=== PATIENT | male | born 1960 | race African-American/Black ===

== ENCOUNTER 2020-02-01 09:02 | Emergency (ER) | payer OTHER ==
[~2020-02-01] VITALS: Ht 185.4 cm; Wt 81.6 kg
[2020-02-01 09:30] VITALS: BP 159/84
[2020-02-01] MEDS ORDERED: KETOROLAC TROMETH 60MG/2ML VIAL IM ONE (09:45)
== END 2020-02-01 11:37 | disposition home or self-care (01) ==
LOC: ER 09:02
DX: S46.911A Strain of unspecified muscle, fascia and tendon at shoulder and upper arm level, right arm, initial encounter (principal); S39.012A Strain of muscle, fascia and tendon of lower back, initial encounter; I10 Essential (primary) hypertension; E78.5 Hyperlipidemia, unspecified; F17.210 Nicotine dependence, cigarettes, uncomplicated; X58.XXXA Exposure to other specified factors, initial encounter; Y93.89 Activity, other specified; Y92.89 Other specified places as the place of occurrence of the external cause; Y99.8 Other external cause status
CPT/HCPCS: 72100; 73030; 96372; 99284; J1885

== ENCOUNTER 2021-04-10 21:02 | Emergency (ER) | payer OTHER ==
[~2021-04-10] VITALS: Ht 177.8 cm; Wt 81.6 kg
[2021-04-10 22:24] LABS: Basophils # (auto) 0 10 ^3/uL (0-0.2); Basophils % (auto) 0.4 % (0.0-2.0); Eosinophils # (auto) 0 10 ^3/uL (0-0.8); Eosinophils % (auto) 0.4 % (0.0-7.0); Hematocrit 47.1 % (41.0-53.0); Hemoglobin 15.3 g/dL (13.5-17.5); Lymphocytes # (auto) 0.7 10 ^3/uL (0.4-5.4); Lymphocytes % (auto) 20.3 % (10.0-50.0); Mean Corpuscular Hemoglobin 27.6 pg (28.0-32.0); Mean Corpuscular Hgb Conc. 32.5 g/dL (32.0-36.0); Mean Corpuscular Volume 84.7 fL (80.0-100.0); Monocytes # (auto) 0.2 10 ^3/uL (0-1.3); Monocytes % (auto) 5.2 % (0.0-12.0); Neutrophils # (auto) 2.5 10 ^3/uL (1.6-8.6); Neutrophils % (auto) 73.7 % (37.0-80.0); Nucleated Red Blood Cells % 0.3 %; Red Blood Cells 5.57 10^6/uL (4.5-5.90); Red Cell Distribution Width 21.6 % (11.8-14.3); White Blood Cell 3.4 10^3/uL (4.4-10.8)
[2021-04-10 22:42] LABS: Albumin 1.7 g/dL (3.4-5.0)
[2021-04-10 22:48] LABS: Bilirubin, Total 0.2 mg/dL (0.2-1.0); Total Protein 4.4 g/dL (6.4-8.2)
[2021-04-10 22:53] LABS: Calcium 5.2 mg/dL (8.5-10.1); Potassium 2.4 mmol/L (3.5-5.1)
[2021-04-10] MEDS ORDERED: POTASSIUM CHL 20 Meq TABLET PO ONE (23:00)
[2021-04-10 23:36] LABS: BUN/Creatinine Ratio 17.6
[2021-04-11] MEDS ORDERED: SODIUM CHLORIDE 0.9% 1,000 ML IV ONE (03:30)
[2021-04-11] MEDS ORDERED: CALCIUM GLUC 1,000mg/50ml-NS 50 ML IV ONE (03:30)
[2021-04-11 05:00] VITALS: BP 113/80
== END 2021-04-11 06:16 | disposition home or self-care (01) ==
LOC: EDBD 21:02 → ER 21:05
DX: R55 Syncope and collapse (principal); I10 Essential (primary) hypertension; F17.210 Nicotine dependence, cigarettes, uncomplicated; E87.6 Hypokalemia; E87.0 Hyperosmolality and hypernatremia; E46 Unspecified protein-calorie malnutrition; E83.51 Hypocalcemia
CPT/HCPCS: 36415; 70450; 71045; 80053; 84132; 84484; 85025; 93005; 96365; 99285; J0610; J7030

== ENCOUNTER 2025-02-09 07:06 | Inpatient (IN) | payer MEDICARE, OTHER ==
[2025-02-09] VITALS (14 sets, daily range): BP systolic 111–174; BP diastolic 68–83; PULSE 89–120; RESP 19–38; TEMP 99.9–102.1; O2SAT 76–97
[~2025-02-09] VITALS: Ht 182.9 cm; Wt 66.9 kg
--- NOTE | 2025-02-09 07:16 | ECG ---
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
[2025-02-09] MEDS: ACETAMINOPHEN IV 1000 MG/100ML (10MG/ML) IV ONE (07:36)
--- NOTE | 2025-02-09 08:07 | ED.PDOC ---
History of Present Illness HPI Comments 64-YEAR-OLD MALE BIBA WITH PRIOR MEDICAL HISTORY OF USING 4L OF O2 NC AT HOME AND A CHIEF COMPLAINT OF SHORTNESS A BREATH. EMS REPORT, WHEN THEY ARRIVED ON SCENE THE PATIENT HAD A SATURATION PERCENTAGE OF 60% ON [address] L. IN ROUTE TO THE ED THE PATIENT WAS GIVEN A BREATHING TREATMENT OF TO ALBUTEROL AND ONE ATIVAN FOR WHICH BROUGHT THE SATURATION LEVEL OF 86%, AND AN 18 GAUGE WAS PLACED ON THE LEFT HAND. DENIES CHILLS, FEVER, N/V/D, CP. NO OTHER ASSOCIATED SYMPTOMS, MODIFIERS, RECENT INJURIES OR SICK CONTACTS PRESENT AT THIS TIME. Chief Complaint: Shortness of Breath Time Seen by MD: 07:30 Primary Care Provider: UNKNOWN Reviewed Notes: Nurses Notes, Medications, Allergies Allergies: Coded Allergies: NO KNOWN ALLERGIES (Unverified , 02/01/20) Information Source: Patient, Emergency Med Personnel Mode of Arrival: EMS Severity: Moderate Timing: Hours Duration: Since onset, Hours Prehospital treatment: None Past Medical History PAST MEDICAL HISTORY: HTN Past Medical History (Other): HAS HAS 4L OF O2 AT HOME Surgical History: Denies all surgeries Family History Family History: Reviewed,noncontributory to illness, Unknown Social History Smoker: Cigarettes Alcohol: Denies ETOH Use Drugs: Denies Drug Use Lives In: Home Constitutional: denies: chills, diaphoresis, fatigue, fever, malaise, sweats, weakness, others EENTM: denies: blurred vision, double vision, ear bleeding, ear discharge, ear drainage, ear pain, ear ringing, eye pain, eye redness, hearing loss, mouth pain, mouth swelling, nasal discharge, nose bleeding, nose congestion, nose pain, photophobia, tearing, throat pain, throat swelling, voice changes, others Respiratory: reports: shortness of breath; denies: cough, hemoptysis, orthopnea, SOB at rest, SOB with excertion, stridor, wheezing, others Cardiovascular: denies: chest pain, dizzy spells, diaphoresis, Dyspnea on exertion, edema, irregular heart beat, left arm pain, lightheadedness, palpitations, PND, syncope, others Gastrointestinal: denies: abdomen distended, abdominal pain, blood streaked bowels, constipated, diarrhea, dysphagia, difficulty swallowing, hematemesis, melena, nausea, poor appetite, poor fluid intake, rectal bleeding, rectal pain, vomiting, others Genitourinary: denies: burning, dysuria, flank pain, frequency, hematuria, incontinence, penile discharge, penile sore, pain, testicle pain, testicle swelling, urgency, others Neurological: denies: dizziness, fainting, headache, left sided numbness, left sided weakness, numbness, paresthesia, pre-existing deficit, right sided numbness, right sided weakness, seizure, speech problems, tingling, tremors, weakness, others Musculoskeletal: denies: back pain, gout, joint pain, joint swelling, muscle pain, muscle stiffness, neck pain, others Integumetry: denies: bruises, change in color, change in hair/nails, dryness, laceration, lesions, lumps, rash, wounds, others Allergic/Immunocompromised: denies: Difficulty Healing, Frequent Infections, Hives, Itching, others Hematologic/Lymphatic: denies: anemia, blood clots, easy bleeding, easy bruising, swollen glands, others Endocrine: denies: excessive hunger, excessive sweating, excessive thirst, excessive urination, flushing, intolerance to cold, intolerance to heat, unexplained weight gain, unexplained weight loss, others Psychiatric: denies: anxiety, bipolar disorder, depression, hopeless, panic disorder, schizophrenia, sleepless, suicidal, others All Other Systems: Reviewed and Negative Physical Exam General Appearance: No Apparent Distress, Normal HEENT: Normal ENT Inspection, Pharynx Normal, TMs Normal Neck: Full Range of Motion, Non-Tender, Normal, Normal Inspection Respiratory: Chest Non-Tender, Lungs Clear, No Accessory Muscle Use, No Respiratory Distress, Normal Breath Sounds Cardiovascular: No Edema, No JVD, No Murmur, No Gallop, Normal Peripheral Pulses, Regular Rate/Rhythm Breast Exam: Deferred Gastrointestinal: No Organomegaly, Non Tender, No Pulsatile Mass, Normal Bowel Sounds, Soft Genitalia: Deferred Pelvic: Deferred Rectal: Deferred Extremities: No calf tenderness, Normal capillary refill, Normal inspection, Normal range of motion, Non-tender, No pedal edema Musculoskeletal : Apperance: Normal Neurologic: Alert, 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 Was a procedure done?: No EKG EKG : Pulse Rate (adult): 121 [place]: Normal Cardiac Rhythm: ST Block: None Hypertrophy: None ST: Normal Differential Dx Considerations may include: ACS cover CVA, viral syndrome, electrolyte abnormality, infectious etiology X-Ray, Labs, Meds, VS Vital Signs Date Time Temp Pulse Resp B/P (MAP) Pulse Ox O2 Delivery O2 Flow Rate FiO2 02/09/25 11:28 95 23 35.0 80 02/09/25 11:06 96 22 118/67 02/09/25 09:27 112 20 35.0 80 02/09/25 08:18 121 02/09/25 08:00 102.1 117 28 119/56 (77) 81 102.1 02/09/25 08:00 117 02/09/25 08:00 117 28 81 Non-Rebreather 15 N/A 02/09/25 07:32 117 24 50.0 70 02/09/25 07:11 121 02/09/25 07:10 120 19 85 Nasal Cannula* 4 36 02/09/25 07:10 103.8 120 19 130/58 (82) 85 103.8 02/09/25 07:06 103.8 121 26 130/58 79 103.8 02/09/25 07:06 79 Venturi Mask 15 N/A Lab Test 02/09/25 09:06 02/09/25 08:00 02/09/25 07:37 Range/Units Blood Gas Specimen Type Arterial Blood Gas Sample Site Left radial Blood Gas Patient Temperature 37.0 Arterial Blood Date Drawn [id number] Arterial Blood pH 7.525 H 7.350-7.450 Arterial Blood Partial Pressure CO2 25.0 L 35.0-48.0 mmHg Arterial Blood Partial Pressure O2 48.9 *L 83.0-108.0 mmHg Arterial Blood HCO3 20.2 L 21.0-28.0 mmol/L Arterial Blood Oxygen Saturation 83.8 *L 94.0-98.0 % Arterial Blood Base Excess -2.2 L -2.0-3.0 mmol/L Arterial Blood Oxyhemoglobin 81.4 L 94.0-98.0 % Arterial Blood Carboxyhemoglobin 1.9 H 0.5-1.5 % Arterial Blood Methemoglobin 1.0 0.0-1.5 % Terrance Test Modified Blood Gas Total Hemoglobin 6.60 *L 13.5-17.5 g/dL Blood Gas Liter Flow 35.00 Blood Gas Modality High flow FiO2 % 60.0 Blood Gas Critical Value Read Back Yes Blood Gas Notified Whom Petra rojas md Blood Gas Notified Time [id number] Blood Gas Notified By Stuart kelley rrt Urine Color Pending Urine Clarity Pending Urine pH Pending Urine Specific [place] Pending Urine Protein Pending Urine Ketones Pending Urine Blood Pending Urine Nitrite Pending Urine Bilirubin Pending Urine Urobilinogen Pending Urine Leukocyte Esterase Pending Urine RBC Pending Urine Microscopic WBC Pending Urine Squamous Epithelial Cells Pending Urine Bacteria Pending Urine Glucose Pending White Blood Count 37.3 *H 4.4-10.8 10^3/uL Red Blood Count 2.82 L 4.5-5.90 10^6/uL Hemoglobin 7.5 L 13.5-17.5 g/dL Hematocrit 23.3 L 41.0-53.0 % Mean Corpuscular Volume 82.9 80.0-100.0 fL Mean Corpuscular Hemoglobin 26.6 L 28.0-32.0 pg Mean Corpuscular Hemoglobin Concent 32.0 32.0-36.0 g/dL Red Cell Distribution Width 27.5 H 11.8-14.3 % Platelet Count 100 L 140-450 10^3/uL Mean Platelet Volume 8.1 6.9-10.8 fL Neutrophils (%) (Auto) 37.0-80.0 % Lymphocytes (%) (Auto) 10.0-50.0 % Monocytes (%) (Auto) 0.0-12.0 % Basophils (%) (Auto) 0.0-2.0 % Neutrophils # (Auto) 1.6-8.6 10 ^3/uL Lymphocytes # (Auto) 0.4-5.4 10 ^3/uL Monocytes # (Auto) 0-1.3 10 ^3/uL Differential Total Cells Counted 100.0 100 Neutrophils % (Manual) 44 37.0-80.0 Band Neutrophils % (Manual) 11 Lymphocytes % (Manual) 16 10.0-50.0 Monocytes % (Manual) 3 0-12 Eosinophils % (Manual) 0 0-7 Basophils % (Manual) 0 0.0-2.0 Metamyelocytes % (manual) 9 Myelocytes % (Manual) 14 Promyelocytes % (Manual) 1 Blast Cells % (Manual) 0 Nucleated Red Blood Cells 10.0 % Reactive Lymphocytes 2 Platelet Estimate Decrea Large Platelets Few Prothrombin Time 11.9 H 9.3-11.8 sec Prothrombin Time INR 1.14 0.9-1.15 Activated Partial Thromboplast Time 38.2 H 24.5-34.5 SEC Sodium Level 142 136-145 mmol/L Potassium Level 5.4 H 3.5-5.1 mmol/L Chloride Level 111 H 98-107 mmol/L Carbon Dioxide Level 20 20-31 mmol/L Anion Gap 11 5-15 Blood Urea Nitrogen 34 H 9-23 mg/dL Creatinine 1.56 H 0.700-1.30 mg/dL Glomerular Filtration Rate Calc 49 >90 mL/min BUN/Creatinine Ratio 21.8 H 10.0-20.0 Serum Glucose 94 74-106 mg/dL Lactic Acid Level 1.5 0.4-2.0 mmol/L Calcium Level 7.7 L 8.7-10.4 mg/dL Total Bilirubin 0.7 0.2-1.0 mg/dL Aspartate Amino Transferase (AST) 61 H 13-40 U/L Alanine Aminotransferase (ALT) 26 7-40 U/L Alkaline Phosphatase 133 H 46-116 U/L Total Protein 5.2 L 5.7-8.2 g/dL Albumin 3.2 3.2-4.8 g/dL Current Medications Medications (Trade) Dose Ordered Sig/Raulito Route Start Time Stop Time Status Last Admin Acetaminophen (Ofirmev) 1,000 mg ONCE ONCE IV 02/09/25 07:30 02/09/25 07:31 DC 02/09/25 07:36 Lactated Ringer's 2,350 ml @ 2,350 mls/hr ONCE ONCE IV 02/09/25 07:30 02/09/25 08:29 DC 02/09/25 08:20 Cefepime HCl 50 ml @ 12.5 mls/hr NOW ONCE IV 02/09/25 07:30 02/09/25 11:29 DC 02/09/25 08:20 Morphine Sulfate 2 mg ONCE ONCE IV 02/09/25 10:45 02/09/25 10:50 DC 02/09/25 11:06 Ondansetron HCl (Zofran) 4 mg ONCE ONCE IV 02/09/25 10:45 02/09/25 10:50 DC 02/09/25 11:06 Time of 1ST Reevaluation: 08:00 Reevaluation 1ST: Unchanged Patient Education/Counseling: Diagnosis, Treatment, Prognosis Family Education/Counseling: No Family Present SEPSIS Sepsis Screen Date sepsis recognized/suspect: Feb 09, 2025 Time Sepsis recognized/suspect: 0743 Recent Procedure: No On Antibiotic Therapy: No Respiratory Rate >20: No Heart Rate >90: Yes Temp<36 C (96.8 F) or >38.3 C: Yes SBP <90 or MAP <65 mmHG: No New Acute Mental Status Change: No Is the patient on CPAP, BIPAP,: No Physician Orders Urinalysis (02/09/25 07:27) Chest Portable (02/09/25 07:27) Accucheck (02/09/25 07:27) Blood Culture (02/09/25 07:27) Notify Md If Map <65 Or Bp<90 (02/09/25 07:27) If Map<65 Start Vasopressor (02/09/25 07:27) Sepsis Reassesment After Fluid (02/09/25 08:27) Oxygen By High-Flow (02/09/25 07:32) Abg W/ Co-Ox (02/09/25 08:45) Vital Signs Date Time Temp Pulse Resp B/P (MAP) Pulse Ox O2 Delivery O2 Flow Rate FiO2 02/09/25 11:28 95 23 35.0 80 02/09/25 11:06 96 22 118/67 02/09/25 09:27 112 20 35.0 80 02/09/25 08:18 121 02/09/25 08:00 102.1 117 28 119/56 (77) 81 102.1 02/09/25 08:00 117 02/09/25 08:00 117 28 81 Non-Rebreather 15 N/A 02/09/25 07:32 117 24 50.0 70 02/09/25 07:11 121 02/09/25 07:10 120 19 85 Nasal Cannula* 4 36 02/09/25 07:10 103.8 120 19 130/58 (82) 85 103.8 02/09/25 07:06 103.8 121 26 130/58 79 103.8 02/09/25 07:06 79 Venturi Mask 15 N/A Laboratory Tests Test 02/09/25 07:37 Lactic Acid Level 1.5 mmol/L (0.4-2.0) White Blood Count 37.3 10^3/uL (4.4-10.8) *H Medications Medications Dose Ordered Sig/Raulito Route Start Time Stop Time Status Last Admin Dose Admin Acetaminophen 1,000 mg ONCE ONCE IV 02/09/25 07:30 02/09/25 07:31 DC 02/09/25 07:36 Cefepime HCl 50 ml @ 12.5 mls/hr NOW ONCE IV 02/09/25 07:30 02/09/25 11:29 DC 02/09/25 08:20 Lactated Ringer's 2,350 ml @ 2,350 mls/hr ONCE ONCE IV 02/09/25 07:30 02/09/25 08:29 DC 02/09/25 08:20 Morphine Sulfate 2 mg ONCE ONCE IV 02/09/25 10:45 02/09/25 10:50 DC 02/09/25 11:06 Ondansetron HCl 4 mg ONCE ONCE IV 02/09/25 10:45 02/09/25 10:50 DC 02/09/25 11:06 Departure 1 Departure Time of Disposition: 11:37 (Patient likely with sepsis. Patient's septic shock. Patient presented with acute shortness of breath concerning for acute on chronic COPD Exacerbation, Pneumonia, ACS, CHF, Pneumothorax. Less likely PE, Dissection. Data: 1. I ordered and reviewed the result of at least 3 labs including a CBC, BMP, and Troponin. 2. I independently interpreted the following tests: Chest X-ray shows .Risk:This patient has a high risk of morbidity due to further diagnostic testing or treatment and may suffer from respiratory or cardiac etiology . Workup reveals a likely COPD Exacerbation and patient should be admitted for further workup. and possible expert consultation.) Impression: Primary Impression: Acute and chronic respiratory failure Additional Impression: Sepsis Qualified Codes: A41.9 - Sepsis, unspecified organism; R65.21 - Severe sepsis with septic shock; J96.01 - Acute respiratory failure with hypoxia Disposition: ADMITTED INPATIENT Admit to: [facility] Condition: Critical Critical Care Note Critical Care Time?: Yes Critical care comment: Acute respiratory failure Authorized and Performed by: Darrick Rojas MD Total critical care time: Approximately 128 minutes Due to a high probability of clinically significant, life threatening deterioration, the patient required my highest level of preparedness to intervene emergently and I personally spent this critical care time directly and personally managing the patient. This critical care time included obtaining a history; examining the patient; pulse oximetry; ordering and review of studies; arranging urgent treatment with development of a management plan; evaluation of patient's response to treatment; frequent reassessment; and, discussions with other providers. This critical care time was performed to assess and manage the high probability of imminent, life-threatening deterioration that could result in multi-organ failure. It was exclusive of separately billable procedures and treating other patients and teaching time. Please see my other sections and the rest of the note for further information on patient assessment and treatment. Stability Stability form required: No I personally scribed for DARRICK ROJAS MD ([email or web address]) on 02/09/25 at 08:07. Electronically submitted by Nato Melgoza ([employer]). I personally scribed for DARRICK ROJAS MD ([email or web address]) on 02/09/25 at 08:18. Electronically submitted by Nato Melgoza ([employer]). DARRICK ROJAS MD Feb 09, 2025 08:07
[2025-02-09 08:09] LABS: Hematocrit 23.3 % (41.0-53.0); Hemoglobin 7.5 g/dL (13.5-17.5); Mean Corpuscular Hemoglobin 26.6 pg (28.0-32.0); Mean Corpuscular Volume 82.9 fL (80.0-100.0)
[2025-02-09 08:13] LABS: INR 1.14 (0.9-1.15); Partial Thromboplastin Time 38.2 SEC (24.5-34.5); Prothrombin Time 11.9 sec (9.3-11.8)
[2025-02-09 08:16] LABS: Alanine Aminotransferase 26 U/L (7-40); Albumin 3.2 g/dL (3.2-4.8); Alkaline Phosphatase 133 U/L (46-116); Anion Gap 11 (5-15); BUN/Creatinine Ratio 21.8 (10.0-20.0); Blood Urea Nitrogen 34 mg/dL (9-23); Calcium 7.7 mg/dL (8.7-10.4); Carbon Dioxide 20 mmol/L (20-31); Chloride 111 mmol/L (98-107); Glucose 94 mg/dL (74-106); Potassium 5.4 mmol/L (3.5-5.1); Sodium 142 mmol/L (136-145); Total Protein 5.2 g/dL (5.7-8.2)
[2025-02-09 08:17] LABS: Bilirubin, Total 0.7 mg/dL (0.2-1.0)
[2025-02-09] MEDS: LACTATED RINGER'S 2,350 ML IV ONE (08:20)
[2025-02-09] MEDS: CEFEPIME 1GM/50ML 50 ML IV ONE (08:20)
--- NOTE | 2025-02-09 08:27 | DVH ---
EXAM: XY CHEST PORTABLE Indication: sob Technique: Single frontal view of the chest was obtained Comparison: XR CHEST 1 VIEW on DOS: 01/31/25, CT CHEST on DOS: 01/30/25, XR CHEST 1 VIEW on DOS: 5, XR CHEST 2 VIEWS on DOS: 01/25/25, CT CHEST on DOS: 01/18/25 FINDINGS: Lines and Tubes: None Lungs: Diffuse interstitial opacities. Pleura: No effusion. No pneumothorax. Cardiomediastinal contours: Unremarkable Bones: No acute osseous abnormality. IMPRESSION: Diffuse interstitial opacities suggestive of pulmonary edema or atypical infection.
[2025-02-09 08:58] LABS: Nucleated Red Blood Cells % 10.0 %; Total Cells Counted 100.0 (100)
[2025-02-09 09:27] LABS: Base Excess -2.2 mmol/L (-2.0-3.0)
[2025-02-09] MEDS: ONDANSETRON HCL 4 MG/2 ML VIAL IV ONE (11:06)
[2025-02-09] MEDS: MORPHINE SULFATE 4 MG/ML SYR/VIAL IV ONE (11:06)
[2025-02-09 11:40] LABS: Urine Protein, UAD 2+ (Negative)
[2025-02-09] MEDS ORDERED: ONDANSETRON HCL 4 MG/2 ML VIAL IV PRN (12:00)
[2025-02-09] MEDS ORDERED: MORPHINE SULFATE INJ 2 MG/ml SYRG IV PRN (12:00)
[2025-02-09] MEDS ORDERED: NITROGLYCERIN 0.4 MG SL TAB SL PRN (12:00)
[2025-02-09] MEDS ORDERED: DOCUSATE SOD 100 MG CAP PO PRN (12:00)
[2025-02-09] MEDS ORDERED: FERR325T20 PO (12:41)
[2025-02-09] MEDS ORDERED: POTA-211 PO (12:41)
[2025-02-09] MEDS ORDERED: NICO21DI37 TOP (12:41)
[2025-02-09] MEDS: SODIUM CHLORIDE 0.9% 1,000 ML IV ONE (13:00)
[2025-02-09] MEDS: ALBUTEROL SULF 2.5 MG/0.5ML(0.5%) NEB SOLN NEB SCH (13:12)
[2025-02-09] MEDS: IPRATROPIUM BROM 0.5 MG/2.5ML INH SOL NEB SCH (13:12)
[2025-02-09] MEDS: ALBUTEROL SULF 2.5 MG/0.5ML(0.5%) NEB SOLN ONE (13:13)
[2025-02-09] MEDS: IPRATROPIUM BROM 0.5 MG/2.5ML INH SOL ONE (13:13)
--- NOTE | 2025-02-09 13:21 | DVHHP2 ---
History of Present Illness Reason for Visit: Shortness of breath History of Present Illness Chan Oneal is a 64-year-old male with past medical history of hypertension, COPD oxygen dependent, who came to the hospital for shortness of breath. Patient states he woke up this morning with severe shortness of breath. He states he was recently admitted at [facility] for pneumonia and sent home with antibiotics. He also had multiple blood transfusions and a bone marrow biopsy during that admission. Pulmonary: COPD (on 4L) Past Surgical History: None Smoke: Quit (3 weeks ago) ALCOHOL: none Drugs: None Lives: with Family Domestic Violence: Neg Review of Systems Constitutional: No: Fever, Chills, Sweats, Weakness, Malaise, Other Eyes: No: Pain, Vision change, Conjunctivae inflammation, Eyelid inflammation, Other, Redness ENT: No: Ear pain, Ear discharge, Nose pain, Nose discharge, Nose congestion, Mouth pain, Mouth swelling, Throat pain, Throat swelling, Other Respiratory: Shortness of breath, SOB with excertion, Wheezing; No: Cough, Dry, Hemoptysis, Pleuritic Pain, Sputum, Wheezing, Other Cardiovascular: No: Chest Pain, Palpitations, Orthopnea, Paroxysmal Noc. Dyspnea, Edema, Lt Headedness, Other Gastrointestinal: No: Nausea, Vomiting, Abdominal Pain, Diarrhea, Constipation, Melena, Hematochezia, Other Genitourinary: No Dysuria, No Frequency, No Incontinence, No Hematuria, No Retention, No Other Musculoskeletal: No: other, neck pain, shoulder pain, arm pain, back pain, hand pain, leg pain, foot pain Skin: No: Rash, Lesions, Jaundice, Bruising, Other Neurological: No: Weakness, Numbness, Incoordination, Change in speech, Confusion, Seizures, Other Allergies: Coded Allergies: NO KNOWN ALLERGIES (Unverified , 02/01/20) Exam Vital Signs Vital Signs Date Time Temp Pulse Resp B/P (MAP) Pulse Ox O2 Delivery O2 Flow Rate FiO2 02/09/25 11:37 92 19 118/67 02/09/25 11:28 35.0 80 02/09/25 10:00 98 02/09/25 08:00 102.1 102.1 02/09/25 08:00 Non-Rebreather General Appearance: Alert, Oriented X3, Cooperative, moderate distress HEENT: Atraumatic, PERRLA, Mucous membr. moist/pink Respiratory: Other (Diminished and wheezing ) Cardiovascular: Regular rate, Normal S1, Normal S2 Abdominal: Normal bowel sounds, Soft Extremities: No clubbing, No cyanosis, No edema, Normal pulses Skin: No rashes, No breakdown, No significant lesion Neuro: Normal speech, Other (weakness) Psych/Mental Status: Mental status NL Labs/Xrays Labs Test 02/09/25 09:06 02/09/25 08:00 02/09/25 07:37 Range/Units Blood Gas Specimen Type Arterial Blood Gas Sample Site Left radial Blood Gas Patient Temperature 37.0 Arterial Blood Date Drawn [id number] Arterial Blood pH 7.525 H 7.350-7.450 Arterial Blood Partial Pressure CO2 25.0 L 35.0-48.0 mmHg Arterial Blood Partial Pressure O2 48.9 *L 83.0-108.0 mmHg Arterial Blood HCO3 20.2 L 21.0-28.0 mmol/L Arterial Blood Oxygen Saturation 83.8 *L 94.0-98.0 % Arterial Blood Base Excess -2.2 L -2.0-3.0 mmol/L Arterial Blood Oxyhemoglobin 81.4 L 94.0-98.0 % Arterial Blood Carboxyhemoglobin 1.9 H 0.5-1.5 % Arterial Blood Methemoglobin 1.0 0.0-1.5 % Terrance Test Modified Blood Gas Total Hemoglobin 6.60 *L 13.5-17.5 g/dL Blood Gas Liter Flow 35.00 Blood Gas Modality High flow FiO2 % 60.0 Blood Gas Critical Value Read Back Yes Blood Gas Notified Whom Petra rojas md Blood Gas Notified Time [id number] Blood Gas Notified By Stuart kelley rrt Urine Color Light-yellow Yellow Urine Clarity Clear Clear Urine pH 7.0 5.0-9.0 Urine Specific [place] 1.014 1.001-1.035 Urine Protein 2+ H Negative Urine Ketones Negative Negative Urine Blood Negative Negative /uL Urine Nitrite Negative Negative Urine Bilirubin Negative Negative Urine Urobilinogen Normal Negative mg/dL Urine Leukocyte Esterase Negative Negative /uL Urine RBC <1 0 - 3 /hpf Urine Microscopic WBC 1 0-3 /HPF Urine Squamous Epithelial Cells Few <5 /hpf Urine Bacteria None seen None Seen /hpf Urine Glucose Normal Normal mg/dL White Blood Count 37.3 *H 4.4-10.8 10^3/uL Red Blood Count 2.82 L 4.5-5.90 10^6/uL Hemoglobin 7.5 L 13.5-17.5 g/dL Hematocrit 23.3 L 41.0-53.0 % Mean Corpuscular Volume 82.9 80.0-100.0 fL Mean Corpuscular Hemoglobin 26.6 L 28.0-32.0 pg Mean Corpuscular Hemoglobin Concent 32.0 32.0-36.0 g/dL Red Cell Distribution Width 27.5 H 11.8-14.3 % Platelet Count 100 L 140-450 10^3/uL Mean Platelet Volume 8.1 6.9-10.8 fL Neutrophils (%) (Auto) 37.0-80.0 % Lymphocytes (%) (Auto) 10.0-50.0 % Monocytes (%) (Auto) 0.0-12.0 % Basophils (%) (Auto) 0.0-2.0 % Neutrophils # (Auto) 1.6-8.6 10 ^3/uL Lymphocytes # (Auto) 0.4-5.4 10 ^3/uL Monocytes # (Auto) 0-1.3 10 ^3/uL Differential Total Cells Counted 100.0 100 Neutrophils % (Manual) 44 37.0-80.0 Band Neutrophils % (Manual) 11 Lymphocytes % (Manual) 16 10.0-50.0 Monocytes % (Manual) 3 0-12 Eosinophils % (Manual) 0 0-7 Basophils % (Manual) 0 0.0-2.0 Metamyelocytes % (manual) 9 Myelocytes % (Manual) 14 Promyelocytes % (Manual) 1 Blast Cells % (Manual) 0 Nucleated Red Blood Cells 10.0 % Reactive Lymphocytes 2 Platelet Estimate Decrea Large Platelets Few Prothrombin Time 11.9 H 9.3-11.8 sec Prothrombin Time INR 1.14 0.9-1.15 Activated Partial Thromboplast Time 38.2 H 24.5-34.5 SEC Sodium Level 142 136-145 mmol/L Potassium Level 5.4 H 3.5-5.1 mmol/L Chloride Level 111 H 98-107 mmol/L Carbon Dioxide Level 20 20-31 mmol/L Anion Gap 11 5-15 Blood Urea Nitrogen 34 H 9-23 mg/dL Creatinine 1.56 H 0.700-1.30 mg/dL Glomerular Filtration Rate Calc 49 >90 mL/min BUN/Creatinine Ratio 21.8 H 10.0-20.0 Serum Glucose 94 74-106 mg/dL Lactic Acid Level 1.5 0.4-2.0 mmol/L Calcium Level 7.7 L 8.7-10.4 mg/dL Total Bilirubin 0.7 0.2-1.0 mg/dL Aspartate Amino Transferase (AST) 61 H 13-40 U/L Alanine Aminotransferase (ALT) 26 7-40 U/L Alkaline Phosphatase 133 H 46-116 U/L Total Protein 5.2 L 5.7-8.2 g/dL Albumin 3.2 3.2-4.8 g/dL EXAM: XY CHEST PORTABLE FINDINGS: Lines and Tubes: None Lungs: Diffuse interstitial opacities. Pleura: No effusion. No pneumothorax. Cardiomediastinal contours: Unremarkable Bones: No acute osseous abnormality. IMPRESSION: Diffuse interstitial opacities suggestive of pulmonary edema or atypical infection. SEPSIS Sepsis Screen Date sepsis recognized/suspect: Feb 09, 2025 Time Sepsis recognized/suspect: 742 Recent Procedure: No On Antibiotic Therapy: No Respiratory Rate >20: No Heart Rate >90: Yes Temp<36 C (96.8 F) or >38.3 C: Yes SBP <90 or MAP <65 mmHG: No New Acute Mental Status Change: No Is the patient on CPAP, BIPAP,: No Physician Orders Chest Portable (02/09/25 07:27) Accucheck (02/09/25 07:27) Blood Culture (02/09/25 07:27) Notify Md If Map <65 Or Bp<90 (02/09/25 07:27) If Map<65 Start Vasopressor (02/09/25 07:27) Sepsis Reassesment After Fluid (02/09/25 08:27) Oxygen By High-Flow (02/09/25 07:32) Abg W/ Co-Ox (02/09/25 08:45) Azithromycin 500mg/ 250ml (Zithromax 50 (02/10/25 10:00) Ceftriaxone Ivpb Rocephin (02/10/25 09:00) Albuterol Medneb (Ventolin Medneb) (02/09/25 12:00) Ipratropium Medneb (Atrovent Medneb) (02/09/25 12:00) Methylprednisolone Sod Succ (Solu Medrol (02/09/25 22:00) NS (02/09/25 12:00) Admit (02/09/25 11:59) Code Status (02/09/25 11:59) 2 Gm Sodium Diet (02/09/25 Lunch) Hydrocodone-Acet 5/325mg Tab ([place] 5/32 (02/09/25 12:00) Ondansetron Hcl (Zofran) (02/09/25 12:00) Docusate Sodium Capsule (Colace Capsule) (02/09/25 12:00) Complete Blood Count (02/10/25 04:00) Comprehensive Metabolic Panel (02/10/25 04:00) Condition: Critical (02/09/25 11:59) Acetaminophen Tablet (Tylenol Tablet) (02/09/25 12:00) Nitroglycerin Sublingual (Ntrostat Subli (02/09/25 12:00) Morphine Sulfate Injection (02/09/25 12:00) Stat Ekg For Chest Pain (02/09/25 11:59) Notify Md Of Changes From Base (02/09/25 11:59) Nut And Bolt Assembler For 24 Hours (02/09/25 11:59) Emergency Dysrhythmia Protocol (02/09/25 11:59) Rhythm Strips Once Every Shift (02/09/25 11:59) Oxygen By Nasal Cannula (02/09/25 11:59) Nicotine 21mg/24hr (Nicoderm 21mg/24hr) (02/10/25 10:00) (Nf) Ferrous Sulfate (Ferosul) (02/10/25 10:00) Vital Signs Date Time Temp Pulse Resp B/P (MAP) Pulse Ox O2 Delivery O2 Flow Rate FiO2 02/09/25 11:37 92 19 118/67 02/09/25 11:28 95 23 35.0 80 02/09/25 11:06 96 22 118/67 02/09/25 10:00 99 21 119/56 (77) 98 02/09/25 09:27 112 20 35.0 80 02/09/25 08:18 121 02/09/25 08:00 102.1 117 28 119/56 (77) 81 102.1 02/09/25 08:00 117 02/09/25 08:00 117 28 81 Non-Rebreather 15 N/A 02/09/25 07:32 117 24 50.0 70 02/09/25 07:11 121 02/09/25 07:10 120 19 85 Nasal Cannula* 4 36 02/09/25 07:10 103.8 120 19 130/58 (82) 85 103.8 02/09/25 07:06 103.8 121 26 130/58 79 103.8 02/09/25 07:06 79 Venturi Mask 15 N/A Laboratory Tests Test 02/09/25 07:37 Lactic Acid Level 1.5 mmol/L (0.4-2.0) White Blood Count 37.3 10^3/uL (4.4-10.8) *H Medications Medications Dose Ordered Sig/Raulito Route Start Time Stop Time Status Last Admin Dose Admin Acetaminophen 1,000 mg ONCE ONCE IV 02/09/25 07:30 02/09/25 07:31 DC 02/09/25 07:36 1,000 MG Cefepime HCl 50 ml @ 12.5 mls/hr NOW ONCE IV 02/09/25 07:30 02/09/25 11:29 DC 02/09/25 08:20 12.5 MLS/HR Lactated Ringer's 2,350 ml @ 2,350 mls/hr ONCE ONCE IV 02/09/25 07:30 02/09/25 08:29 DC 02/09/25 08:20 2,350 MLS/HR Morphine Sulfate 2 mg ONCE ONCE IV 02/09/25 10:45 02/09/25 10:50 DC 02/09/25 11:06 2 MG Ondansetron HCl 4 mg ONCE ONCE IV 02/09/25 10:45 02/09/25 10:50 DC 02/09/25 11:06 4 MG Assessment/Plan Assessment/Plan Assessment: Acute on chronic hypoxic respiratory failure, Sepsis, Pneumonia, Anemia, Malnutrition, Acute kidney injury, Hyperkalemia, Leukocytosis, Febrile, COPD, Plan: Admit to SDU, High flow oxygen, IV antibiotics, BiPAP as needed, IV steroids, Breathing treatments, Sputum culture, Blood cultures, Manage/Monitor electrolytes closely, Mange/Monitor H&H closely, Home medications reconciled, Plan discussed with: Patient My Orders Orders - INOCENTE SANTOS Procedure Category Date Status Time Azithromycin 500mg/ PHA 02/10/25 Transmitted 250ml (Zithromax 50 10:00 Ceftriaxone Ivpb PHA 02/10/25 Transmitted Rocephin 09:00 Albuterol Medneb PHA 02/09/25 Transmitted (Ventolin Medneb) 12:00 Ipratropium Medneb PHA 02/09/25 Transmitted (Atrovent Medneb) 12:00 Methylprednisolone PHA 02/09/25 Transmitted Sod Succ (Solu Medrol 22:00 NS PHA 02/09/25 Transmitted 12:00 Admit ADMIT 02/09/25 Transmitted 11:59 Code Status CODE 02/09/25 Transmitted 11:59 2 Gm Sodium Diet DIET 02/09/25 Transmitted Lunch Hydrocodone-Acet PHA 02/09/25 Transmitted 5/325mg Tab ([place] 12:00 Ondansetron Hcl [facility] 02/09/25 Transmitted (Zofran) 12:00 Docusate Sodium [facility] 02/09/25 Transmitted Capsule (Colace 12:00 Complete Blood Count LAB 02/10/25 Verified 04:00 Comprehensive LAB 02/10/25 Verified Metabolic Panel 04:00 Condition: Critical [facility] 02/09/25 Transmitted 11:59 Acetaminophen Tablet [facility] 02/09/25 Transmitted (Tylenol Tablet) 12:00 Nitroglycerin [facility] 02/09/25 Transmitted Sublingual (Ntrostat 12:00 Morphine Sulfate PHA 02/09/25 Transmitted Injection 12:00 Stat Ekg For Chest [facility] 02/09/25 Transmitted Pain 11:59 Notify Of Changes [facility] 02/09/25 Transmitted From Base 11:59 Nut And Bolt Assembler For [facility] 02/09/25 Transmitted 24 Hours 11:59 Emergency Dysrhythmia [facility] 02/09/25 Transmitted Protocol 11:59 Rhythm Strips Once [facility] 02/09/25 Transmitted Every Shift 11:59 Oxygen By Nasal RT 02/09/25 Transmitted Cannula 11:59 Nicotine 21mg/24hr [facility] 02/10/25 Verified (Nicoderm 21mg/24hr) 10:00 (Nf) Ferrous Sulfate [facility] 02/10/25 Verified (Ferosul) 10:00 Date of Service: Feb 09, 2025 Billing Provider: INOCENTE SANTOS Common Visit Codes: [id number] INP/OBS CARE (HIGH) INOCENTE SANTOS Feb 09, 2025 13:21
[2025-02-09] MEDS: ACETAMINOPHEN 325 MG TAB PO PRN (15:50)
[2025-02-09] MEDS: HYDROcodone-ACET 5/325MG TAB PO PRN (17:19)
[2025-02-09 19:18] LABS: Potassium 4.9 mmol/L (3.5-5.1); Sodium 139 mmol/L (136-145)
[2025-02-09 19:19] LABS: Anion Gap 10 (5-15)
[2025-02-09 19:24] LABS: Glucose 82 mg/dL (74-106)
[2025-02-09 19:25] LABS: BUN/Creatinine Ratio 21.0 (10.0-20.0)
[2025-02-09 19:32] LABS: Blood Urea Nitrogen 35 mg/dL (9-23); Calcium 7.4 mg/dL (8.7-10.4); Carbon Dioxide 20 mmol/L (20-31); Chloride 109 mmol/L (98-107)
[2025-02-09] MEDS: methylPREDNISolone SOD SUCC 40 MG/ML VL IV SCH (21:53)
[2025-02-10] VITALS (12 sets, daily range): BP systolic 112–171; BP diastolic 64–90; PULSE 75–130; RESP 13–35; TEMP 98–98.4; O2SAT 78–99
[2025-02-10 01:03] LABS: Base Excess -4.7 mmol/L (-2.0-3.0)
[2025-02-10 04:52] LABS: Mean Corpuscular Hemoglobin 26.4 pg (28.0-32.0)
[2025-02-10 04:55] LABS: Hematocrit 21.0 % (41.0-53.0); Mean Corpuscular Volume 85.1 fL (80.0-100.0)
[2025-02-10 04:58] LABS: Hemoglobin 6.5 g/dL (13.5-17.5)
[2025-02-10 05:04] LABS: Alanine Aminotransferase 23 U/L (7-40); Anion Gap 10 (5-15); BUN/Creatinine Ratio 22.0 (10.0-20.0); Sodium 137 mmol/L (136-145)
[2025-02-10 05:05] LABS: Albumin 3.0 g/dL (3.2-4.8); Alkaline Phosphatase 138 U/L (46-116); Bilirubin, Total 0.5 mg/dL (0.2-1.0); Blood Urea Nitrogen 37 mg/dL (9-23); Calcium 7.7 mg/dL (8.7-10.4); Carbon Dioxide 18 mmol/L (20-31); Chloride 109 mmol/L (98-107); Glucose 113 mg/dL (74-106); Potassium 5.4 mmol/L (3.5-5.1); Total Protein 4.9 g/dL (5.7-8.2)
[2025-02-10 05:51] LABS: Nucleated Red Blood Cells % 4.0 %; Total Cells Counted 100.0 (100)
[2025-02-10] MEDS ORDERED: PATIENTS OWN MEDICATION (Ferrous Sulfate (Ferosul) 1 TAB) PO SCH (10:00)
--- NOTE | 2025-02-10 10:16 | DVHPN2 ---
Subjective The patient is seen and examined at bedside. On high-flow. Complain of shortness for breath. Reviewed: Care Plan, H&P, Labs, Medications, Previous Orders, Radiology Changes from previous H/P or p: No Changes Eyes: No Pain, No Vision change, No Conjunctivae inflammation, No Eyelid inflammation, No Other, No Redness ENT: No Ear pain, No Ear discharge, No Nose pain, No Nose discharge, No Nose congestion, No Mouth pain, No Mouth swelling, No Throat pain, No Throat swelling, No Other Cardiovascular: No Chest Pain, No Palpitations, No Orthopnea, No Paroxysmal Noc. Dyspnea, No Edema, No Lt Headedness, No Other Respiratory: No Cough, No Dry; Shortness of breath, SOB with excertion, W heezing; No Hemoptysis, No Pleuritic Pain, No Sputum, No Other Gastrointestinal: No Nausea, No Vomiting, No Abdominal Pain, No Diarrhea, No Constipation, No Melena, No Hematochezia, No Other Genitourinary: No Dysuria, No Frequency, No Incontinence, No Hematuria, No Retention, No Other Musculoskeletal: No other, No neck pain, No shoulder pain, No arm pain, No back pain, No hand pain, No leg pain, No foot pain Skin: No Rash, No Lesions, No Jaundice, No Bruising, No Other Objective Vitals Vital Signs Date Time Temp Pulse Resp B/P (MAP) Pulse Ox O2 Delivery O2 Flow Rate FiO2 02/10/25 09:30 98.2 84 20 128/69 (88) 94 98.2 02/10/25 06:07 40.0 70 02/09/25 23:38 Nasal Cannula Intake/Output Intake and Output 02/10/25 07:00 Intake Total 625 ml Output Total 1000 ml Balance -375 ml Intake IV Total 625 ml Output Urine Total 1000 ml General Appearance: Alert, Cooperative HEENT: Atraumatic, PERRLA, EOMI, Mucous membr. moist/pink Neck: Supple Lungs: Clear to auscultation, Normal air movement Cardiovascular: Regular rate, Normal S1, Normal S2, No murmurs, Gallops, Rubs Abdomen: Normal bowel sounds, Soft, No tenderness Genitourinary: Tenderness Neuro: Cranial nerves 3-12 NL Psych/Mental Status: Mental status NL Medications Current Medications Medications Dose Ordered Sig/Raulito Route Start Time Stop Time Status Last Admin Dose Admin Azithromycin 250 ml @ 125 mls/hr DAILY IV 02/10/25 10:00 Ceftriaxone Sodium 50 ml @ 100 mls/hr DAILY@09 IV 02/10/25 09:00 02/10/25 09:17 100 MLS/HR Albuterol 2.5 mg Q6HWA [facility] [place] 02/09/25 12:00 02/10/25 06:06 2.5 MG Ipratropium [place] 0.5 mg Q6HWA [facility] [place] 02/09/25 12:00 02/10/25 06:06 0.5 MG Methylprednisolone Sodium Succinate 40 mg BID IV 02/09/25 22:00 02/09/25 21:53 40 MG Acetaminophen/ Hydrocodone Bitart 1 tab Q4HP PRN PO 02/09/25 12:00 02/10/25 01:32 1 TAB Ondansetron HCl 4 mg Q4HP PRN IV 02/09/25 12:00 Docusate Sodium 100 mg BIDPRN PRN PO 02/09/25 12:00 Acetaminophen 650 mg Q6HP PRN PO 02/09/25 12:00 02/09/25 23:23 650 MG Nitroglycerin 0.4 mg Q5MINP PRN SL 02/09/25 12:00 Morphine Sulfate 2 mg Q30M PRN IV 02/09/25 12:00 Nicotine 1 patch DAILY TD 02/10/25 10:00 Patient Own Medication 1 tab DAILY PO 02/10/25 10:00 UNV Ferrous Sulfate 325 mg DAILY PO 02/10/25 10:00 Laboratory Results Laboratory Tests 02/10/25 04:05 Chemistry Test 02/09/25 18:40 02/10/25 04:05 Calcium Level 7.4 mg/dL (8.7-10.4) L 7.7 mg/dL (8.7-10.4) L Albumin 3.0 g/dL (3.2-4.8) L Total Protein 4.9 g/dL (5.7-8.2) L LFT Test 02/10/25 04:05 Alanine Aminotransferase (ALT) 23 U/L (7-40) Alkaline Phosphatase 138 U/L (46-116) H Aspartate Amino Transferase (AST) 72 U/L (13-40) H Total Bilirubin 0.5 mg/dL (0.2-1.0) Urinalysis Test 02/09/25 08:00 Urine Color Light-yellow (Yellow) Urine Clarity Clear (Clear) Urine pH 7.0 (5.0-9.0) Urine Specific [place] 1.014 (1.001-1.035) Urine Protein 2+ (Negative) H Urine Ketones Negative (Negative) Urine Blood Negative /uL (Negative) Urine Nitrite Negative (Negative) Urine Bilirubin Negative (Negative) Urine Urobilinogen Normal mg/dL (Negative) Urine Leukocyte Esterase Negative /uL (Negative) Urine RBC <1 /hpf (0 - 3) Urine Microscopic WBC 1 /HPF (0-3) Urine Squamous Epithelial Cells Few /hpf (<5) Urine Bacteria None seen /hpf (None Seen) Urine Glucose Normal mg/dL (Normal) Blood Gas Results Test 02/10/25 00:55 Arterial Blood pH 7.467 (7.350-7.450) FiO2 % 100.0 Microbiology Microbiology Date/Time Source Procedure Growth Status 02/09/25 07:37 Blood Blood Culture - Preliminary NO GROWTH AFTER 24 HOURS OF INCUBATION. Resulted Labs and/or images reviewed: Labs reviewed by me Assessment/Plan Assessment/Plan Acute on chronic hypoxic respiratory failure, Sepsis, Pneumonia, probable secondary to Gram-positive/Gram-negative bacteria Anemia, Adult calorie protein malnutrition Acute kidney injury, Hyperkalemia, Leukocytosis, Febrile, COPD, with exacerbation Plan: Continuing current management Waiting for S bed, Continuing High flow oxygen, Continuing IV antibiotics, ceftriaxone 1 g IV q.day Continuing BiPAP as needed, Continuing IV steroids, Solu-Medrol Breathing treatments, with nebulizer q.6 PRN We will follow up with Sputum culture, and Blood cultures, Continuing with home medication This medical document was created using an electronic medical record system with [employer] direct computerized dictation system. Although this document has been carefully reviewed, there may still be some phonetic and typographical errors. These areas are purely typographical due to imperfections of the software programs, and do not reflect any compromise in the patient's medical care. Plan discussed with: Patient Date of Service: Feb 10, 2025 Billing Provider: ZORAIDA MALCOLM MD Common Visit Codes: [id number] INP/OBS CARE(HIGH) ZORAIDA MALCOLM MD Feb 10, 2025 10:16
[2025-02-10] MEDS: AZITHROMYCIN 500MG/ 250ML 250 ML IV SCH (10:42)
[2025-02-10] MEDS: FERROUS SULFATE 325mg EC TAB PO SCH (10:43)
[2025-02-10] MEDS: NICOTINE 21MG/24 HR TOPICAL PATCH TD SCH (10:48)
--- NOTE | 2025-02-10 18:56 | DVHINCON2 ---
Date Seen: Feb 10, [address] Ganesh Dee Reason for Consultation Acute hypoxic respiratory failure and pneumonia History of Present Illness A 64-year-old man with past medical history of COPD, oxygen dependent on 4 LPM, and hypertension who came to the hospital on 02/09/25 with complaint of shortness of breath. Patient states he woke up on the morning of presentation with severe shortness of breath. He states he was recently admitted at [facility] for pneumonia and sent home with antibiotics. He also had multiple blood transfusions and a bone marrow biopsy during that admission. Patient was admitted for further care. Pulmonary consultation is requested for evaluation and management of acute hypoxic respiratory failure and pneumonia. Review of Systems: 14-point review of systems negative unless otherwise noted above. Past Medical History: COPD oxygen dependent on 4 LPM, hypertension. Past Surgical History: Medications: Reviewed. Allergies: No known drug allergies. Family History: No family history of premature CAD. No family history of lung disorders. Social History: Smoker. Quit smoking (3 weeks ago) No alcohol or illicit drug use. Allergies: Coded Allergies: NO KNOWN ALLERGIES (Unverified , 02/01/20) Home Meds Reported Medications Hydrochlorothiazide (Hydrochlorothiazide) 25 Mg Tab, 25 MG PO DAILY for 30 Days, MG 02/11/25 Losartan Potassium (Losartan Potassium) 50 Mg Tab, 50 MG PO DAILY for 30 Days, MG 02/11/25 Amlodipine Besylate (Amlodipine Besylate) 10 Mg Tab, 10 MG PO DAILY, TAB 02/11/25 Ferrous Sulfate (Ferosul) 325 Mg Tab, 1 TAB PO DAILY 02/09/25 Nicotine (Nicotine Transdermal Syst) 21 Mg/24 Hr Dis, 1 PATCH TOP DAILY 02/09/25 Potassium Chloride (Klor-Con 10) 10 Meq Tab, 10 MEQ PO DAILY 02/09/25 Current Medications Current Medications Medications (Trade) Dose Ordered Sig/Raulito Route PRN Reason Start Time Stop Time Status Last Admin Azithromycin 250 ml @ 125 mls/hr DAILY IV 02/10/25 10:00 02/10/25 10:42 Ceftriaxone Sodium 50 ml @ 100 mls/hr DAILY@09 IV 02/10/25 09:00 02/10/25 09:17 Methylprednisolone Sodium Succinate (Solu Medrol) 40 mg BID IV 02/09/25 22:00 02/10/25 10:42 Nicotine (Nicoderm 21MG/ 24HR) 1 patch DAILY TD 02/10/25 10:00 02/10/25 10:48 Patient Own Medication 1 tab DAILY PO 02/10/25 10:00 UNV Ferrous Sulfate 325 mg DAILY PO 02/10/25 10:00 02/10/25 10:43 Vital Signs Vital Signs Date Time Temp Pulse Resp B/P (MAP) Pulse Ox O2 Delivery O2 Flow Rate FiO2 02/10/25 16:30 98.4 80 21 142/78 (99) 9 98.4 02/10/25 13:38 40.0 70 02/09/25 23:38 Nasal Cannula Physical Exam Gen.: Patient lying in bed in no apparent distress. On supplemental oxygen. Head: Normocephalic, atraumatic. Eyes: EOMI/PERRLA. Ears: Normal hearing. Normal anatomy. Neck/trachea: Trachea midline, supple. Nose: Normal external anatomy. Mouth: Moist mucous membranes. Chest: Decreased air entry bilaterally. No wheezing or rhonchi. Cardiovascular: Positive S1, positive S2. Regular rate and rhythm. Abdomen: Positive bowel sounds in all 4 quadrants. Soft, non-tender, non- distended. : Deferred. Rectal: Deferred. Skin: Warm, dry. Intact. Extremities: 2+ radial pulses bilaterally. No lower extremity edema. Neuro: Awake, alert, oriented x3. No gross motor or sensory deficits. Cranial nerves II through XII intact. Gait not assessed. Labs/Diagnostic Data Labs Test 02/10/25 04:05 02/10/25 00:55 02/10/25 00:23 02/09/25 09:06 Range/Units White Blood Count 33.5 *H 4.4-10.8 10^3/uL Red Blood Count 2.47 L 4.5-5.90 10^6/uL Hemoglobin 6.5 *L 13.5-17.5 g/dL Hematocrit 21.0 L 41.0-53.0 % Mean Corpuscular Volume 85.1 80.0-100.0 fL Mean Corpuscular Hemoglobin 26.4 L 28.0-32.0 pg Mean Corpuscular Hemoglobin Concent 31.0 L 32.0-36.0 g/dL Red Cell Distribution Width 26.8 H 11.8-14.3 % Platelet Count 66 L 140-450 10^3/uL Mean Platelet Volume 8.3 6.9-10.8 fL Neutrophils (%) (Auto) 37.0-80.0 % Lymphocytes (%) (Auto) 10.0-50.0 % Monocytes (%) (Auto) 0.0-12.0 % Basophils (%) (Auto) 0.0-2.0 % Neutrophils # (Auto) 1.6-8.6 10 ^3/uL Lymphocytes # (Auto) 0.4-5.4 10 ^3/uL Monocytes # (Auto) 0-1.3 10 ^3/uL Differential Total Cells Counted 100.0 100 Neutrophils % (Manual) 36 L 37.0-80.0 Band Neutrophils % (Manual) 18 Lymphocytes % (Manual) 9 L 10.0-50.0 Monocytes % (Manual) 24 H 0-12 Eosinophils % (Manual) 0 0-7 Basophils % (Manual) 0 0.0-2.0 Metamyelocytes % (manual) 2 Myelocytes % (Manual) 10 Promyelocytes % (Manual) 1 Blast Cells % (Manual) 0 Nucleated Red Blood Cells 4.0 % Reactive Lymphocytes 0 Platelet Estimate Decrea Large Platelets Few Sodium Level 137 136-145 mmol/L Potassium Level 5.4 H 3.5-5.1 mmol/L Chloride Level 109 H 98-107 mmol/L Carbon Dioxide Level 18 L 20-31 mmol/L Anion Gap 10 5-15 Blood Urea Nitrogen 37 H 9-23 mg/dL Creatinine 1.68 H 0.700-1.30 mg/dL Glomerular Filtration Rate Calc 45 >90 mL/min BUN/Creatinine Ratio 22.0 H 10.0-20.0 Serum Glucose 113 H 74-106 mg/dL Calcium Level 7.7 L 8.7-10.4 mg/dL Total Bilirubin 0.5 0.2-1.0 mg/dL Aspartate Amino Transferase (AST) 72 H 13-40 U/L Alanine Aminotransferase (ALT) 23 7-40 U/L Alkaline Phosphatase 138 H 46-116 U/L Total Protein 4.9 L 5.7-8.2 g/dL Albumin 3.0 L 3.2-4.8 g/dL Blood Gas Specimen Type Arterial Blood Gas Sample Site Left radial Blood Gas Patient Temperature 37.0 Arterial Blood Date Drawn [id number] Arterial Blood pH 7.467 H 7.350-7.450 Arterial Blood Partial Pressure CO2 26.0 L 35.0-48.0 mmHg Arterial Blood Partial Pressure O2 70.7 L 83.0-108.0 mmHg Arterial Blood HCO3 18.4 L 21.0-28.0 mmol/L Arterial Blood Oxygen Saturation 93.7 L 94.0-98.0 % Arterial Blood Base Excess -4.7 L -2.0-3.0 mmol/L Arterial Blood Oxyhemoglobin 92.0 L 94.0-98.0 % Arterial Blood Carboxyhemoglobin 0.4 L 0.5-1.5 % Arterial Blood Methemoglobin 1.4 0.0-1.5 % Terrance Test Yes Blood Gas Total Hemoglobin 7.30 L 13.5-17.5 g/dL Blood Gas Liter Flow 50.00 Blood Gas Modality High flow FiO2 % 100.0 Blood Gas Notified Time [id number] POC Glucose 108 H 70-106 mg/dl Blood Gas Critical Value Read Back Yes Blood Gas Notified Whom Petra rojas md Blood Gas Notified By Stuart kelley personnel supervisor Test 02/09/25 08:00 02/09/25 07:37 Range/Units Urine Color Light-yellow Yellow Urine Clarity Clear Clear Urine pH 7.0 5.0-9.0 Urine Specific [place] 1.014 1.001-1.035 Urine Protein 2+ H Negative Urine Ketones Negative Negative Urine Blood Negative Negative /uL Urine Nitrite Negative Negative Urine Bilirubin Negative Negative Urine Urobilinogen Normal Negative mg/dL Urine Leukocyte Esterase Negative Negative /uL Urine RBC <1 0 - 3 /hpf Urine Microscopic WBC 1 0-3 /HPF Urine Squamous Epithelial Cells Few <5 /hpf Urine Bacteria None seen None Seen /hpf Urine Glucose Normal Normal mg/dL Prothrombin Time 11.9 H 9.3-11.8 sec Prothrombin Time INR 1.14 0.9-1.15 Activated Partial Thromboplast Time 38.2 H 24.5-34.5 SEC Lactic Acid Level 1.5 0.4-2.0 mmol/L Microbiology Date/Time Source Procedure Growth Status 02/09/25 07:37 Blood Blood Culture - Preliminary NO GROWTH AFTER 24 HOURS OF INCUBATION. Resulted Assessment Impression: Acute hypoxic respiratory failure Pneumonia, likely gram negative Nicotine dependence Cachexia, BMI 17.5 Anemia, iron deficiency Leucocytosis Metabolic acidosis Hemoptysis Interstitial lung disease Plan: On high flow o2 FIO1 100% Keep o2 saturation above 92% ABG reviewed. Alkalosis 2/2 respiratory alkalosis. Initially hypoxemic on FIO2 60%. Improved to Pao2 70.7 on FIO2 100% Recommend NIPPV if remains hypoxic vs intubation. Monitor respiratory status closely. IV steroids Bronchodilators Continue abx Blood cultures: No growth after 24 hours. Monitor WBC Monitor hgb Iron supplementation. Antitussive PRN cough 1st dose now. Smoking cessation discussed greater than 10 minutes NRT Nutritional support DVT prophylaxis Prognosis: Poor given patient's multiple co-morbidities. Condition: Critical Rest of plan per hospitalist and other consultants. A total of 35 minutes of critical care time was spent reviewing the patient record, examining the patient, making a diagnostic and therapeutic plan, discussing this plan with the medical personnel, following up on diagnostic studies and following the patient for clinical stability excluding any and all procedures. At least 50% of this time was spent in direct, [id number] contact. Thank you, Dr. Dee, for allowing me to participate in this patient's care. Further recommendations will depend on the patient's clinical course. Please do not hesitate to contact me if you have any questions or concerns. This medical document was created using an electronic medical record system with [employer] dictation system. Although these documentations are being carefully reviewed, there may still be some phonetic and typographical changes. The errors are purely typographical, due to imperfection on the software program, and do not reflect any compromise in the patient's medical care Plan discussed with: Patient, Spouse, Other (GOKUL Cristobal) Date of Service: Feb 10, 2025 Billing Provider: JAQUAN PRUITT MD Common Visit Codes: [id number] INP/OBS CARE (HIGH), [id number] CARE 30- 74 MIN JAQUAN PRUITT MD Feb 10, 2025 18:56
[2025-02-10] MEDS: guaiFENesin-CODEINE Liq 5 ML UD PO STA (19:43)
[2025-02-10] MEDS: methylPREDNISolone SOD SUCC 40 MG/ML VL IV SCH (21:41)
[2025-02-10] MEDS: BUDESONIDE (INHALATION) 0.5 MG/2 ML NEB NEB SCH (22:00)
[2025-02-11] VITALS (24 sets, daily range): BP systolic 134–158; BP diastolic 71–84; PULSE 68–89; RESP 14–24; TEMP 97.7–98.3; O2SAT 93–100
[2025-02-11] MEDS ORDERED: HYDR25TA4 PO (06:22)
[2025-02-11] MEDS ORDERED: LOSA-534 PO (06:22)
[2025-02-11] MEDS ORDERED: AMLO1TAB23 PO (06:22)
[2025-02-11] MEDS ORDERED: VANCOMYCIN PER PHARMACY 0 MG IV SCH (09:30)
[2025-02-11 09:32] LABS: Hematocrit 24.4 % (41.0-53.0); Hemoglobin 7.8 g/dL (13.5-17.5)
--- NOTE | 2025-02-11 09:32 | DVHPN2 ---
Assessment/Plan Assessment/Plan ICU note 64 M with COPD, HTN, anemia rec tx, ex smoker, recent admission x2 in OSH with PNA / COPDe, admitted for same. previously discharged on po abx. Physical exam AOx4 comfortable in HFNC no JVD PERRLA MMM S1 S2 RRR no murmur b/l coarse rhonchi abdomen soft nontender no LE edema labs ekg imaging reviewed bone marrow from 01/21/25 hypocellular marrow, minimal fibrosis and fatty marrow replacement, no iron stores, mild reticulin fibrosis POCUS done 02/11 performed and interpreted by me trace pericardial effusion, preserved contractility, dilated IVC with >50% excur ruth on inspiration bline widespread could be inf vs overload, no PLEF assessment and plan acute on chronic hypoxic respiratory failure on HFNC sepsis COPD exacerbation PNA gp vs gn MDS vs marrow suppression microcytic anemia hyperkalemia TIM VMN on CKD s/p 1 unit PRBC ex smoker protein calorie malnutrition keep on step down maintain spo2 >92 maintain Hb >7 ipatropium and albuterol cefepime and vanc sputum culture MRSA, flu ab, covid swab steroid venofer x1 NRT trend cr, K diet cardiac dvt ppx lovenox prognosis poor condition critical full code crit care time 90 minutes acp 30 minutes, pt against intubation haja but will reconsider if required Plan discussed with: Patient My Orders Orders - MIRANDA TRAN MD Procedure Category Date Status Time Mrsa Screen JIMMY 02/11/25 Logged 08:44 Rapid Influenza A&B LAB 02/11/25 Logged 08:44 Covid19 Antigen Kay LAB 02/11/25 Logged B-Type Natriuretic LAB 02/11/25 In Process Peptide 08:44 Lactic Acid W/ Reflex LAB 02/11/25 In Process Order 08:44 Comprehensive LAB 02/11/25 In Process Metabolic Panel 08:44 Complete Blood Count LAB 02/11/25 In Process 08:44 Magnesium LAB 02/11/25 In Process 08:44 Cefepime 2gm Extended PHA 02/11/25 Transmitted Infusion 10:00 Vancomycin PHA 02/11/25 Transmitted 09:30 Date of Service: Feb 11, 2025 Billing Provider: MIRANDA TRAN MD Common Visit Codes: [id number] CARE 30-74 MIN, [id number]-[id number] CARE-EACH +30MIN Secondary Visit Codes: [id number] CARE PLAN 30 MINUTES MIRANDA TRAN MD Feb 11, 2025 09:32
[2025-02-11 09:34] LABS: Mean Corpuscular Hemoglobin 27.2 pg (28.0-32.0); Mean Corpuscular Volume 85.3 fL (80.0-100.0)
[2025-02-11 09:43] LABS: Alanine Aminotransferase 19 U/L (7-40); Anion Gap 12 (5-15)
[2025-02-11 09:48] LABS: BUN/Creatinine Ratio 33.8 (10.0-20.0); Magnesium 2.4 mg/dL (1.6-2.6)
[2025-02-11 09:50] LABS: Bilirubin, Total 0.3 mg/dL (0.2-1.0)
[2025-02-11 09:52] LABS: Albumin 3.1 g/dL (3.2-4.8); Alkaline Phosphatase 126 U/L (46-116); Blood Urea Nitrogen 50 mg/dL (9-23); Calcium 7.7 mg/dL (8.7-10.4); Carbon Dioxide 16 mmol/L (20-31); Chloride 108 mmol/L (98-107); Glucose 179 mg/dL (74-106); Potassium 5.4 mmol/L (3.5-5.1); Sodium 136 mmol/L (136-145); Total Protein 5.1 g/dL (5.7-8.2)
[2025-02-11] MEDS ORDERED: CEFEPIME 2GM/50ML NS 50 ML IV SCH (10:00)
[2025-02-11 10:06] LABS: Lactic Acid w/Reflex 2.3 mmol/L (0.4-2.0)
[2025-02-11] MEDS: CEFEPIME 2GM/50ML NS 50 ML IV ONE (10:51)
[2025-02-11] MEDS: FUROSEMIDE 20 MG/2 ML VIAL IV ONE (10:53)
[2025-02-11] MEDS: guaiFENesin-CODEINE Liq 5 ML UD PO PRN (10:57)
[2025-02-11 11:50] LABS: Nucleated Red Blood Cells % 4.0 %; Total Cells Counted 100.0 (100)
[2025-02-11 11:51] LABS: Anisocytosis Slight
[2025-02-11] MEDS: DOXYCYCLINE 100MG/100ML 100 ML IV SCH (12:11)
[2025-02-11] MEDS: VANCOMYCIN 1.25GM/250ML 250 ML IV ONE (13:28)
[2025-02-11 16:31] LABS: COVID19 ANTIGEN SOFIA FIA NEGATIVE (NEGATIVE)
[2025-02-11] MEDS: CEFEPIME 2GM/50ML NS 50 ML IV SCH (22:09)
[2025-02-12] VITALS (36 sets, daily range): BP systolic 144–162; BP diastolic 75–93; PULSE 68–93; RESP 12–27; TEMP 97.8–98.5; O2SAT 92–98
[2025-02-12] MEDS: BACLOFEN 10 MG TAB PO PRN (05:05)
[2025-02-12 05:39] LABS: Hemoglobin 7.1 g/dL (13.5-17.5)
[2025-02-12 05:43] LABS: Hematocrit 22.2 % (41.0-53.0); Mean Corpuscular Hemoglobin 27.5 pg (28.0-32.0); Mean Corpuscular Volume 85.8 fL (80.0-100.0)
[2025-02-12 05:52] LABS: Alanine Aminotransferase 25 U/L (7-40); Anion Gap 11 (5-15); BUN/Creatinine Ratio 36.1 (10.0-20.0); Bilirubin, Total 0.3 mg/dL (0.2-1.0); Magnesium 2.3 mg/dL (1.6-2.6)
[2025-02-12 05:55] LABS: Albumin 3.1 g/dL (3.2-4.8); Alkaline Phosphatase 127 U/L (46-116); Blood Urea Nitrogen 48 mg/dL (9-23); Calcium 7.8 mg/dL (8.7-10.4); Carbon Dioxide 17 mmol/L (20-31); Chloride 107 mmol/L (98-107); Glucose 158 mg/dL (74-106); Potassium 5.4 mmol/L (3.5-5.1); Sodium 135 mmol/L (136-145); Total Protein 5.0 g/dL (5.7-8.2)
--- NOTE | 2025-02-12 06:23 | DVH ---
CHEST RADIOGRAPH Indication: resp failure Technique: Single frontal view of the chest was obtained COMPARISON: XY CHEST PORTABLE on DOS: 02/09/25, XR CHEST 1 VIEW on DOS: 01/31/25, CT CHEST on DOS: 01/30, XR CHEST 1 VIEW on DOS: 01/30/25, XR CHEST 2 VIEWS on DOS: 01/25/25 FINDINGS: Lines and Tubes: None Lungs: Stable appearing diffuse interstitial opacities with slight interval clearing of right basilar opacity. Pleura: No effusion. No pneumothorax. Cardiomediastinal contours: Unremarkable Bones: Unremarkable IMPRESSION: 1. Stable appearing diffuse interstitial opacities with slight interval clearing of right basilar opa city.
[2025-02-12 06:34] LABS: Nucleated Red Blood Cells % 3.0 %; Total Cells Counted 100.0 (100)
[2025-02-12] MEDS: LOSARTAN POTASSIUM 50 MG TAB PO SCH (07:57)
[2025-02-12] MEDS: hydroCHLOROthiazide 25 MG TAB PO SCH (07:58)
--- NOTE | 2025-02-12 13:22 | DVHPN2 ---
Assessment/Plan Assessment/Plan ICU note 64 M with COPD, HTN, anemia rec tx, ex smoker, recent admission x2 in OSH with PNA / COPDe, admitted for same. previously discharged on po abx. seen today, on oximyzer Physical exam AOx4 comfortable in oximyzer no JVD PERRLA MMM S1 S2 RRR no murmur b/l coarse rhonchi abdomen soft nontender no LE edema labs ekg imaging reviewed bone marrow from 01/21/25 hypocellular marrow, minimal fibrosis and fatty marrow replacement, no iron stores, mild reticulin fibrosis POCUS done 02/11 performed and interpreted by me trace pericardial effusion, preserved contractility, dilated IVC with >50% excursion on inspiration bline widespread could be inf vs overload, no PLEF MRSA nares positive, flu covid neg assessment and plan acute on chronic hypoxic respiratory failure sepsis COPD exacerbation PNA gp vs gn MDS vs marrow suppression microcytic anemia hyperkalemia TIM VMN on CKD s/p 1 unit PRBC ex smoker protein calorie malnutrition pulm consult for bronch keep on step down maintain spo2 >92 maintain Hb >7 ipatropium and albuterol cefepime and vanc and doxy sputum culture steroid venofer x1 NRT trend cr, K hold losartan diet cardiac dvt ppx lovenox prognosis poor condition critical full code crit care time 35 minutes acp 30 minutes, pt against intubation haja but will reconsider if required Plan discussed with: Patient My Orders Orders - MIRANDA TRAN MD Procedure Category Date Status Time Chest Portable XY 02/12/25 Resulted 04:00 Date of Service: Feb 12, 2025 Billing Provider: MIRANDA TRAN MD Common Visit Codes: [id number] CARE 30-74 MIN MIRANDA TRAN MD Feb 12, 2025 13:22
[2025-02-12] MEDS: VANCOMYCIN 750MG KIT 100 ML IV SCH (15:27)
[2025-02-13] VITALS (33 sets, daily range): BP systolic 141–167; BP diastolic 63–89; PULSE 63–94; RESP 12–29; TEMP 97.7–98.4; O2SAT 87–97
[2025-02-13 04:23] LABS: Anion Gap 9 (5-15)
[2025-02-13 04:25] LABS: Calcium 8.1 mg/dL (8.7-10.4); Carbon Dioxide 18 mmol/L (20-31); Chloride 109 mmol/L (98-107); Potassium 5.2 mmol/L (3.5-5.1); Sodium 136 mmol/L (136-145)
[2025-02-13 04:28] LABS: BUN/Creatinine Ratio 34.7 (10.0-20.0)
[2025-02-13 04:29] LABS: Magnesium 2.0 mg/dL (1.6-2.6)
[2025-02-13 04:30] LABS: Blood Urea Nitrogen 42 mg/dL (9-23); Glucose 149 mg/dL (74-106)
[2025-02-13 05:05] LABS: Hematocrit 23.6 % (41.0-53.0); Hemoglobin 7.7 g/dL (13.5-17.5)
[2025-02-13 05:16] LABS: Mean Corpuscular Hemoglobin 27.8 pg (28.0-32.0); Mean Corpuscular Volume 85.1 fL (80.0-100.0)
[2025-02-13 07:50] LABS: Total Cells Counted 100.0 (100)
--- NOTE | 2025-02-13 12:48 | MEDREC ---
[facility] ASP Intervention Section I [facility] ASP Intervention: Review courses of therapy (MRSA SCREEN POSITIVE CONSIDER ADDING MUPIROCIN 2% OINTMENT 1 APPLICATION IN EACH NOSTRIL BID FOR 5 DAYS ) WILLARD ORTIZ PHARMACIST Feb 13, 2025 12:48
--- NOTE | 2025-02-13 16:11 | DVHPN2 ---
Assessment/Plan Assessment/Plan ICU note 64 M with COPD, HTN, anemia rec tx, ex smoker, recent admission x2 in OSH with PNA / COPDe, admitted for same. previously discharged on po abx. seen today, on 2 LNC, plan for bronch friday, c/w iv abx. stable to downgrade to tele Physical exam AOx4 comfortable in oximyzer no JVD PERRLA MMM S1 S2 RRR no murmur b/l coarse rhonchi abdomen soft nontender no LE edema labs ekg imaging reviewed bone marrow from 01/21/25 hypocellular marrow, minimal fibrosis and fatty marrow replacement, no iron stores, mild reticulin fibrosis POCUS done 02/11 performed and interpreted by me trace pericardial effusion, preserved contractility, dilated IVC with >50% excursion on inspiration bline widespread could be inf vs overload, no PLEF MRSA nares positive, flu covid neg assessment and plan acute on chronic hypoxic respiratory failure sepsis COPD exacerbation PNA gp vs gn MDS vs marrow suppression microcytic anemia hyperkalemia TIM VMN on CKD s/p 1 unit PRBC ex smoker protein calorie malnutrition pulm consult for bronch keep on step down maintain spo2 >92 maintain Hb >7 ipatropium and albuterol cefepime and vanc and doxy sputum culture steroid venofer x1 NRT trend cr, K hold losartan diet cardiac dvt ppx lovenox prognosis poor condition critical full code crit care time 35 minutes acp 30 minutes, pt against intubation haja but will reconsider if required Plan discussed with: Patient Date of Service: Feb 13, 2025 Billing Provider: MIRANDA TRAN MD Common Visit Codes: [id number] CARE 30-74 MIN MIRANDA TRAN MD Feb 13, 2025 16:11
[2025-02-13] MEDS: SODIUM ZIRCONIUM CYCL 10 GM PAK PO ONE (16:15)
--- NOTE | 2025-02-13 18:39 | DVHPN2 ---
Subjective DOS: 02/11/2025 Patient seen and examined at bedside. Remains on supplemental oxygen Overnight events reviewed. Reviewed: Care Plan, H&P, Labs, Medications, Previous Orders, Radiology Changes from previous H/P or p: No Changes Eyes: No Pain, No Vision change, No Conjunctivae inflammation, No Eyelid inflammation, No Other, No Redness ENT: No Ear pain, No Ear discharge, No Nose pain, No Nose discharge, No Nose congestion, No Mouth pain, No Mouth swelling, No Throat pain, No Throat swelling, No Other Cardiovascular: No Chest Pain, No Palpitations, No Orthopnea, No Paroxysmal Noc. Dyspnea, No Edema, No Lt Headedness, No Other Respiratory: No Cough, No Dry; Shortness of breath, SOB with excertion, W heezing; No Hemoptysis, No Pleuritic Pain, No Sputum, No Other Gastrointestinal: No Nausea, No Vomiting, No Abdominal Pain, No Diarrhea, No Constipation, No Melena, No Hematochezia, No Other Genitourinary: No Dysuria, No Frequency, No Incontinence, No Hematuria, No Retention, No Other Musculoskeletal: No other, No neck pain, No shoulder pain, No arm pain, No back pain, No hand pain, No leg pain, No foot pain Skin: No Rash, No Lesions, No Jaundice, No Bruising, No Other Objective Vitals Vital Signs Date Time Temp Pulse Resp B/P (MAP) Pulse Ox O2 Delivery O2 Flow Rate FiO2 02/13/25 17:34 18 95 Nasal Cannula* 3 32 02/13/25 17:00 75 149/79 (102) 02/13/25 16:00 97.8 97.8 Intake/Output Intake and Output 02/13/25 07:00 Intake Total 1387.5 ml Output Total 3575 ml Balance -2187.5 ml Intake Oral 1000 ml IV Total 387.5 ml Output Urine Total 3575 ml General Appearance: Alert, Cooperative HEENT: Atraumatic, PERRLA, EOMI, Mucous membr. moist/pink Neck: Supple Lungs: Clear to auscultation, Normal air movement Cardiovascular: Regular rate, Normal S1, Normal S2, No murmurs, Gallops, Rubs Abdomen: Normal bowel sounds, Soft, No tenderness Genitourinary: Tenderness Neuro: Cranial nerves 3-12 NL Psych/Mental Status: Mental status NL Medications Current Medications Medications Dose Ordered Sig/Raulito Route Start Time Stop Time Status Last Admin Dose Admin Albuterol 2.5 mg Q6HWA NEB 02/09/25 12:00 02/13/25 18:17 2.5 MG Ipratropium Brady 0.5 mg Q6HWA NEB 02/09/25 12:00 02/13/25 18:17 0.5 MG Acetaminophen/ Hydrocodone Bitart 1 tab Q4HP PRN PO 02/09/25 12:00 02/11/25 17:28 1 TAB Acetaminophen 650 mg Q6HP PRN PO 02/09/25 12:00 02/09/25 23:23 650 MG Morphine Sulfate 2 mg Q30M PRN IV 02/09/25 12:00 Nicotine 1 patch DAILY TD 02/10/25 10:00 02/11/25 10:53 1 PATCH Patient Own Medication 1 tab DAILY PO 02/10/25 10:00 UNV Ferrous Sulfate 325 mg DAILY PO 02/10/25 10:00 02/13/25 08:27 325 MG Guaifenesin/ Codeine Phosphate 10 ml Q4HPRN PRN PO 02/10/25 19:00 02/13/25 15:04 10 ML Methylprednisolone Sodium Succinate 40 mg Q6HR IV 02/11/25 00:00 02/13/25 17:13 40 MG Budesonide 0.5 mg BID NEB 02/10/25 22:00 02/13/25 18:17 0.5 MG Vancomycin HCl 0 ml @ 0 mls/hr UD IV 02/11/25 09:30 Cefepime HCl 50 ml @ 12.5 mls/hr Q12HR IV 02/11/25 22:00 02/13/25 08:25 12.5 MLS/HR Doxycycline Hyclate 100 ml @ 50 mls/hr Q12H IV 02/11/25 10:30 02/13/25 08:26 50 MLS/HR Baclofen 5 mg Q8HP PRN PO 02/11/25 18:00 02/13/25 05:20 5 MG Hydrochlorothiazide 25 mg DAILY PO 02/12/25 10:00 02/13/25 08:26 25 MG Amlodipine Besylate 10 mg DAILY PO 02/12/25 10:00 02/13/25 08:27 10 MG Vancomycin HCl 100 ml @ 100 mls/hr Q12H IV 02/12/25 16:00 02/13/25 15:20 100 MLS/HR Mupirocin 1 applic BID TOP 02/13/25 22:00 02/18/25 21:59 Laboratory Results Laboratory Tests 02/13/25 03:50 Chemistry Test 02/13/25 03:50 Calcium Level 8.1 mg/dL (8.7-10.4) L Magnesium Level 2.0 mg/dL (1.6-2.6) Urinalysis Test 02/09/25 08:00 Urine Color Light-yellow (Yellow) Urine Clarity Clear (Clear) Urine pH 7.0 (5.0-9.0) Urine Specific [place] 1.014 (1.001-1.035) Urine Protein 2+ (Negative) H Urine Ketones Negative (Negative) Urine Blood Negative /uL (Negative) Urine Nitrite Negative (Negative) Urine Bilirubin Negative (Negative) Urine Urobilinogen Normal mg/dL (Negative) Urine Leukocyte Esterase Negative /uL (Negative) Urine RBC <1 /hpf (0 - 3) Urine Microscopic WBC 1 /HPF (0-3) Urine Squamous Epithelial Cells Few /hpf (<5) Urine Bacteria None seen /hpf (None Seen) Urine Glucose Normal mg/dL (Normal) Microbiology Microbiology Date/Time Source Procedure Growth Status 02/11/25 06:55 Nose MRSA Screen - Final Methicillin Resistant S.aureus Complete 02/09/25 07:37 Blood Blood Culture - Preliminary NO GROWTH AFTER 72 HOURS OF INCUBATION. Resulted Assessment/Plan Assessment/Plan Impression: Acute hypoxic respiratory failure Pneumonia, likely gram negative Nicotine dependence Cachexia, BMI 17.5 Anemia, iron deficiency Leucocytosis Metabolic acidosis Events: Remains on high flow supplemental oxygen Improving O2 requirements Continue to taper O2 as tolerated Continue bronchodilators Continue antibiotics Antitussive PRN cough. Incentive spirometry Diurese as tolerated Monitor renal function Monitor electrolytes; supplement as necessary Labs and imaging reviewed. Rest of plan as noted below. Plan: On high flow o2 Keep o2 saturation above 92% ABG reviewed. Alkalosis 2/2 respiratory alkalosis. Initially hypoxemic on FIO2 60%. Improved to Pao2 70.7 on FIO2 100% Recommend NIPPV if remains hypoxic vs intubation. Monitor respiratory status closely. IV steroids Bronchodilators Continue abx Blood cultures: No growth after 48 hours. Monitor WBC Monitor hgb Iron supplementation. Antitussive PRN cough Smoking cessation discussed greater than 10 minutes NRT Nutritional support DVT prophylaxis Prognosis: Poor given patient's multiple co-morbidities. Condition: Critical Rest of plan per hospitalist and other consultants. A total of 35 minutes of critical care time was spent reviewing the patient record, examining the patient, making a diagnostic and therapeutic plan, discussing this plan with the medical personnel, following up on diagnostic studies and following the patient for clinical stability excluding any and all procedures. At least 50% of this time was spent in direct, [id number] contact. Thank you, Dr. Dee, for allowing me to participate in this patient's care. Further recommendations will depend on the patient's clinical course. Please do not hesitate to contact me if you have any questions or concerns. This medical document was created using an electronic medical record system with [employer] dictation system. Although these documentations are being carefully reviewed, there may still be some phonetic and typographical changes. The errors are purely typographical, due to imperfection on the software program, and do not reflect any compromise in the patient's medical care Plan discussed with: Patient, Other (RN) Date of Service: Feb 11, 2025 Billing Provider: JAQUAN PRUITT MD Common Visit Codes: [id number] INP/OBS CARE(HIGH), [id number] CARE 30-74 MIN JAQUAN PRUITT MD Feb 13, 2025 18:39
--- NOTE | 2025-02-13 21:50 | DVHPN2 ---
Subjective DOS: 02/12/2025 Patient seen and examined at bedside. Remains on supplemental oxygen Overnight events reviewed. Reviewed: Care Plan, H&P, Labs, Medications, Previous Orders, Radiology Changes from previous H/P or p: No Changes Eyes: No Pain, No Vision change, No Conjunctivae inflammation, No Eyelid inflammation, No Other, No Redness ENT: No Ear pain, No Ear discharge, No Nose pain, No Nose discharge, No Nose congestion, No Mouth pain, No Mouth swelling, No Throat pain, No Throat swelling, No Other Cardiovascular: No Chest Pain, No Palpitations, No Orthopnea, No Paroxysmal Noc. Dyspnea, No Edema, No Lt Headedness, No Other Respiratory: No Cough, No Dry; Shortness of breath, SOB with excertion, W heezing; No Hemoptysis, No Pleuritic Pain, No Sputum, No Other Gastrointestinal: No Nausea, No Vomiting, No Abdominal Pain, No Diarrhea, No Constipation, No Melena, No Hematochezia, No Other Genitourinary: No Dysuria, No Frequency, No Incontinence, No Hematuria, No Retention, No Other Musculoskeletal: No other, No neck pain, No shoulder pain, No arm pain, No back pain, No hand pain, No leg pain, No foot pain Skin: No Rash, No Lesions, No Jaundice, No Bruising, No Other Objective Vitals Vital Signs Date Time Temp Pulse Resp B/P (MAP) Pulse Ox O2 Delivery O2 Flow Rate FiO2 02/13/25 20:00 24 92 Nasal Cannula* 3 32 02/13/25 20:00 86 02/13/25 18:00 154/86 (108) 02/13/25 16:00 97.8 97.8 Intake/Output Intake and Output 02/13/25 07:00 Intake Total 1387.5 ml Output Total 3575 ml Balance -2187.5 ml Intake Oral 1000 ml IV Total 387.5 ml Output Urine Total 3575 ml General Appearance: Alert, Cooperative HEENT: Atraumatic, PERRLA, EOMI, Mucous membr. moist/pink Neck: Supple Lungs: Clear to auscultation, Normal air movement Cardiovascular: Regular rate, Normal S1, Normal S2, No murmurs, Gallops, Rubs Abdomen: Normal bowel sounds, Soft, No tenderness Genitourinary: Tenderness Neuro: Cranial nerves 3-12 NL Psych/Mental Status: Mental status NL Medications Current Medications Medications Dose Ordered Sig/Raulito Route Start Time Stop Time Status Last Admin Dose Admin Albuterol 2.5 mg Q6HWA NEB 02/09/25 12:00 02/13/25 18:17 2.5 MG Ipratropium [place] 0.5 mg Q6HWA NEB 02/09/25 12:00 02/13/25 18:17 0.5 MG Acetaminophen/ Hydrocodone Bitart 1 tab Q4HP PRN PO 02/09/25 12:00 02/11/25 17:28 1 TAB Acetaminophen 650 mg Q6HP PRN PO 02/09/25 12:00 02/09/25 23:23 650 MG Morphine Sulfate 2 mg Q30M PRN IV 02/09/25 12:00 Nicotine 1 patch DAILY TD 02/10/25 10:00 02/11/25 10:53 1 PATCH Patient Own Medication 1 tab DAILY PO 02/10/25 10:00 UNV Ferrous Sulfate 325 mg DAILY PO 02/10/25 10:00 02/13/25 08:27 325 MG Guaifenesin/ Codeine Phosphate 10 ml Q4HPRN PRN PO 02/10/25 19:00 02/13/25 15:04 10 ML Methylprednisolone Sodium Succinate 40 mg Q6HR IV 02/11/25 00:00 02/13/25 17:13 40 MG Budesonide 0.5 mg BID NEB 02/10/25 22:00 02/13/25 18:17 0.5 MG Vancomycin HCl 0 ml @ 0 mls/hr UD IV 02/11/25 09:30 Cefepime HCl 50 ml @ 12.5 mls/hr Q12HR IV 02/11/25 22:00 02/13/25 08:25 12.5 MLS/HR Doxycycline Hyclate 100 ml @ 50 mls/hr Q12H IV 02/11/25 10:30 02/13/25 08:26 50 MLS/HR Baclofen 5 mg Q8HP PRN PO 02/11/25 18:00 02/13/25 05:20 5 MG Hydrochlorothiazide 25 mg DAILY PO 02/12/25 10:00 02/13/25 08:26 25 MG Amlodipine Besylate 10 mg DAILY PO 02/12/25 10:00 02/13/25 08:27 10 MG Vancomycin HCl 100 ml @ 100 mls/hr Q12H IV 02/12/25 16:00 02/13/25 15:20 100 MLS/HR Mupirocin 1 applic BID TOP 02/13/25 22:00 02/18/25 21:59 Laboratory Results Laboratory Tests 02/13/25 03:50 Chemistry Test 02/13/25 03:50 Calcium Level 8.1 mg/dL (8.7-10.4) L Magnesium Level 2.0 mg/dL (1.6-2.6) Urinalysis Test 02/09/25 08:00 Urine Color Light-yellow (Yellow) Urine Clarity Clear (Clear) Urine pH 7.0 (5.0-9.0) Urine Specific [place] 1.014 (1.001-1.035) Urine Protein 2+ (Negative) H Urine Ketones Negative (Negative) Urine Blood Negative /uL (Negative) Urine Nitrite Negative (Negative) Urine Bilirubin Negative (Negative) Urine Urobilinogen Normal mg/dL (Negative) Urine Leukocyte Esterase Negative /uL (Negative) Urine RBC <1 /hpf (0 - 3) Urine Microscopic WBC 1 /HPF (0-3) Urine Squamous Epithelial Cells Few /hpf (<5) Urine Bacteria None seen /hpf (None Seen) Urine Glucose Normal mg/dL (Normal) Microbiology Microbiology Date/Time Source Procedure Growth Status 02/11/25 06:55 Nose MRSA Screen - Final Methicillin Resistant S.aureus Complete 02/09/25 07:37 Blood Blood Culture - Preliminary NO GROWTH AFTER 72 HOURS OF INCUBATION. Resulted Assessment/Plan Assessment/Plan Impression: Acute hypoxic respiratory failure Pneumonia, likely gram negative Nicotine dependence Cachexia, BMI 17.5 Anemia, iron deficiency Leucocytosis Metabolic acidosis Events: Currently on supplemental oxygen, 3 LPM [place] Improved O2 requirements, transitioned off high flow Continue to taper O2 as tolerated Continue bronchodilators Continue antibiotics Antitussive PRN cough. Incentive spirometry CXR demonstrates slight improvement of right basilar opacity. Diurese as tolerated Monitor renal function Monitor electrolytes; supplement as necessary Labs and imaging reviewed. Rest of plan as noted below. Plan: Supplemental oxygen Keep o2 saturation above 92% Improved oxygen requirements IV steroids Bronchodilators Continue abx Blood cultures: No growth after 72 hours. Monitor WBC Monitor hgb Iron supplementation. Antitussive PRN cough Smoking cessation discussed greater than 10 minutes NRT Nutritional support DVT prophylaxis Prognosis: Poor given patient's multiple co-morbidities. Condition: Critical Rest of plan per hospitalist and other consultants. A total of 35 minutes of critical care time was spent reviewing the patient record, examining the patient, making a diagnostic and therapeutic plan, discussing this plan with the medical personnel, following up on diagnostic studies and following the patient for clinical stability excluding any and all procedures. At least 50% of this time was spent in direct, [id number] contact. Thank you, Dr. Dee, for allowing me to participate in this patient's care. Further recommendations will depend on the patient's clinical course. Please do not hesitate to contact me if you have any questions or concerns. This medical document was created using an electronic medical record system with [employer] computerized dictation system. Although these documentations are being carefully reviewed, there may still be some phonetic and typographical changes. The errors are purely typographical, due to imperfection on the software program, and do not reflect any compromise in the patient's medical care Plan discussed with: Patient, Other (RN) Date of Service: Feb 12, 2025 Billing Provider: JAQUAN PRUITT MD Common Visit Codes: [id number] INP/OBS CARE(HIGH), [id number] CARE 30-74 MIN JAQUAN PRUITT MD Feb 13, 2025 21:50
[2025-02-13] MEDS: MUPIROCIN 2% OINT 15gm or 22gm FOR MRSA NARES TOP SCH (22:00)
--- NOTE | 2025-02-13 23:14 | DVHPN2 ---
Subjective DOS: 02/13/2025 Patient seen and examined at bedside. Remains on supplemental oxygen Overnight events reviewed. Reviewed: Care Plan, H&P, Labs, Medications, Previous Orders, Radiology Changes from previous H/P or p: No Changes Eyes: No Pain, No Vision change, No Conjunctivae inflammation, No Eyelid inflammation, No Other, No Redness ENT: No Ear pain, No Ear discharge, No Nose pain, No Nose discharge, No Nose congestion, No Mouth pain, No Mouth swelling, No Throat pain, No Throat swelling, No Other Cardiovascular: No Chest Pain, No Palpitations, No Orthopnea, No Paroxysmal Noc. Dyspnea, No Edema, No Lt Headedness, No Other Respiratory: No Cough, No Dry; Shortness of breath, SOB with excertion, W heezing; No Hemoptysis, No Pleuritic Pain, No Sputum, No Other Gastrointestinal: No Nausea, No Vomiting, No Abdominal Pain, No Diarrhea, No Constipation, No Melena, No Hematochezia, No Other Genitourinary: No Dysuria, No Frequency, No Incontinence, No Hematuria, No Retention, No Other Musculoskeletal: No other, No neck pain, No shoulder pain, No arm pain, No back pain, No hand pain, No leg pain, No foot pain Skin: No Rash, No Lesions, No Jaundice, No Bruising, No Other Objective Vitals Vital Signs Date Time Temp Pulse Resp B/P (MAP) Pulse Ox O2 Delivery O2 Flow Rate FiO2 02/13/25 20:00 24 92 Nasal Cannula* 3 32 02/13/25 20:00 86 02/13/25 18:00 154/86 (108) 02/13/25 16:00 97.8 97.8 Intake/Output Intake and Output 02/13/25 07:00 Intake Total 1387.5 ml Output Total 3575 ml Balance -2187.5 ml Intake Oral 1000 ml IV Total 387.5 ml Output Urine Total 3575 ml General Appearance: Alert, Cooperative HEENT: Atraumatic, PERRLA, EOMI, Mucous membr. moist/pink Neck: Supple Lungs: Clear to auscultation, Normal air movement Cardiovascular: Regular rate, Normal S1, Normal S2, No murmurs, Gallops, Rubs Abdomen: Normal bowel sounds, Soft, No tenderness Genitourinary: Tenderness Neuro: Cranial nerves 3-12 NL Psych/Mental Status: Mental status NL Medications Current Medications Medications Dose Ordered Sig/Raulito Route Start Time Stop Time Status Last Admin Dose Admin Albuterol 2.5 mg Q6HWA NEB 02/09/25 12:00 02/13/25 18:17 2.5 MG Ipratropium [place] 0.5 mg Q6HWA NEB 02/09/25 12:00 02/13/25 18:17 0.5 MG Acetaminophen/ Hydrocodone Bitart 1 tab Q4HP PRN PO 02/09/25 12:00 02/11/25 17:28 1 TAB Acetaminophen 650 mg Q6HP PRN PO 02/09/25 12:00 02/09/25 23:23 650 MG Morphine Sulfate 2 mg Q30M PRN IV 02/09/25 12:00 Nicotine 1 patch DAILY TD 02/10/25 10:00 02/11/25 10:53 1 PATCH Patient Own Medication 1 tab DAILY PO 02/10/25 10:00 UNV Ferrous Sulfate 325 mg DAILY PO 02/10/25 10:00 02/13/25 08:27 325 MG Guaifenesin/ Codeine Phosphate 10 ml Q4HPRN PRN PO 02/10/25 19:00 02/13/25 15:04 10 ML Methylprednisolone Sodium Succinate 40 mg Q6HR IV 02/11/25 00:00 02/13/25 17:13 40 MG Budesonide 0.5 mg BID NEB 02/10/25 22:00 02/13/25 18:17 0.5 MG Vancomycin HCl 0 ml @ 0 mls/hr UD IV 02/11/25 09:30 Cefepime HCl 50 ml @ 12.5 mls/hr Q12HR IV 02/11/25 22:00 02/13/25 22:31 12.5 MLS/HR Doxycycline Hyclate 100 ml @ 50 mls/hr Q12H IV 02/11/25 10:30 02/13/25 22:35 50 MLS/HR Baclofen 5 mg Q8HP PRN PO 02/11/25 18:00 02/13/25 05:20 5 MG Hydrochlorothiazide 25 mg DAILY PO 02/12/25 10:00 02/13/25 08:26 25 MG Amlodipine Besylate 10 mg DAILY PO 02/12/25 10:00 02/13/25 08:27 10 MG Vancomycin HCl 100 ml @ 100 mls/hr Q12H IV 02/12/25 16:00 02/13/25 15:20 100 MLS/HR Mupirocin 1 applic BID TOP 02/13/25 22:00 02/18/25 21:59 02/13/25 22:00 1 APPLIC Laboratory Results Laboratory Tests 02/13/25 03:50 Chemistry Test 02/13/25 03:50 Calcium Level 8.1 mg/dL (8.7-10.4) L Magnesium Level 2.0 mg/dL (1.6-2.6) Urinalysis Test 02/09/25 08:00 Urine Color Light-yellow (Yellow) Urine Clarity Clear (Clear) Urine pH 7.0 (5.0-9.0) Urine Specific [place] 1.014 (1.001-1.035) Urine Protein 2+ (Negative) H Urine Ketones Negative (Negative) Urine Blood Negative /uL (Negative) Urine Nitrite Negative (Negative) Urine Bilirubin Negative (Negative) Urine Urobilinogen Normal mg/dL (Negative) Urine Leukocyte Esterase Negative /uL (Negative) Urine RBC <1 /hpf (0 - 3) Urine Microscopic WBC 1 /HPF (0-3) Urine Squamous Epithelial Cells Few /hpf (<5) Urine Bacteria None seen /hpf (None Seen) Urine Glucose Normal mg/dL (Normal) Microbiology Microbiology Date/Time Source Procedure Growth Status 02/11/25 06:55 Nose MRSA Screen - Final Methicillin Resistant S.aureus Complete 02/09/25 07:37 Blood Blood Culture - Preliminary NO GROWTH AFTER 72 HOURS OF INCUBATION. Resulted Assessment/Plan Assessment/Plan Impression: Acute hypoxic respiratory failure Pneumonia, likely gram negative Nicotine dependence Cachexia, BMI 17.5 Anemia, iron deficiency Leucocytosis Metabolic acidosis Events: Remains on supplemental oxygen, 3 LPM NC Improved O2 requirements, transitioned off high flow Continue to taper O2 as tolerated Continue bronchodilators Continue antibiotics Continue steroids; taper as tolerated Antitussive PRN cough. Incentive spirometry CXR demonstrates slight improvement of right basilar opacity. Diurese as tolerated Monitor renal function Monitor electrolytes; supplement as necessary Labs and imaging reviewed. Rest of plan as noted below. Plan: Supplemental oxygen Keep o2 saturation above 92% Improved oxygen requirements IV steroids Bronchodilators Continue abx Blood cultures: No growth after 72 hours. Monitor WBC Monitor hgb Iron supplementation. Antitussive PRN cough Smoking cessation discussed greater than 10 minutes NRT Nutritional support DVT prophylaxis Prognosis: Poor given patient's multiple co-morbidities. Condition: Critical Rest of plan per hospitalist and other consultants. A total of 35 minutes of critical care time was spent reviewing the patient record, examining the patient, making a diagnostic and therapeutic plan, discussing this plan with the medical personnel, following up on diagnostic studies and following the patient for clinical stability excluding any and all procedures. At least 50% of this time was spent in direct, [id number] contact. Thank you, Dr. Dee, for allowing me to participate in this patient's care. Further recommendations will depend on the patient's clinical course. Please do not hesitate to contact me if you have any questions or concerns. This medical document was created using an electronic medical record system with [employer] dictation system. Although these documentations are being carefully reviewed, there may still be some phonetic and typographical changes. The errors are purely typographical, due to imperfection on the software program, and do not reflect any compromise in the patient's medical care Plan discussed with: Other (GOKUL Spear) Date of Service: Feb 13, 2025 Billing Provider: JAQUAN PRUITT MD Common Visit Codes: [id number] INP/OBS CARE(HIGH) JAQUAN PRUITT MD Feb 13, 2025 23:14
[2025-02-14] VITALS (17 sets, daily range): BP systolic 131–162; BP diastolic 81–94; PULSE 60–98; RESP 14–24; TEMP 97.2–98.6; O2SAT 92–100
[2025-02-14 03:40] LABS: Hemoglobin 8.3 g/dL (13.5-17.5)
[2025-02-14 03:42] LABS: Hematocrit 26.0 % (41.0-53.0); Mean Corpuscular Hemoglobin 27.3 pg (28.0-32.0); Mean Corpuscular Volume 85.7 fL (80.0-100.0)
[2025-02-14 03:51] LABS: Anion Gap 12 (5-15); Potassium 5.0 mmol/L (3.5-5.1); Sodium 137 mmol/L (136-145)
[2025-02-14 03:57] LABS: BUN/Creatinine Ratio 39.2 (10.0-20.0)
[2025-02-14 04:02] LABS: Blood Urea Nitrogen 51 mg/dL (9-23); Calcium 8.0 mg/dL (8.7-10.4); Carbon Dioxide 17 mmol/L (20-31); Chloride 108 mmol/L (98-107); Glucose 133 mg/dL (74-106)
[2025-02-14 05:17] LABS: Nucleated Red Blood Cells % 3.0 %; Total Cells Counted 100.0 (100)
--- NOTE | 2025-02-14 10:50 | DVHPN2 ---
Assessment/Plan Assessment/Plan progress note 64 M with COPD, HTN, anemia rec tx, ex smoker, recent admission x2 in OSH with PNA / COPDe, admitted for same. previously discharged on po abx. seen today, plan for bronch tomorrow, c/w abx. starting lsoartan on lower dose Physical exam AOx4 comfortable in NC no JVD PERRLA MMM S1 S2 RRR no murmur b/l coarse rhonchi abdomen soft nontender no LE edema labs ekg imaging reviewed bone marrow from 01/21/25 hypocellular marrow, minimal fibrosis and fatty marrow replacement, no iron stores, mild reticulin fibrosis POCUS done 02/11 performed and interpreted by me trace pericardial effusion, preserved contractility, dilated IVC with >50% excursion on inspiration bline widespread could be inf vs overload, no PLEF MRSA nares positive, flu covid neg assessment and plan acute on chronic hypoxic respiratory failure sepsis COPD exacerbation PNA gp vs gn MDS vs marrow suppression microcytic anemia hyperkalemia TIM VMN on CKD s/p 1 unit PRBC ex smoker protein calorie malnutrition pulm consult for bronch hyperK keep on step down maintain spo2 >92 maintain Hb >7 ipatropium and albuterol cefepime and vanc and doxy sputum culture steroid holding venofer NRT trend cr, K restarting losartan diet cardiac dvt ppx lovenox prognosis poor condition critical full code acp 30 minutes, pt against intubation haja but will reconsider if required Plan discussed with: Patient My Orders Orders - MIRANDA TRAN MD Procedure Category Date Status Time Transfer Orders XFER 02/13/25 Transmitted 16:11 Mupirocin 2% Oint PHA 02/13/25 In Process Mrsa Nares (Bactroban 22:00 Vancomycin Per AJNE 02/14/25 In Process Pharmacy Protoc 16:00 Vancomycin,Trough LAB 02/16/25 Verified 03:00 Creatinine LAB 02/15/25 Verified 04:00 Losartan Tablet PHA 02/14/25 Logged (Cozaar Tablet) 10:45 Losartan Tablet PHA 02/15/25 Logged (Cozaar Tablet) 10:00 Basic Metabolic Panel LAB 02/15/25 Verified 04:00 Complete Blood Count LAB 02/15/25 Verified 04:00 Date of Service: Feb 14, 2025 Billing Provider: MIRANDA TRAN MD Common Visit Codes: [id number] INP/OBS CARE(HIGH) MIRANDA TRAN MD Feb 14, 2025 10:50
[2025-02-14] MEDS: LOSARTAN POTASSIUM 25 MG TAB PO ONE (12:08)
--- NOTE | 2025-02-14 22:35 | DVHPN2 ---
Subjective DOS: 02/14/2025 Patient seen and examined at bedside. Remains on supplemental oxygen Overnight events reviewed. Reviewed: Care Plan, H&P, Labs, Medications, Previous Orders, Radiology Changes from previous H/P or p: No Changes Eyes: No Pain, No Vision change, No Conjunctivae inflammation, No Eyelid inflammation, No Other, No Redness ENT: No Ear pain, No Ear discharge, No Nose pain, No Nose discharge, No Nose congestion, No Mouth pain, No Mouth swelling, No Throat pain, No Throat swelling, No Other Cardiovascular: No Chest Pain, No Palpitations, No Orthopnea, No Paroxysmal Noc. Dyspnea, No Edema, No Lt Headedness, No Other Respiratory: No Cough, No Dry; Shortness of breath, SOB with excertion, W heezing; No Hemoptysis, No Pleuritic Pain, No Sputum, No Other Gastrointestinal: No Nausea, No Vomiting, No Abdominal Pain, No Diarrhea, No Constipation, No Melena, No Hematochezia, No Other Genitourinary: No Dysuria, No Frequency, No Incontinence, No Hematuria, No Retention, No Other Musculoskeletal: No other, No neck pain, No shoulder pain, No arm pain, No back pain, No hand pain, No leg pain, No foot pain Skin: No Rash, No Lesions, No Jaundice, No Bruising, No Other Objective Vitals Vital Signs Date Time Temp Pulse Resp B/P (MAP) Pulse Ox O2 Delivery O2 Flow Rate FiO2 02/14/25 21:00 97.6 83 19 147/84 (105) 93 97.6 02/14/25 20:00 Nasal Cannula* 3 32 Intake/Output Intake and Output 02/14/25 07:00 Intake Total 2567.5 ml Output Total 2500 ml Balance 67.5 ml Intake Oral 2230 ml IV Total 337.5 ml Output Urine Total 2500 ml # Bowel Movements 2 General Appearance: Alert, Cooperative HEENT: Atraumatic, PERRLA, EOMI, Mucous membr. moist/pink Neck: Supple Lungs: Clear to auscultation, Normal air movement Cardiovascular: Regular rate, Normal S1, Normal S2, No murmurs, Gallops, Rubs Abdomen: Normal bowel sounds, Soft, No tenderness Genitourinary: Tenderness Neuro: Cranial nerves 3-12 NL Psych/Mental Status: Mental status NL Medications Current Medications Medications Dose Ordered Sig/Raulito Route Start Time Stop Time Status Last Admin Dose Admin Albuterol 2.5 mg Q6HWA [facility] 02/09/25 12:00 02/14/25 19:40 2.5 MG Ipratropium [place] 0.5 mg Q6HWA NEB 02/09/25 12:00 02/14/25 19:40 0.5 MG Acetaminophen/ Hydrocodone Bitart 1 tab Q4HP PRN PO 02/09/25 12:00 02/11/25 17:28 1 TAB Acetaminophen 650 mg Q6HP PRN PO 02/09/25 12:00 02/09/25 23:23 650 MG Morphine Sulfate 2 mg Q30M PRN IV 02/09/25 12:00 Nicotine 1 patch DAILY TD 02/10/25 10:00 02/11/25 10:53 1 PATCH Patient Own Medication 1 tab DAILY PO 02/10/25 10:00 UNV Ferrous Sulfate 325 mg DAILY PO 02/10/25 10:00 02/14/25 09:31 325 MG Guaifenesin/ Codeine Phosphate 10 ml Q4HPRN PRN PO 02/10/25 19:00 02/14/25 22:07 10 ML Methylprednisolone Sodium Succinate 40 mg Q6HR IV 02/11/25 00:00 02/14/25 17:00 40 MG Budesonide 0.5 mg BID NEB 02/10/25 22:00 02/14/25 19:41 0.5 MG Vancomycin HCl 0 ml @ 0 mls/hr UD IV 02/11/25 09:30 Cefepime HCl 50 ml @ 12.5 mls/hr Q12HR IV 02/11/25 22:00 02/14/25 22:07 12.5 MLS/HR Doxycycline Hyclate 100 ml @ 50 mls/hr Q12H IV 02/11/25 10:30 02/14/25 22:07 50 MLS/HR Baclofen 5 mg Q8HP PRN PO 02/11/25 18:00 02/13/25 05:20 5 MG Hydrochlorothiazide 25 mg DAILY PO 02/12/25 10:00 02/14/25 09:32 25 MG Amlodipine Besylate 10 mg DAILY PO 02/12/25 10:00 02/14/25 09:31 10 MG Vancomycin HCl 100 ml @ 100 mls/hr Q12H IV 02/12/25 16:00 02/14/25 17:00 100 MLS/HR Mupirocin 1 applic BID TOP 02/13/25 22:00 02/18/25 21:59 02/14/25 22:08 1 APPLIC Losartan Potassium 25 mg DAILY PO 02/15/25 10:00 Laboratory Results Laboratory Tests 02/14/25 03:10 Chemistry Test 02/14/25 03:10 Calcium Level 8.0 mg/dL (8.7-10.4) L Urinalysis Test 02/09/25 08:00 Urine Color Light-yellow (Yellow) Urine Clarity Clear (Clear) Urine pH 7.0 (5.0-9.0) Urine Specific [place] 1.014 (1.001-1.035) Urine Protein 2+ (Negative) H Urine Ketones Negative (Negative) Urine Blood Negative /uL (Negative) Urine Nitrite Negative (Negative) Urine Bilirubin Negative (Negative) Urine Urobilinogen Normal mg/dL (Negative) Urine Leukocyte Esterase Negative /uL (Negative) Urine RBC <1 /hpf (0 - 3) Urine Microscopic WBC 1 /HPF (0-3) Urine Squamous Epithelial Cells Few /hpf (<5) Urine Bacteria None seen /hpf (None Seen) Urine Glucose Normal mg/dL (Normal) Microbiology Microbiology Date/Time Source Procedure Growth Status 02/11/25 06:55 Nose MRSA Screen - Final Methicillin Resistant S.aureus Complete 02/09/25 07:37 Blood Blood Culture - Final NO GROWTH AFTER 5 DAYS OF INCUBATION. Complete Assessment/Plan Assessment/Plan Impression: Acute hypoxic respiratory failure Pneumonia, likely gram negative Nicotine dependence Cachexia, BMI 17.5 Anemia, iron deficiency Leucocytosis Metabolic acidosis Events: Remains on supplemental oxygen, 2 LPM [place] Improved O2 requirements Continue to taper O2 as tolerated Plan for bronchoscopy in the AM. Patient to be NPO at midnight Continue bronchodilators Continue antibiotics Continue steroids; taper as tolerated Antitussive PRN cough. Incentive spirometry Diurese as tolerated Monitor renal function Monitor electrolytes; supplement as necessary Labs and imaging reviewed. Rest of plan as noted below. Plan: Supplemental oxygen Keep o2 saturation above 92% Improved oxygen requirements IV steroids Bronchodilators Continue abx Blood cultures: No growth thus far. Monitor WBC Monitor hgb Iron supplementation. Antitussive PRN cough Smoking cessation discussed greater than 10 minutes NRT Nutritional support DVT prophylaxis Prognosis: Poor given patient's multiple co-morbidities. Rest of plan per hospitalist and other consultants. Thank you, Dr. Dee, for allowing me to participate in this patient's care. Further recommendations will depend on the patient's clinical course. Please do not hesitate to contact me if you have any questions or concerns. This medical document was created using an electronic medical record system with [employer] dictation system. Although these documentations are being carefully reviewed, there may still be some phonetic and typographical changes. The errors are purely typographical, due to imperfection on the software program, and do not reflect any compromise in the patient's medical care Plan discussed with: Other (GOKUL Stone) Date of Service: Feb 14, 2025 Billing Provider: JAQUAN PRUITT MD Common Visit Codes: [id number] INP/OBS CARE(HIGH) JAQUAN PRUITT MD Feb 14, 2025 22:35
[2025-02-15] VITALS (19 sets, daily range): BP systolic 125–163; BP diastolic 65–93; PULSE 64–106; RESP 14–20; TEMP 97.5–98.8; O2SAT 91–100
[2025-02-15 05:30] LABS: Hematocrit 21.5 % (41.0-53.0); Hemoglobin 7.1 g/dL (13.5-17.5)
[2025-02-15 05:33] LABS: Mean Corpuscular Hemoglobin 28.0 pg (28.0-32.0); Mean Corpuscular Volume 85.0 fL (80.0-100.0)
[2025-02-15 05:38] LABS: Sodium 138 mmol/L (136-145)
[2025-02-15 05:39] LABS: Anion Gap 8 (5-15); Chloride 110 mmol/L (98-107); Potassium 5.2 mmol/L (3.5-5.1)
[2025-02-15 05:45] LABS: BUN/Creatinine Ratio 33.3 (10.0-20.0)
[2025-02-15 05:59] LABS: Blood Urea Nitrogen 42 mg/dL (9-23); Calcium 8.0 mg/dL (8.7-10.4); Carbon Dioxide 20 mmol/L (20-31); Glucose 147 mg/dL (74-106)
[2025-02-15 06:51] LABS: Anisocytosis Slight; Nucleated Red Blood Cells % 2.0 %; Total Cells Counted 100.0 (100)
[2025-02-15] MEDS ORDERED: SODIUM CHLORIDE LOCK 10 ML ONE (07:41)
[2025-02-15] MEDS: MIDAZOLAM HCL 5 MG/ML-1ML VIAL ONE (10:05)
[2025-02-15] MEDS: GLYCOPYRROLATE 0.2 MG/ML 1ML VIAL ONE (10:05)
[2025-02-15] MEDS: diphenhdrAMINE HCL 50 MG/1 ML VL ONE (10:05)
[2025-02-15] MEDS: fentaNYL CITRATE 100 MCG/2 ML VL ONE (10:05)
--- NOTE | 2025-02-15 11:26 | DVH ---
CHEST RADIOGRAPH Indication: POST PROCEDURE Technique: Single frontal view of the chest was obtained Comparison: XY CHEST PORTABLE on DOS: 02/12/25, XY CHEST PORTABLE on DOS: 02/09/25, XR CHEST 1 VIEW on DOS: 01/31/25, XR CHEST 1 VIEW on DOS: 01/30/25, XR CHEST 2 VIEWS on DOS: 01/25/25, XY CHEST PORTABLE on DOS: 02/12/25 FINDINGS: Lines and Tubes: None Lungs: Stable appearing diffuse interstitial opacities with slight interval clearing of right basilar opacity. Pleura: No effusion. No pneumothorax. Cardiomediastinal contours: Unremarkable Bones: Unremarkable IMPRESSION: 1. Stable appearing diffuse interstitial opacities with slight interval clearing of right basilar opa city.
[2025-02-15] MEDS: LOSARTAN POTASSIUM 25 MG TAB PO SCH (12:23)
--- NOTE | 2025-02-15 12:25 | DVHNC2 ---
Procedure - Bronchoscopy procedure note: Indications: Interstitial lung disease changes, Possible mucous plugging. Medicines: See driver medic notes. Complications: None Procedure: Patient medications and allergies reviewed. The risks and benefits of the procedure and the sedation options and risk were discussed with the patient and patient's healthcare proxy. All questions were answered and informed consent was obtained. Patient identification and proposed procedure were verified prior to the procedure by the physician, and a nurse, and the respiratory therapist in Endoscopy room. The heart rate, respiratory rate, oxygen saturations, blood pressure, adequacy of pulmonary ventilation, and response to care were monitored throughout the procedure. The physical status of the patient was reassessed after the procedure. After obtaining informed consent, the bronchoscope was introduced through the endotracheal tube and advanced into the trachea bronchial tree of both lungs. The procedure was accomplished without difficulty. The patient tolerated the procedure well. Findings: The trachea is in normal caliber. The tian is sharp. The tracheobronchial tree of the right lung was examined to at least the first subsegmental level. The bronchial mucosa and anatomy in the right lung are normal. There are no endobronchial lesions. There was copious brownish secretions from right main stem bronchus onward throughout R1-R10. Right middle lobe (RML) Bronchoalveolar lavage (BAL) obtained. RML BAL sent for gram stain and culture, viral culture, fungal culture, and AFB smear and culture. The left upper lobe, lingula, and left lower lobe were examined to at least the first subsegmental level. Bronchial mucosa and anatomy in the left upper lobe and lingula are normal. There were no endobronchial lesions. There was copious brownish secretions from left main stem bronchus onward throughout L1-L10. Mucous plugging removed from L1-L10. There was no active bleeding at the completion of the procedure. Estimated blood loss: Less than 5 mL. Impression: Atelectasis due to mucous plugging throughout R1-R10 and L1-L10 RML BAL performed RML Brushings performed RML Biopsy performed Recommendation: Follow-up RML BAL, RML Brushings, RML Biopsy results. Procedure codes: 02175, bronchoscopy, rigid and flexible, including fluoroscopic guidance, one performed; with bronchial endobronchial broncho-alveolar biopsy, single or multiple site Visit Coding Pulmonary Billing Provider: JAQUAN PRUITT MD Date of Service if different f: Feb 15, 2025 Common Visit Codes: [id number] INP/OBS CARE(HIGH) Procedure Codes: [id number] JAQUAN PRUITT MD Feb 15, 2025 12:25
--- NOTE | 2025-02-15 12:29 | DVHNC2 ---
Procedure - I administered moderate sedation throughout the 16 minutes of the procedure. An independent observer administered medications at my direction and monitored the patient's level of consciousness and physiological status throughout the procedure. CPT 47171 for the first 15 minutes. CPT 79774 for additional 15 minutes CONSCIOUS SEDATION PROCEDURE NOTE: Procedural Sedation Performed by: DR PRUITT Indications: Bronchoscopy [place] Protocol: a time out was performed and the correct patient and site were verified Consent: The risks and benefits of monitored anesthesia care, including the risk of aspiration, deep sedation requiring airway management including possible intubation, nausea/vomiting and the risks of not performing the procedure, including severe pain and inability to complete the procedure, were all discussed with the patient. The alternatives of performing the procedure, including local anesthesia and IV analgesia, also discussed. The patient has a ride home available. ASA Class: II-mild systemic disease Mallampati Score: 2 Pre-anesthesia evaluation, including history, exam, and informed consent is documented in the note above. Monitoring: Continuous monitoring of heart rate, respiratory rate, pulse oximetry and ETCO2. Supplemental oxygen prior to and during procedure via nasal cannula. Resuscitation equipment available at the bedside during sedation. Intra-service start time: 1005 am Intra-service stop time: 1032 am The patient received glycopyrrolate 0.2 mg, Versed 2 mg IV push, fentanyl 50 mcg IV push, Benadryl 25 mg IV push and dosages were recorded on the sedation form. The patient was recovered from the sedation without complication or incident. Patient returned to pre-sedation level of awareness. The monitoring was discontinued at this time. Post-anesthesia evaluation: Respiratory function, cardiovascular function, temperature, and mental status did return to pre-anesthetic state. Pain was controlled. The patient did tolerate p.o. Visit Coding Pulmonary Billing Provider: JAQUAN PRUITT MD Date of Service if different f: Feb 15, 2025 Common Visit Codes: [id number] INP/OBS CARE(HIGH) Procedure Codes: 98711-[id number] SEDATION INITIAL 15, 73890-[id number] SEDATION +15MIN JAQUAN PRUITT MD Feb 15, 2025 12:29
--- NOTE | 2025-02-15 15:01 | DVHPN2 ---
Assessment/Plan Assessment/Plan progress note 64 M with COPD, HTN, anemia rec tx, ex smoker, recent admission x2 in OSH with PNA / COPDe, admitted for same. previously discharged on po abx. seen today, s/p bronch, still on o2 supp, mucous plug removed, c/w abx. pending culture BAL. Physical exam AOx4 comfortable in NC no JVD PERRLA MMM S1 S2 RRR no murmur b/l coarse rhonchi abdomen soft nontender no LE edema labs ekg imaging reviewed bone marrow from 01/21/25 hypocellular marrow, minimal fibrosis and fatty marrow replacement, no iron stores, mild reticulin fibrosis POCUS done 02/11 performed and interpreted by me trace pericardial effusion, preserved contractility, dilated IVC with >50% excursion on inspiration bline widespread could be inf vs overload, no PLEF MRSA nares positive, flu covid neg assessment and plan acute on chronic hypoxic respiratory failure sepsis COPD exacerbation PNA gp vs gn MDS vs marrow suppression microcytic anemia hyperkalemia TIM VMN on CKD s/p 1 unit PRBC ex smoker protein calorie malnutrition pulm consult for bronch hyperK keep on step down maintain spo2 >92 maintain Hb >7 ipatropium and albuterol cefepime and vanc and doxy sputum culture steroid holding venofer NRT trend cr, K restarting losartan diet cardiac dvt ppx lovenox prognosis poor condition critical full code acp 30 minutes, pt against intubation haja but will reconsider if required Plan discussed with: Patient My Orders Orders - MIRANDA TRAN MD Procedure Category Date Status Time Creatinine LAB 02/16/25 Verified 04:00 Date of Service: Feb 15, 2025 Billing Provider: MIRANDA TRAN MD Common Visit Codes: [id number] INP/OBS CARE(HIGH) MIRANDA TRAN MD Feb 15, 2025 15:01
[2025-02-15] MEDS: CARVEDILOL 3.125 MG TAB PO ONE (15:42)
[2025-02-15] MEDS: VANCOMYCIN 750MG KIT 100 ML IV SCH (20:41)
[2025-02-15] MEDS: CARVEDILOL 3.125 MG TAB PO SCH (21:13)
--- NOTE | 2025-02-15 22:26 | DVHPN2 ---
Subjective DOS: 02/15/2025 Patient seen and examined at bedside. Remains on supplemental oxygen Overnight events reviewed. Reviewed: Care Plan, H&P, Labs, Medications, Previous Orders, Radiology Changes from previous H/P or p: No Changes Eyes: No Pain, No Vision change, No Conjunctivae inflammation, No Eyelid inflammation, No Other, No Redness ENT: No Ear pain, No Ear discharge, No Nose pain, No Nose discharge, No Nose congestion, No Mouth pain, No Mouth swelling, No Throat pain, No Throat swelling, No Other Cardiovascular: No Chest Pain, No Palpitations, No Orthopnea, No Paroxysmal Noc. Dyspnea, No Edema, No Lt Headedness, No Other Respiratory: No Cough, No Dry; Shortness of breath, SOB with excertion, W heezing; No Hemoptysis, No Pleuritic Pain, No Sputum, No Other Gastrointestinal: No Nausea, No Vomiting, No Abdominal Pain, No Diarrhea, No Constipation, No Melena, No Hematochezia, No Other Genitourinary: No Dysuria, No Frequency, No Incontinence, No Hematuria, No Retention, No Other Musculoskeletal: No other, No neck pain, No shoulder pain, No arm pain, No back pain, No hand pain, No leg pain, No foot pain Skin: No Rash, No Lesions, No Jaundice, No Bruising, No Other Objective Vitals Vital Signs Date Time Temp Pulse Resp B/P (MAP) Pulse Ox O2 Delivery O2 Flow Rate FiO2 02/15/25 21:13 81 150/81 02/15/25 21:00 98.8 18 94 98.8 02/15/25 19:42 Oxymizer 5.0 02/15/25 19:42 46 46 Intake/Output Intake and Output 02/15/25 07:00 Intake Total 1800 ml Output Total 1600 ml Balance 200 ml Intake Oral 1550 ml IV Total 250 ml Output Urine Total 1600 ml # Voids 10 # Bowel Movements 1 General Appearance: Alert, Cooperative HEENT: Atraumatic, PERRLA, EOMI, Mucous membr. moist/pink Neck: Supple Lungs: Clear to auscultation, Normal air movement Cardiovascular: Regular rate, Normal S1, Normal S2, No murmurs, Gallops, Rubs Abdomen: Normal bowel sounds, Soft, No tenderness Genitourinary: Tenderness Neuro: Cranial nerves 3-12 NL Psych/Mental Status: Mental status NL Medications Current Medications Medications Dose Ordered Sig/Raulito Route Start Time Stop Time Status Last Admin Dose Admin Albuterol 2.5 mg Q6HWA BANNER 02/09/25 12:00 02/15/25 19:40 2.5 MG Ipratropium [place] 0.5 mg Q6HWA NEB 02/09/25 12:00 02/15/25 19:40 0.5 MG Acetaminophen/ Hydrocodone Bitart 1 tab Q4HP PRN PO 02/09/25 12:00 02/11/25 17:28 1 TAB Acetaminophen 650 mg Q6HP PRN PO 02/09/25 12:00 02/09/25 23:23 650 MG Morphine Sulfate 2 mg Q30M PRN IV 02/09/25 12:00 Nicotine 1 patch DAILY TD 02/10/25 10:00 02/11/25 10:53 1 PATCH Patient Own Medication 1 tab DAILY PO 02/10/25 10:00 UNV Ferrous Sulfate 325 mg DAILY PO 02/10/25 10:00 02/15/25 12:24 325 MG Guaifenesin/ Codeine Phosphate 10 ml Q4HPRN PRN PO 02/10/25 19:00 02/15/25 21:12 10 ML Methylprednisolone Sodium Succinate 40 mg Q6HR IV 02/11/25 00:00 02/15/25 17:46 40 MG Budesonide 0.5 mg BID NEB 02/10/25 22:00 02/15/25 19:40 0.5 MG Vancomycin HCl 0 ml @ 0 mls/hr UD IV 02/11/25 09:30 Cefepime HCl 50 ml @ 12.5 mls/hr Q12HR IV 02/11/25 22:00 02/15/25 14:23 12.5 MLS/HR Doxycycline Hyclate 100 ml @ 50 mls/hr Q12H IV 02/11/25 10:30 02/15/25 21:14 50 MLS/HR Baclofen 5 mg Q8HP PRN PO 02/11/25 18:00 02/13/25 05:20 5 MG Hydrochlorothiazide 25 mg DAILY PO 02/12/25 10:00 02/15/25 12:23 25 MG Amlodipine Besylate 10 mg DAILY PO 02/12/25 10:00 02/15/25 12:22 10 MG Mupirocin 1 applic BID TOP 02/13/25 22:00 02/18/25 21:59 02/15/25 21:14 1 APPLIC Carvedilol 6.25 mg Q12HR PO 02/15/25 22:00 02/15/25 21:13 6.25 MG Vancomycin HCl 100 ml @ 100 mls/hr Q12H IV 02/15/25 20:00 02/15/25 20:41 100 MLS/HR Laboratory Results Laboratory Tests 02/15/25 05:06 Chemistry Test 02/15/25 05:06 Calcium Level 8.0 mg/dL (8.7-10.4) L Urinalysis Test 02/09/25 08:00 Urine Color Light-yellow (Yellow) Urine Clarity Clear (Clear) Urine pH 7.0 (5.0-9.0) Urine Specific [place] 1.014 (1.001-1.035) Urine Protein 2+ (Negative) H Urine Ketones Negative (Negative) Urine Blood Negative /uL (Negative) Urine Nitrite Negative (Negative) Urine Bilirubin Negative (Negative) Urine Urobilinogen Normal mg/dL (Negative) Urine Leukocyte Esterase Negative /uL (Negative) Urine RBC <1 /hpf (0 - 3) Urine Microscopic WBC 1 /HPF (0-3) Urine Squamous Epithelial Cells Few /hpf (<5) Urine Bacteria None seen /hpf (None Seen) Urine Glucose Normal mg/dL (Normal) Microbiology Microbiology Date/Time Source Procedure Growth Status 02/15/25 10:19 Lung Pending Resulted 02/15/25 10:19 Lung Pending Resulted 02/15/25 10:19 Lung Pending Resulted 02/15/25 10:19 Lung Pending Resulted 02/15/25 10:19 Lung - Final See Separate Report... Resulted 02/09/25 07:37 Blood Blood Culture - Final NO GROWTH AFTER 5 DAYS OF INCUBATION. Complete Assessment/Plan Assessment/Plan Impression: Acute hypoxic respiratory failure Pneumonia, likely gram negative Nicotine dependence Cachexia, BMI 17.5 Anemia, iron deficiency Leucocytosis Metabolic acidosis Events: Currently on supplemental oxygen, 6 LPM Oxymizer Taper O2 as tolerated Status post bronchoscopy with BAL; cleared mucous plugs throughout. Mucosa was noted to be very irritated, with copious secretions bilaterally. See separate procedure note for details. Continue bronchodilators Continue antibiotics Continue steroids; taper as tolerated Antitussive PRN cough. Incentive spirometry Diurese as tolerated Monitor renal function Monitor electrolytes; supplement as necessary Labs and imaging reviewed. Rest of plan as noted below. Plan: Supplemental oxygen Keep o2 saturation above 92% IV steroids Bronchodilators Continue abx Blood cultures: No growth thus far. Monitor WBC Monitor hgb Iron supplementation. Antitussive PRN cough Smoking cessation discussed greater than 10 minutes NRT Nutritional support DVT prophylaxis Prognosis: Poor given patient's multiple co-morbidities. Rest of plan per hospitalist and other consultants. Thank you, Dr. Dee, for allowing me to participate in this patient's care. Further recommendations will depend on the patient's clinical course. Please do not hesitate to contact me if you have any questions or concerns. This medical document was created using an electronic medical record system with [employer] dictation system. Although these documentations are being carefully reviewed, there may still be some phonetic and typographical changes. The errors are purely typographical, due to imperfection on the software program, and do not reflect any compromise in the patient's medical care Plan discussed with: Patient, Other (RN Moon) My Orders Orders - JAQUAN PRUITT MD Procedure Category Date Status Time Chest Xray 1 View XY 02/15/25 Resulted 10:42 2 Gm Sodium Diet DIET 02/15/25 Transmitted Lunch Cytology JIMMY 02/15/25 Transmitted 11:32 Respiratory Culture JIMMY 02/15/25 In Process W/ Gs 11:32 Fungus Culture With JIMMY 02/15/25 In Process Stain 11:32 Viral Culture JIMMY 02/15/25 In Process 11:32 AFB PATHOLOGY 02/15/25 Transmitted [id number] 11:32 Visit Coding Pulmonary Billing Provider: JAQUAN PRUITT MD Date of Service if different f: Feb 15, 2025 Common Visit Codes: [id number] INP/OBS CARE(HIGH) JAQUAN PRUITT MD Feb 15, 2025 22:26
[2025-02-16] VITALS (14 sets, daily range): BP systolic 152–156; BP diastolic 77–88; PULSE 65–83; RESP 14–18; TEMP 97.4–98.4; O2SAT 94–100
[2025-02-16 08:45] LABS: Hemoglobin 7.2 g/dL (13.5-17.5)
[2025-02-16 08:47] LABS: Hematocrit 22.5 % (41.0-53.0); Mean Corpuscular Hemoglobin 27.3 pg (28.0-32.0); Mean Corpuscular Volume 85.1 fL (80.0-100.0)
[2025-02-16 08:53] LABS: Potassium 4.9 mmol/L (3.5-5.1); Sodium 140 mmol/L (136-145)
[2025-02-16 08:54] LABS: Anion Gap 10 (5-15)
[2025-02-16 08:55] LABS: Calcium 7.8 mg/dL (8.7-10.4); Carbon Dioxide 19 mmol/L (20-31); Chloride 111 mmol/L (98-107)
[2025-02-16 08:59] LABS: BUN/Creatinine Ratio 38.2 (10.0-20.0)
[2025-02-16 09:02] LABS: Blood Urea Nitrogen 47 mg/dL (9-23); Glucose 164 mg/dL (74-106)
[2025-02-16 10:17] LABS: Nucleated Red Blood Cells % 6.0 %; Smudge Cells 7 /100 WBC
[2025-02-16 10:18] LABS: Total Cells Counted 100.0 (100)
[2025-02-16 10:20] LABS: Anisocytosis Moderate; Stomatocytes Few
--- NOTE | 2025-02-16 14:18 | DVHPN2 ---
Assessment/Plan Assessment/Plan progress note 64 M with COPD, HTN, anemia rec tx, ex smoker, recent admission x2 in OSH with PNA / COPDe, admitted for same. previously discharged on po abx. seen today, pending JERRI culture, h/h stable. Physical exam AOx4 comfortable in NC no JVD PERRLA MMM S1 S2 RRR no murmur b/l coarse rhonchi abdomen soft nontender no LE edema labs ekg imaging reviewed bone marrow from 01/21/25 hypocellular marrow, minimal fibrosis and fatty marrow replacement, no iron stores, mild reticulin fibrosis POCUS done 02/11 performed and interpreted by me trace pericardial effusion, preserved contractility, dilated IVC with >50% excursion on inspiration bline widespread could be inf vs overload, no PLEF MRSA nares positive, flu covid neg assessment and plan acute on chronic hypoxic respiratory failure sepsis COPD exacerbation PNA gp vs gn MDS vs marrow suppression microcytic anemia hyperkalemia TIM VMN on CKD s/p 1 unit PRBC ex smoker protein calorie malnutrition pulm consult for bronch hyperK keep on step down maintain spo2 >92 maintain Hb >7 ipatropium and albuterol cefepime and vanc and doxy sputum culture steroid holding venofer NRT trend cr, K restarting losartan diet cardiac dvt ppx lovenox prognosis poor condition critical full code acp 30 minutes, pt against intubation haja but will reconsider if required Plan discussed with: Patient My Orders Orders - MIRANDA TRAN MD Procedure Category Date Status Time Carvedilol Tablet PHA 02/15/25 In Process (Coreg Tablet) 22:00 Vancomycin 750mg Kit PHA 02/15/25 In Process (Vancomycin Hcl) 20:00 Vancomycin Per [facility] 02/15/25 In Process Pharmacy Protoc 20:00 Vancomycin,Trough LAB 02/19/25 Verified 07:00 Vancomycin Per JANE 02/19/25 In Process Pharmacy Protoc 08:00 Creatinine LAB 02/17/25 Verified 04:00 Date of Service: Feb 16, 2025 Billing Provider: MIRANDA TRAN MD Common Visit Codes: [id number] INP/OBS CARE(HIGH) MIRANDA TRAN MD Feb 16, 2025 14:18
[2025-02-16] MEDS: LORATADINE 10 MG TAB PO ONE (21:30)
--- NOTE | 2025-02-16 21:43 | DVHPN2 ---
Subjective DOS: 02/16/2025 Patient seen and examined at bedside. Remains on supplemental oxygen Overnight events reviewed. Reviewed: Care Plan, H&P, Labs, Medications, Previous Orders, Radiology Changes from previous H/P or p: No Changes Eyes: No Pain, No Vision change, No Conjunctivae inflammation, No Eyelid inflammation, No Other, No Redness ENT: No Ear pain, No Ear discharge, No Nose pain, No Nose discharge, No Nose congestion, No Mouth pain, No Mouth swelling, No Throat pain, No Throat swelling, No Other Cardiovascular: No Chest Pain, No Palpitations, No Orthopnea, No Paroxysmal Noc. Dyspnea, No Edema, No Lt Headedness, No Other Respiratory: No Cough, No Dry; Shortness of breath, SOB with excertion, W heezing; No Hemoptysis, No Pleuritic Pain, No Sputum, No Other Gastrointestinal: No Nausea, No Vomiting, No Abdominal Pain, No Diarrhea, No Constipation, No Melena, No Hematochezia, No Other Genitourinary: No Dysuria, No Frequency, No Incontinence, No Hematuria, No Retention, No Other Musculoskeletal: No other, No neck pain, No shoulder pain, No arm pain, No back pain, No hand pain, No leg pain, No foot pain Skin: No Rash, No Lesions, No Jaundice, No Bruising, No Other Objective Vitals Vital Signs Date Time Temp Pulse Resp B/P (MAP) Pulse Ox O2 Delivery O2 Flow Rate FiO2 02/16/25 18:54 73 16 100 02/16/25 18:44 Nasal Cannula 3.0 02/16/25 18:44 32 02/16/25 16:38 97.4 152/80 (104) 97.4 Intake/Output Intake and Output 02/16/25 07:00 Intake Total 1850 ml Output Total 2300 ml Balance -450 ml Intake Oral 1400 ml IV Total 450 ml Output Urine Total 2300 ml # Bowel Movements 1 General Appearance: Alert, Cooperative HEENT: Atraumatic, PERRLA, EOMI, Mucous membr. moist/pink Neck: Supple Lungs: Clear to auscultation, Normal air movement Cardiovascular: Regular rate, Normal S1, Normal S2, No murmurs, Gallops, Rubs Abdomen: Normal bowel sounds, Soft, No tenderness Genitourinary: Tenderness Neuro: Cranial nerves 3-12 NL Psych/Mental Status: Mental status NL Medications Current Medications Medications Dose Ordered Sig/Raulito Route Start Time Stop Time Status Last Admin Dose Admin Albuterol 2.5 mg Q6HWA NEB 02/09/25 12:00 02/16/25 18:49 2.5 MG Ipratropium [place] 0.5 mg Q6HWA NEB 02/09/25 12:00 02/16/25 18:49 0.5 MG Acetaminophen/ Hydrocodone Bitart 1 tab Q4HP PRN PO 02/09/25 12:00 02/11/25 17:28 1 TAB Acetaminophen 650 mg Q6HP PRN PO 02/09/25 12:00 02/09/25 23:23 650 MG Morphine Sulfate 2 mg Q30M PRN IV 02/09/25 12:00 Nicotine 1 patch DAILY TD 02/10/25 10:00 02/16/25 10:12 1 PATCH Patient Own Medication 1 tab DAILY PO 02/10/25 10:00 UNV Ferrous Sulfate 325 mg DAILY PO 02/10/25 10:00 02/16/25 10:11 325 MG Guaifenesin/ Codeine Phosphate 10 ml Q4HPRN PRN PO 02/10/25 19:00 02/16/25 20:46 10 ML Methylprednisolone Sodium Succinate 40 mg Q6HR IV 02/11/25 00:00 02/16/25 17:34 40 MG Budesonide 0.5 mg BID NEB 02/10/25 22:00 02/16/25 18:49 0.5 MG Vancomycin HCl 0 ml @ 0 mls/hr UD IV 02/11/25 09:30 Cefepime HCl 50 ml @ 12.5 mls/hr Q12HR IV 02/11/25 22:00 02/16/25 10:08 12.5 MLS/HR Doxycycline Hyclate 100 ml @ 50 mls/hr Q12H IV 02/11/25 10:30 02/16/25 11:29 50 MLS/HR Baclofen 5 mg Q8HP PRN PO 02/11/25 18:00 02/16/25 10:19 5 MG Hydrochlorothiazide 25 mg DAILY PO 02/12/25 10:00 02/16/25 10:12 25 MG Amlodipine Besylate 10 mg DAILY PO 02/12/25 10:00 02/16/25 10:12 10 MG Mupirocin 1 applic BID TOP 02/13/25 22:00 02/18/25 21:59 02/16/25 10:13 1 APPLIC Vancomycin HCl 100 ml @ 100 mls/hr Q12H IV 02/15/25 20:00 02/16/25 20:11 100 MLS/HR Carvedilol 12.5 mg Q12HR PO 02/16/25 22:00 UNV Loratadine 10 mg DAILY PO 02/17/25 10:00 UNV Laboratory Results Laboratory Tests 02/16/25 07:40 Chemistry Test 02/16/25 07:40 Calcium Level 7.8 mg/dL (8.7-10.4) L Urinalysis Test 02/09/25 08:00 Urine Color Light-yellow (Yellow) Urine Clarity Clear (Clear) Urine pH 7.0 (5.0-9.0) Urine Specific [place] 1.014 (1.001-1.035) Urine Protein 2+ (Negative) H Urine Ketones Negative (Negative) Urine Blood Negative /uL (Negative) Urine Nitrite Negative (Negative) Urine Bilirubin Negative (Negative) Urine Urobilinogen Normal mg/dL (Negative) Urine Leukocyte Esterase Negative /uL (Negative) Urine RBC <1 /hpf (0 - 3) Urine Microscopic WBC 1 /HPF (0-3) Urine Squamous Epithelial Cells Few /hpf (<5) Urine Bacteria None seen /hpf (None Seen) Urine Glucose Normal mg/dL (Normal) Microbiology Microbiology Date/Time Source Procedure Growth Status 02/15/25 10:19 Lung Pending Resulted 02/15/25 10:19 Lung Pending Resulted 02/15/25 10:19 Lung Pending Resulted 02/15/25 10:19 Lung Pending Resulted 02/15/25 10:19 Lung - Final See Separate Report... Resulted 02/15/25 10:19 Bronchial Brushings AFB Broth Culture Pending Resulted 02/15/25 10:19 Bronchial Brushings - Final Resulted 02/15/25 10:19 Bronchial Brushings - Final Resulted 02/15/25 10:19 Bronchial Brushings Acid Fast Bacilli Culture Pending Resulted 02/09/25 07:37 Blood Blood Culture - Final NO GROWTH AFTER 5 DAYS OF INCUBATION. Complete Assessment/Plan Assessment/Plan Impression: Acute hypoxic respiratory failure Pneumonia, likely gram negative Nicotine dependence Cachexia, BMI 17.5 Anemia, iron deficiency Leucocytosis Metabolic acidosis Events: Currently on supplemental oxygen 6 LPM Oxymizer --> 3 LPM NC Improved oxygen requirements Continue to taper O2 as tolerated Status post bronchoscopy with BAL on 02/15/25; cleared mucous plugs throughout. Mucosa was noted to be very irritated, with copious secretions bilaterally. See separate procedure note for details. Follow up cultures from BAL and biopsy. Patient reports feeling better. Improved oxygen requirements Continue bronchodilators Continue antibiotics Continue steroids; taper as tolerated Antitussive PRN cough. Incentive spirometry Diurese as tolerated Monitor renal function Monitor electrolytes; supplement as necessary Labs and imaging reviewed. Rest of plan as noted below. Plan: Supplemental oxygen Keep o2 saturation above 92% IV steroids Bronchodilators Continue abx Blood cultures: No growth thus far. Monitor WBC Monitor hgb Iron supplementation. Antitussive PRN cough Smoking cessation discussed greater than 10 minutes NRT Nutritional support DVT prophylaxis Prognosis: Poor given patient's multiple co-morbidities. Rest of plan per hospitalist and other consultants. Thank you, Dr. Dee, for allowing me to participate in this patient's care. Further recommendations will depend on the patient's clinical course. Please do not hesitate to contact me if you have any questions or concerns. This medical document was created using an electronic medical record system with [employer] computerized dictation system. Although these documentations are being carefully reviewed, there may still be some phonetic and typographical changes. The errors are purely typographical, due to imperfection on the software program, and do not reflect any compromise in the patient's medical care Plan discussed with: Patient, Other (GOKUL Khan) Visit Coding Pulmonary Billing Provider: JAQUAN PRUITT MD Date of Service if different f: Feb 16, 2025 Common Visit Codes: [id number] INP/OBS CARE(HIGH) JAQUAN PRUITT MD Feb 16, 2025 21:43
[2025-02-16] MEDS: CARVEDILOL 12.5 MG TAB PO SCH (22:35)
[2025-02-17] VITALS (14 sets, daily range): BP systolic 143–164; BP diastolic 80–90; PULSE 63–78; RESP 16–20; TEMP 97.7–99.1; O2SAT 96–100
[2025-02-17] MEDS: LORATADINE 10 MG TAB PO SCH (08:21)
--- NOTE | 2025-02-17 12:38 | DVHPN2 ---
Assessment/Plan Assessment/Plan progress note 64 M with COPD, HTN, anemia rec tx, ex smoker, recent admission x2 in OSH with PNA / COPDe, admitted for same. previously discharged on po abx. seen today, pending JERRI culture, h/h stable. will decrease blood draw, titrate coreg as tolerated for bp control, OOBTC, pT eval Physical exam AOx4 comfortable in NC no JVD PERRLA MMM S1 S2 RRR no murmur b/l coarse rhonchi abdomen soft nontender no LE edema labs ekg imaging reviewed bone marrow from 01/21/25 hypocellular marrow, minimal fibrosis and fatty marrow replacement, no iron stores, mild reticulin fibrosis POCUS done 02/11 performed and interpreted by me trace pericardial effusion, preserved contractility, dilated IVC with >50% excursion on inspiration bline widespread could be inf vs overload, no PLEF MRSA nares positive, flu covid neg assessment and plan acute on chronic hypoxic respiratory failure sepsis COPD exacerbation PNA gp vs gn MDS vs marrow suppression microcytic anemia hyperkalemia TIM VMN on CKD s/p 1 unit PRBC ex smoker protein calorie malnutrition pulm consult for bronch hyperK keep on step down maintain spo2 >92 maintain Hb >7 ipatropium and albuterol cefepime and vanc and doxy sputum culture steroid holding venofer NRT trend cr, K restarting losartan OOBTC diet cardiac dvt ppx lovenox prognosis poor condition critical full code acp 30 minutes, pt against intubation haja but will reconsider if required Plan discussed with: Patient My Orders Orders - MIRANDA TRAN MD Procedure Category Date Status Time Loratadine Tablet PHA 02/17/25 In Process (Claritin Tablet) 10:00 Carvedilol Tablet PHA 02/16/25 In Process (Coreg Tablet) 22:00 Creatinine LAB 02/18/25 Verified 04:00 Transfer Orders XFER 02/17/25 Transmitted 12:26 Carvedilol Tablet PHA 02/17/25 Transmitted (Coreg Tablet) 22:00 Out Of Bed Ambulate JANE 02/17/25 Transmitted 12:31 Pt Request For Service PT 02/17/25 Transmitted 12:31 Complete Blood Count LAB 02/18/25 Verified 04:00 Basic Metabolic Panel LAB 02/18/25 Verified 04:00 Date of Service: Feb 17, 2025 Billing Provider: MIRANDA TRAN MD Common Visit Codes: [id number] INP/OBS CARE(HIGH) MIRANDA TRAN MD Feb 17, 2025 12:38
[2025-02-17] MEDS: CARVEDILOL 12.5 MG TAB PO SCH (21:18)
--- NOTE | 2025-02-17 23:36 | DVHPN2 ---
Subjective DOS: 02/17/2025 Patient seen and examined at bedside. Remains on supplemental oxygen Overnight events reviewed. Reviewed: Care Plan, H&P, Labs, Medications, Previous Orders, Radiology Changes from previous H/P or p: No Changes Eyes: No Pain, No Vision change, No Conjunctivae inflammation, No Eyelid inflammation, No Other, No Redness ENT: No Ear pain, No Ear discharge, No Nose pain, No Nose discharge, No Nose congestion, No Mouth pain, No Mouth swelling, No Throat pain, No Throat swelling, No Other Cardiovascular: No Chest Pain, No Palpitations, No Orthopnea, No Paroxysmal Noc. Dyspnea, No Edema, No Lt Headedness, No Other Respiratory: No Cough, No Dry; Shortness of breath, SOB with excertion, W heezing; No Hemoptysis, No Pleuritic Pain, No Sputum, No Other Gastrointestinal: No Nausea, No Vomiting, No Abdominal Pain, No Diarrhea, No Constipation, No Melena, No Hematochezia, No Other Genitourinary: No Dysuria, No Frequency, No Incontinence, No Hematuria, No Retention, No Other Musculoskeletal: No other, No neck pain, No shoulder pain, No arm pain, No back pain, No hand pain, No leg pain, No foot pain Skin: No Rash, No Lesions, No Jaundice, No Bruising, No Other Objective Vitals Vital Signs Date Time Temp Pulse Resp B/P (MAP) Pulse Ox O2 Delivery O2 Flow Rate FiO2 02/17/25 21:18 73 130/71 02/17/25 21:00 99.1 20 97 99.1 02/17/25 20:00 Nasal Cannula* 3 32 Intake/Output Intake and Output 02/17/25 07:00 Intake Total 1300 ml Output Total 2650 ml Balance -1350 ml Intake Oral 1050 ml IV Total 250 ml Output Urine Total 2650 ml # Voids 1 General Appearance: Alert, Cooperative HEENT: Atraumatic, PERRLA, EOMI, Mucous membr. moist/pink Neck: Supple Lungs: Clear to auscultation, Normal air movement Cardiovascular: Regular rate, Normal S1, Normal S2, No murmurs, Gallops, Rubs Abdomen: Normal bowel sounds, Soft, No tenderness Genitourinary: Tenderness Neuro: Cranial nerves 3-12 NL Psych/Mental Status: Mental status NL Medications Current Medications Medications Dose Ordered Sig/Raulito Route Start Time Stop Time Status Last Admin Dose Admin Albuterol 2.5 mg Q6HWA [facility] 02/09/25 12:00 02/17/25 18:18 2.5 MG Ipratropium [place] 0.5 mg Q6HWA NEB 02/09/25 12:00 02/17/25 18:18 0.5 MG Acetaminophen/ Hydrocodone Bitart 1 tab Q4HP PRN PO 02/09/25 12:00 02/11/25 17:28 1 TAB Acetaminophen 650 mg Q6HP PRN PO 02/09/25 12:00 02/09/25 23:23 650 MG Morphine Sulfate 2 mg Q30M PRN IV 02/09/25 12:00 Nicotine 1 patch DAILY TD 02/10/25 10:00 02/17/25 10:16 1 PATCH Patient Own Medication 1 tab DAILY PO 02/10/25 10:00 UNV Ferrous Sulfate 325 mg DAILY PO 02/10/25 10:00 02/17/25 08:21 325 MG Guaifenesin/ Codeine Phosphate 10 ml Q4HPRN PRN PO 02/10/25 19:00 02/17/25 21:17 10 ML Methylprednisolone Sodium Succinate 40 mg Q6HR IV 02/11/25 00:00 02/17/25 17:51 40 MG Budesonide 0.5 mg BID NEB 02/10/25 22:00 02/17/25 18:18 0.5 MG Vancomycin HCl 0 ml @ 0 mls/hr UD IV 02/11/25 09:30 Cefepime HCl 50 ml @ 12.5 mls/hr Q12HR IV 02/11/25 22:00 02/17/25 10:11 12.5 MLS/HR Doxycycline Hyclate 100 ml @ 50 mls/hr Q12H IV 02/11/25 10:30 02/17/25 10:12 50 MLS/HR Baclofen 5 mg Q8HP PRN PO 02/11/25 18:00 02/17/25 00:41 5 MG Hydrochlorothiazide 25 mg DAILY PO 02/12/25 10:00 02/17/25 08:20 25 MG Amlodipine Besylate 10 mg DAILY PO 02/12/25 10:00 02/17/25 08:21 10 MG Mupirocin 1 applic BID TOP 02/13/25 22:00 02/18/25 21:59 02/17/25 22:05 1 APPLIC Vancomycin HCl 100 ml @ 100 mls/hr Q12H IV 02/15/25 20:00 02/17/25 20:30 100 MLS/HR Loratadine 10 mg DAILY PO 02/17/25 10:00 02/17/25 08:21 10 MG Carvedilol 25 mg Q12HR PO 02/17/25 22:00 02/17/25 21:18 25 MG Laboratory Results Laboratory Tests 02/16/25 07:40 02/17/25 05:16 Urinalysis Test 02/09/25 08:00 Urine Color Light-yellow (Yellow) Urine Clarity Clear (Clear) Urine pH 7.0 (5.0-9.0) Urine Specific [place] 1.014 (1.001-1.035) Urine Protein 2+ (Negative) H Urine Ketones Negative (Negative) Urine Blood Negative /uL (Negative) Urine Nitrite Negative (Negative) Urine Bilirubin Negative (Negative) Urine Urobilinogen Normal mg/dL (Negative) Urine Leukocyte Esterase Negative /uL (Negative) Urine RBC <1 /hpf (0 - 3) Urine Microscopic WBC 1 /HPF (0-3) Urine Squamous Epithelial Cells Few /hpf (<5) Urine Bacteria None seen /hpf (None Seen) Urine Glucose Normal mg/dL (Normal) Microbiology Microbiology Date/Time Source Procedure Growth Status 02/15/25 10:19 Lung Pending Resulted 02/15/25 10:19 Lung Pending Resulted 02/15/25 10:19 Lung Pending Resulted 02/15/25 10:19 Lung Pending Resulted 02/15/25 10:19 Lung - Final See Separate Report... Resulted 02/15/25 10:19 Bronchial Brushings AFB Broth Culture Pending Resulted 02/15/25 10:19 Bronchial Brushings - Final Resulted 02/15/25 10:19 Bronchial Brushings - Final Resulted 02/15/25 10:19 Bronchial Brushings Acid Fast Bacilli Culture Pending Resulted 02/09/25 07:37 Blood Blood Culture - Final NO GROWTH AFTER 5 DAYS OF INCUBATION. Complete Assessment/Plan Assessment/Plan Impression: Acute hypoxic respiratory failure Pneumonia, likely gram negative Nicotine dependence Cachexia, BMI 17.5 Anemia, iron deficiency Leucocytosis Metabolic acidosis Events: Remains on supplemental oxygen On 3 LPM NC Improved oxygen requirements Continue to taper O2 as tolerated Patient reports feeling better. Out of bed to chair PT evaluation Status post bronchoscopy with BAL on 02/15/25; cleared mucous plugs throughout. Mucosa was noted to be very irritated, with copious secretions bilaterally. See separate procedure note for details. Follow up cultures from BAL and biopsy. Continue bronchodilators Continue antibiotics F/u blood cultures Continue steroids; taper as tolerated Antitussive PRN cough. Incentive spirometry Blood pressure control Labs and imaging reviewed. Rest of plan as noted below. Plan: Supplemental oxygen Keep o2 saturation above 92% IV steroids Bronchodilators Continue abx Blood cultures: No growth thus far. Monitor WBC Monitor hgb - stable. Iron supplementation. Antitussive PRN cough Smoking cessation discussed greater than 10 minutes NRT Nutritional support Monitor renal function. Monitor electrolytes. Supplement as necessary. DVT prophylaxis Prognosis: Poor given patient's multiple co-morbidities. Rest of plan per hospitalist and other consultants. Thank you, Dr. Dee, for allowing me to participate in this patient's care. Further recommendations will depend on the patient's clinical course. Please do not hesitate to contact me if you have any questions or concerns. This medical document was created using an electronic medical record system with [employer] dictation system. Although these documentations are being carefully reviewed, there may still be some phonetic and typographical changes. The errors are purely typographical, due to imperfection on the software program, and do not reflect any compromise in the patient's medical care Plan discussed with: Patient, Other (RN) Visit Coding Pulmonary Billing Provider: JAQUAN PRUITT MD Date of Service if different f: Feb 17, 2025 Common Visit Codes: [id number] INP/OBS CARE(HIGH) JAQUAN PRUITT MD Feb 17, 2025 23:35
[2025-02-18] VITALS (18 sets, daily range): BP systolic 139–156; BP diastolic 77–89; PULSE 60–73; RESP 16–20; TEMP 97–98.3; O2SAT 97–100
[2025-02-18 07:48] LABS: Hematocrit 21.6 % (41.0-53.0); Mean Corpuscular Hemoglobin 27.4 pg (28.0-32.0); Mean Corpuscular Volume 85.5 fL (80.0-100.0)
[2025-02-18 07:56] LABS: Anion Gap 10 (5-15); Potassium 4.7 mmol/L (3.5-5.1); Sodium 137 mmol/L (136-145)
[2025-02-18 07:59] LABS: Calcium 7.9 mg/dL (8.7-10.4); Carbon Dioxide 18 mmol/L (20-31); Chloride 109 mmol/L (98-107)
[2025-02-18 08:02] LABS: BUN/Creatinine Ratio 34.9 (10.0-20.0); Hemoglobin 6.9 g/dL (13.5-17.5)
[2025-02-18 08:03] LABS: Blood Urea Nitrogen 37 mg/dL (9-23); Glucose 162 mg/dL (74-106)
[2025-02-18 10:32] LABS: Anisocytosis Moderate; Nucleated Red Blood Cells % 14.0 %; Total Cells Counted 100.0 (100)
--- NOTE | 2025-02-18 10:33 | DVHPN2 ---
Assessment/Plan Assessment/Plan progress note 64 M with COPD, HTN, anemia rec tx, ex smoker, recent admission x2 in OSH with PNA / COPDe, admitted for same. previously discharged on po abx. s/p bronch. covered empirically, now improved. pending BAL culture seen today, titrate spo2 to >92. hb 6.9, transfuse 1 unit. c/w PT for effort tolerance improvement Physical exam AOx4 comfortable in NC no JVD PERRLA MMM S1 S2 RRR no murmur b/l coarse rhonchi abdomen soft nontender no LE edema labs ekg imaging reviewed bone marrow from 01/21/25 hypocellular marrow, minimal fibrosis and fatty marrow replacement, no iron stores, mild reticulin fibrosis POCUS done 02/11 performed and interpreted by me trace pericardial effusion, preserved contractility, dilated IVC with >50% excursion on inspiration bline widespread could be inf vs overload, no PLEF MRSA nares positive, flu covid neg assessment and plan acute on chronic hypoxic respiratory failure sepsis COPD exacerbation PNA gp vs gn MDS vs marrow suppression microcytic anemia hyperkalemia TIM VMN on CKD s/p 1 unit PRBC ex smoker protein calorie malnutrition pulm consult for bronch hyperK keep on step down maintain spo2 >92 maintain Hb >7 ipatropium and albuterol cefepime and vanc and doxy sputum culture steroid holding venofer NRT trend cr, K restarting losartan OOBTC diet cardiac dvt ppx lovenox prognosis poor condition critical full code acp 30 minutes, pt against intubation haja but will reconsider if required Plan discussed with: Patient My Orders Orders - MIRANDA TRAN MD Procedure Category Date Status Time Transfer Orders XFER 02/17/25 Transmitted 12:26 Carvedilol Tablet PHA 02/17/25 In Process (Coreg Tablet) 22:00 Out Of Bed Ambulate JANE 02/17/25 In Process 12:31 Pt Request For Service PT 02/17/25 Logged 12:31 Complete Blood Count LAB 02/18/25 In Process 04:00 Manual Differential LAB 02/18/25 In Process 06:24 Packedcell-Noactive BBK 02/18/25 Logged Bleeding 10:18 Type And Screen BBK 02/18/25 Logged 10:18 Date of Service: Feb 18, 2025 Billing Provider: MIRANDA TRAN MD Common Visit Codes: [id number] INP/OBS CARE(HIGH) MIRANDA TRAN MD Feb 18, 2025 10:33
--- NOTE | 2025-02-18 14:35 | DVHPN2 ---
Progress Note - Dictate Date Seen: Feb 18, 2025 Has the PT tested + for MRSA If YES, has PT been informed?: No Medical Necessity Reason Pt with a Central, PICC or Fol: No vital signs Vital Sign Date Time Temp Pulse Resp B/P (MAP) Pulse Ox O2 Delivery O2 Flow Rate FiO2 02/18/25 12:51 98.2 70 20 153/85 (107) 98 98.2 02/18/25 12:06 Nasal Cannula* 3 32 Total Intake and Output 02/17/25 02/17/25 02/18/25 15:00 23:00 07:00 Intake Total 100 ml 775 ml 1230 ml Output Total 1200 ml Balance 100 ml 775 ml 30 ml medications Current Medications Medications Dose Ordered Sig/Raulito Route Start Time Stop Time Status Last Admin Dose Admin Albuterol 2.5 mg Q6HWA NEB 02/09/25 12:00 02/18/25 12:05 2.5 MG Ipratropium [place] 0.5 mg Q6HWA NEB 02/09/25 12:00 02/18/25 12:05 0.5 MG Acetaminophen/ Hydrocodone Bitart 1 tab Q4HP PRN PO 02/09/25 12:00 02/18/25 09:15 1 TAB Acetaminophen 650 mg Q6HP PRN PO 02/09/25 12:00 02/09/25 23:23 650 MG Morphine Sulfate 2 mg Q30M PRN IV 02/09/25 12:00 Nicotine 1 patch DAILY TD 02/10/25 10:00 02/18/25 10:51 1 PATCH Patient Own Medication 1 tab DAILY PO 02/10/25 10:00 UNV Ferrous Sulfate 325 mg DAILY PO 02/10/25 10:00 02/18/25 10:54 325 MG Guaifenesin/ Codeine Phosphate 10 ml Q4HPRN PRN PO 02/10/25 19:00 02/17/25 21:17 10 ML Methylprednisolone Sodium Succinate 40 mg Q6HR IV 02/11/25 00:00 02/18/25 12:14 40 MG Budesonide 0.5 mg BID NEB 02/10/25 22:00 02/18/25 06:46 0.5 MG Vancomycin HCl 0 ml @ 0 mls/hr UD IV 02/11/25 09:30 Cefepime HCl 50 ml @ 12.5 mls/hr Q12HR IV 02/11/25 22:00 02/18/25 10:50 12.5 MLS/HR Doxycycline Hyclate 100 ml @ 50 mls/hr Q12H IV 02/11/25 10:30 02/18/25 10:51 50 MLS/HR Baclofen 5 mg Q8HP PRN PO 02/11/25 18:00 02/17/25 00:41 5 MG Hydrochlorothiazide 25 mg DAILY PO 02/12/25 10:00 02/18/25 10:54 25 MG Amlodipine Besylate 10 mg DAILY PO 02/12/25 10:00 02/18/25 10:54 10 MG Mupirocin 1 applic BID TOP 02/13/25 22:00 02/18/25 21:59 02/18/25 10:00 1 APPLIC Vancomycin HCl 100 ml @ 100 mls/hr Q12H IV 02/15/25 20:00 02/18/25 09:03 100 MLS/HR Loratadine 10 mg DAILY PO 02/17/25 10:00 02/18/25 10:53 10 MG Carvedilol 25 mg Q12HR PO 02/17/25 22:00 02/18/25 10:53 25 MG laboratory and microbiology Laboratory Tests 02/18/25 06:24 Test 02/18/25 06:24 Range/Units Serum Glucose 162 H 74-106 mg/dL Assessment/Plan Acute hypoxic respiratory failure Pneumonia, likely gram negative Nicotine dependence Cachexia, BMI 17.5 Anemia, iron deficiency Leucocytosis Metabolic acidosis Events: Remains on supplemental oxygen On 3 LPM NC Improved oxygen requirements Continue to taper O2 as tolerated Status post bronchoscopy with BAL on 02/15/25; cleared mucous plugs throughout. Plan: Supplemental oxygen Keep o2 saturation above 92% IV steroids Bronchodilators Continue abx Blood cultures: No growth thus far. Monitor WBC Monitor hgb - stable. Iron supplementation. Nutritional support Monitor renal function. Monitor electrolytes. Supplement as necessary. DVT prophylaxis Dietary Evaluation Review Recommendations by RD: Increase Calorie Intake Comments: 1) Initiate Ensure Enlive bid 2) Encourage optimal PO intake 3) Follow-up with cardiology, pulmonology, and nephrology 4) Continue to monitor I&O, labs, and skin integrity Expected Outcomes/Goals: 1) appetite and labs to improve 2) f/u in 3-5 days Plan discussed with: Patient CC Plasma Assessment Blood Product Administration S: [id number] CATE VICENTE MD Feb 18, 2025 14:35
[2025-02-19] VITALS (14 sets, daily range): BP systolic 129–160; BP diastolic 74–91; PULSE 59–78; RESP 14–18; TEMP 97.2–98.6; O2SAT 91–100
[2025-02-19 05:32] LABS: Hemoglobin 8.0 g/dL (13.5-17.5); Mean Corpuscular Hemoglobin 27.6 pg (28.0-32.0)
[2025-02-19 05:34] LABS: Hematocrit 24.6 % (41.0-53.0); Mean Corpuscular Volume 84.8 fL (80.0-100.0)
[2025-02-19 05:39] LABS: Potassium 4.5 mmol/L (3.5-5.1); Sodium 138 mmol/L (136-145)
[2025-02-19 05:40] LABS: Anion Gap 10 (5-15); Carbon Dioxide 20 mmol/L (20-31)
[2025-02-19 05:42] LABS: Calcium 7.8 mg/dL (8.7-10.4); Chloride 108 mmol/L (98-107)
[2025-02-19 05:45] LABS: BUN/Creatinine Ratio 31.9 (10.0-20.0)
[2025-02-19 05:47] LABS: Blood Urea Nitrogen 36 mg/dL (9-23); Glucose 185 mg/dL (74-106)
[2025-02-19 06:20] LABS: Nucleated Red Blood Cells % 16.0 %; Smudge Cells 1 /100 WBC; Total Cells Counted 100.0 (100)
[2025-02-19 06:25] LABS: Ovalocytes FEW
--- NOTE | 2025-02-19 11:14 | DVHPN2 ---
Subjective Patient states that his shortness of breath has improved. Reviewed: Care Plan, H&P, Labs, Medications, Previous Orders, Radiology Changes from previous H/P or p: Changes Eyes: No Pain, No Vision change, No Conjunctivae inflammation, No Eyelid inflammation, No Other, No Redness ENT: No Ear pain, No Ear discharge, No Nose pain, No Nose discharge, No Nose congestion, No Mouth pain, No Mouth swelling, No Throat pain, No Throat swelling, No Other Cardiovascular: No Chest Pain, No Palpitations, No Orthopnea, No Paroxysmal Noc. Dyspnea, No Edema, No Lt Headedness, No Other Respiratory: No Cough, No Dry; Shortness of breath, SOB with excertion, W heezing; No Hemoptysis, No Pleuritic Pain, No Sputum, No Other Gastrointestinal: No Nausea, No Vomiting, No Abdominal Pain, No Diarrhea, No Constipation, No Melena, No Hematochezia, No Other Genitourinary: No Dysuria, No Frequency, No Incontinence, No Hematuria, No Retention, No Other Musculoskeletal: No other, No neck pain, No shoulder pain, No arm pain, No back pain, No hand pain, No leg pain, No foot pain Skin: No Rash, No Lesions, No Jaundice, No Bruising, No Other Objective Vitals Vital Signs Date Time Temp Pulse Resp B/P (MAP) Pulse Ox O2 Delivery O2 Flow Rate FiO2 02/19/25 09:54 64 160/86 02/19/25 09:00 98.6 16 96 98.6 02/19/25 08:00 Nasal Cannula* 3 32 Intake/Output Intake and Output 02/19/25 07:00 Intake Total 1550 ml Balance 1550 ml Intake Oral 1000 ml IV Total 250 ml Blood Product 300 ml # Voids 11 # Bowel Movements 1 General Appearance: Alert, Oriented X3, Cooperative HEENT: Atraumatic, PERRLA, EOMI, Mucous membr. moist/pink Neck: Supple Lungs: Clear to auscultation, Normal air movement Cardiovascular: Regular rate, Normal S1, Normal S2, No murmurs, Gallops, Rubs Abdomen: Normal bowel sounds, Soft, No tenderness Genitourinary: Tenderness Neuro: Cranial nerves 3-12 NL Psych/Mental Status: Mental status NL Medications Current Medications Medications Dose Ordered Sig/Raulito Route Start Time Stop Time Status Last Admin Dose Admin Albuterol 2.5 mg Q6HWA NEB 02/09/25 12:00 02/19/25 07:44 2.5 MG Ipratropium [place] 0.5 mg Q6HWA NEB 02/09/25 12:00 02/19/25 07:44 0.5 MG Acetaminophen 650 mg Q6HP PRN PO 02/09/25 12:00 02/09/25 23:23 650 MG Nicotine 1 patch DAILY TD 02/10/25 10:00 02/19/25 09:54 1 PATCH Patient Own Medication 1 tab DAILY PO 02/10/25 10:00 UNV Ferrous Sulfate 325 mg DAILY PO 02/10/25 10:00 02/19/25 09:54 325 MG Guaifenesin/ Codeine Phosphate 10 ml Q4HPRN PRN PO 02/10/25 19:00 02/17/25 21:17 10 ML Budesonide 0.5 mg BID NEB 02/10/25 22:00 02/19/25 07:44 0.5 MG Vancomycin HCl 0 ml @ 0 mls/hr UD IV 02/11/25 09:30 Cefepime HCl 50 ml @ 12.5 mls/hr Q12HR IV 02/11/25 22:00 02/18/25 21:45 12.5 MLS/HR Doxycycline Hyclate 100 ml @ 50 mls/hr Q12H IV 02/11/25 10:30 02/19/25 09:55 50 MLS/HR Baclofen 5 mg Q8HP PRN PO 02/11/25 18:00 02/17/25 00:41 5 MG Hydrochlorothiazide 25 mg DAILY PO 02/12/25 10:00 02/19/25 09:54 25 MG Amlodipine Besylate 10 mg DAILY PO 02/12/25 10:00 02/19/25 09:53 10 MG Loratadine 10 mg DAILY PO 02/17/25 10:00 02/19/25 09:54 10 MG Carvedilol 25 mg Q12HR PO 02/17/25 22:00 02/19/25 09:54 25 MG Methylprednisolone Sodium Succinate 40 mg Q8HR IV 02/19/25 14:00 UNV Laboratory Results Laboratory Tests 02/19/25 05:14 Chemistry Test 02/19/25 05:14 Calcium Level 7.8 mg/dL (8.7-10.4) L Urinalysis Test 02/09/25 08:00 Urine Color Light-yellow (Yellow) Urine Clarity Clear (Clear) Urine pH 7.0 (5.0-9.0) Urine Specific [place] 1.014 (1.001-1.035) Urine Protein 2+ (Negative) H Urine Ketones Negative (Negative) Urine Blood Negative /uL (Negative) Urine Nitrite Negative (Negative) Urine Bilirubin Negative (Negative) Urine Urobilinogen Normal mg/dL (Negative) Urine Leukocyte Esterase Negative /uL (Negative) Urine RBC <1 /hpf (0 - 3) Urine Microscopic WBC 1 /HPF (0-3) Urine Squamous Epithelial Cells Few /hpf (<5) Urine Bacteria None seen /hpf (None Seen) Urine Glucose Normal mg/dL (Normal) Microbiology Microbiology Date/Time Source Procedure Growth Status 02/15/25 10:19 Lung Pending Resulted 02/15/25 10:19 Lung Pending Resulted 02/15/25 10:19 Lung Pending Resulted 02/15/25 10:19 Lung Pending Resulted 02/15/25 10:19 Lung - Final See Separate Report... Resulted 02/15/25 10:19 Bronchial Brushings AFB Broth Culture Pending Resulted 02/15/25 10:19 Bronchial Brushings - Final Resulted 02/15/25 10:19 Bronchial Brushings - Final Resulted 02/15/25 10:19 Bronchial Brushings Acid Fast Bacilli Culture Pending Resulted 02/09/25 07:37 Blood Blood Culture - Final NO GROWTH AFTER 5 DAYS OF INCUBATION. Complete Labs and/or images reviewed: Labs reviewed by me, Image(s) reviewed by me Assessment/Plan Assessment/Plan Impression: -acute on chronic hypoxic respiratory failure -sepsis -pneumonia, Gram-positive/Gram-negative etiology -sepsis -? MDS versus bone marrow suppression -microcytic anemia -thrombocytopenia -acute kidney injury, vasomotor nephropathy -tobacco dependence Plan: -obtain medical records, bone marrow biopsy from [facility] ([place]) -continue bronchodilators -wean Solu-Medrol -O2 supplementation to keep saturation greater than 93% -continue empiric antibiotic therapy until BAL results are obtained -PUD prophylaxis -tobacco cessation education: 10 minutes spent with the patient regarding the need to remain abstain from smoking -repeat chest x-ray today Total time spent with patient discussing and formulating plan of care: 35 minutes. This medical document was created using an electronic medical record system with [employer] computerized dictation system. Although this document has been carefully reviewed, there may still be some phonetic and typographical errors. These areas are purely typographical due to imperfections of the software programs, and do not reflect any compromise in the patient's medical care. Plan discussed with: Patient, Other (RN) My Orders Orders - DONOVAN KAUR NP Procedure Category Date Status Time Methylprednisolone PHA 02/19/25 Logged Sod Succ (Solu Medrol 14:00 Obtain Mr From Other ORDERS 02/19/25 Transmitted Facility 10:56 Chest Xray 1 View XY 02/19/25 Logged 10:56 Date of Service: Feb 19, 2025 Billing Provider: DONOVAN KAUR NP Common Visit Codes: [id number] INP/OBS CARE(HIGH) DONOVAN KAUR NP Feb 19, 2025 11:14
--- NOTE | 2025-02-19 13:33 | DVH ---
CHEST RADIOGRAPH Indication: pna Technique: Single frontal view of the chest was obtained Comparison: XY CHEST XRAY 1 VIEW on DOS: 02/15/25, XY CHEST PORTABLE on DOS: 02/12/25, XY CHEST PORTABL E on DOS: 02/09/25 FINDINGS: Lines and Tubes: None Lungs: No focal consolidation. Pleura: No effusion. No pneumothorax. Cardiomediastinal contours: Unremarkable Bones: No acute osseous abnormality. IMPRESSION: 1. No acute cardiopulmonary disease. 2. Significant change 02/15/2025
[2025-02-19] MEDS: methylPREDNISolone SOD SUCC 40 MG/ML VL IV SCH (13:35)
--- NOTE | 2025-02-19 18:58 | DVHPN2 ---
Progress Note - Dictate Date Seen: Feb 19, 2025 Has the PT tested + for MRSA If YES, has PT been informed?: No Medical Necessity Reason Pt with a Central, PICC or Fol: No vital signs Vital Sign Date Time Temp Pulse Resp B/P (MAP) Pulse Ox O2 Delivery O2 Flow Rate FiO2 02/19/25 18:01 99 Nasal Cannula 3.0 02/19/25 18:01 66 16 02/19/25 18:01 32 02/19/25 17:00 97.5 129/84 (99) 97.5 Total Intake and Output 02/18/25 02/18/25 02/19/25 15:00 23:00 07:00 Intake Total 250 ml 800 ml 500 ml Balance 250 ml 800 ml 500 ml medications Current Medications Medications Dose Ordered Sig/Raulito Route Start Time Stop Time Status Last Admin Dose Admin Albuterol 2.5 mg Q6HWA NEB 02/09/25 12:00 02/19/25 18:01 2.5 MG Ipratropium [place] 0.5 mg Q6HWA NEB 02/09/25 12:00 02/19/25 18:01 0.5 MG Acetaminophen 650 mg Q6HP PRN PO 02/09/25 12:00 02/09/25 23:23 650 MG Nicotine 1 patch DAILY TD 02/10/25 10:00 02/19/25 09:54 1 PATCH Patient Own Medication 1 tab DAILY PO 02/10/25 10:00 UNV Ferrous Sulfate 325 mg DAILY PO 02/10/25 10:00 02/19/25 09:54 325 MG Guaifenesin/ Codeine Phosphate 10 ml Q4HPRN PRN PO 02/10/25 19:00 02/17/25 21:17 10 ML Budesonide 0.5 mg BID NEB 02/10/25 22:00 02/19/25 18:01 0.5 MG Vancomycin HCl 0 ml @ 0 mls/hr UD IV 02/11/25 09:30 Cefepime HCl 50 ml @ 12.5 mls/hr Q12HR IV 02/11/25 22:00 02/19/25 13:35 12.5 MLS/HR Doxycycline Hyclate 100 ml @ 50 mls/hr Q12H IV 02/11/25 10:30 02/19/25 09:55 50 MLS/HR Baclofen 5 mg Q8HP PRN PO 02/11/25 18:00 02/17/25 00:41 5 MG Hydrochlorothiazide 25 mg DAILY PO 02/12/25 10:00 02/19/25 09:54 25 MG Amlodipine Besylate 10 mg DAILY PO 02/12/25 10:00 02/19/25 09:53 10 MG Loratadine 10 mg DAILY PO 02/17/25 10:00 02/19/25 09:54 10 MG Carvedilol 25 mg Q12HR PO 02/17/25 22:00 02/19/25 09:54 25 MG Methylprednisolone Sodium Succinate 40 mg Q8HR IV 02/19/25 14:00 02/19/25 13:35 40 MG laboratory and microbiology Laboratory Tests 02/19/25 05:14 Test 02/19/25 05:14 Range/Units Serum Glucose 185 H 74-106 mg/dL Assessment/Plan Acute hypoxic respiratory failure Pneumonia, likely gram negative Nicotine dependence Cachexia, BMI 17.5 Anemia, iron deficiency Leucocytosis Metabolic acidosis Events: Remains on supplemental oxygen On 3 LPM NC Improved oxygen requirements Continue to taper O2 as tolerated Status post bronchoscopy with BAL on 02/15/25; cleared mucous plugs throughout. Plan: Supplemental oxygen Keep o2 saturation above 92% IV steroids Bronchodilators Continue abx Blood cultures: No growth thus far. Monitor WBC Monitor hgb - stable. Iron supplementation. Nutritional support Monitor renal function. Monitor electrolytes. Supplement as necessary. DVT prophylaxis Dietary Evaluation Review Recommendations by RD: Increase Calorie Intake Comments: 1) Initiate Ensure Enlive bid 2) Encourage optimal PO intake 3) Follow-up with cardiology, pulmonology, and nephrology 4) Continue to monitor I&O, labs, and skin integrity Expected Outcomes/Goals: 1) appetite and labs to improve 2) f/u in 3-5 days Plan discussed with: Patient CC Plasma Assessment Blood Product Administration S: [id number] CATE VICENTE MD Feb 19, 2025 18:58
[2025-02-20] VITALS (12 sets, daily range): BP systolic 131–140; BP diastolic 75–86; PULSE 64–76; RESP 14–18; TEMP 97.6–98.9; O2SAT 95–100
[2025-02-20 07:30] LABS: Hematocrit 25.0 % (41.0-53.0); Hemoglobin 8.1 g/dL (13.5-17.5); Mean Corpuscular Hemoglobin 27.1 pg (28.0-32.0); Mean Corpuscular Volume 83.9 fL (80.0-100.0); Nucleated Red Blood Cells % 7.5 %
[2025-02-20 08:14] LABS: Anisocytosis Moderate; Tear Drop Cells FEW
--- NOTE | 2025-02-20 11:13 | DVHPN2 ---
Subjective Patient states that his shortness of breath has improved. Reviewed: Care Plan, H&P, Labs, Medications, Previous Orders, Radiology Changes from previous H/P or p: No Changes General: Per HPI Eyes: No Pain, No Vision change, No Conjunctivae inflammation, No Eyelid inflammation, No Other, No Redness ENT: No Ear pain, No Ear discharge, No Nose pain, No Nose discharge, No Nose congestion, No Mouth pain, No Mouth swelling, No Throat pain, No Throat swelling, No Other Cardiovascular: No Chest Pain, No Palpitations, No Orthopnea, No Paroxysmal Noc. Dyspnea, No Edema, No Lt Headedness, No Other Respiratory: No Cough, No Dry; Shortness of breath, SOB with excertion, W heezing; No Hemoptysis, No Pleuritic Pain, No Sputum, No Other Gastrointestinal: No Nausea, No Vomiting, No Abdominal Pain, No Diarrhea, No Constipation, No Melena, No Hematochezia, No Other Genitourinary: No Dysuria, No Frequency, No Incontinence, No Hematuria, No Retention, No Other Musculoskeletal: No other, No neck pain, No shoulder pain, No arm pain, No back pain, No hand pain, No leg pain, No foot pain Skin: No Rash, No Lesions, No Jaundice, No Bruising, No Other Objective Vitals Vital Signs Date Time Temp Pulse Resp B/P (MAP) Pulse Ox O2 Delivery O2 Flow Rate FiO2 02/20/25 09:37 140/86 02/20/25 09:36 65 02/20/25 08:30 97.6 18 99 97.6 02/20/25 06:32 Room Air 0.0 02/20/25 06:32 21 Intake/Output Intake and Output 02/20/25 07:00 Intake Total 1350 ml Output Total 1750 ml Balance -400 ml Intake Oral 1250 ml IV Total 100 ml Output Urine Total 1750 ml General Appearance: Alert, Oriented X3, Cooperative HEENT: Atraumatic, PERRLA, EOMI, Mucous membr. moist/pink Neck: Supple Lungs: Clear to auscultation, Normal air movement Cardiovascular: Regular rate, Normal S1, Normal S2, No murmurs, Gallops, Rubs Abdomen: Normal bowel sounds, Soft, No tenderness Genitourinary: Tenderness Neuro: Cranial nerves 3-12 NL Skin: Dry, Intact Psych/Mental Status: Mental status NL Medications Current Medications Medications Dose Ordered Sig/Raulito Route Start Time Stop Time Status Last Admin Dose Admin Albuterol 2.5 mg Q6HWA NEB 02/09/25 12:00 02/20/25 06:31 2.5 MG Ipratropium [place] 0.5 mg Q6HWA NEB 02/09/25 12:00 02/20/25 06:31 0.5 MG Acetaminophen 650 mg Q6HP PRN PO 02/09/25 12:00 02/09/25 23:23 650 MG Nicotine 1 patch DAILY TD 02/10/25 10:00 02/20/25 09:37 1 PATCH Patient Own Medication 1 tab DAILY PO 02/10/25 10:00 UNV Ferrous Sulfate 325 mg DAILY PO 02/10/25 10:00 02/20/25 09:35 325 MG Guaifenesin/ Codeine Phosphate 10 ml Q4HPRN PRN PO 02/10/25 19:00 02/19/25 21:06 10 ML Budesonide 0.5 mg BID NEB 02/10/25 22:00 02/20/25 06:31 0.5 MG Vancomycin HCl 0 ml @ 0 mls/hr UD IV 02/11/25 09:30 Cefepime HCl 50 ml @ 12.5 mls/hr Q12HR IV 02/11/25 22:00 02/20/25 09:35 12.5 MLS/HR Doxycycline Hyclate 100 ml @ 50 mls/hr Q12H IV 02/11/25 10:30 02/19/25 21:05 50 MLS/HR Baclofen 5 mg Q8HP PRN PO 02/11/25 18:00 02/17/25 00:41 5 MG Hydrochlorothiazide 25 mg DAILY PO 02/12/25 10:00 02/20/25 09:35 25 MG Amlodipine Besylate 10 mg DAILY PO 02/12/25 10:00 02/20/25 09:37 10 MG Loratadine 10 mg DAILY PO 02/17/25 10:00 02/20/25 09:36 10 MG Carvedilol 25 mg Q12HR PO 02/17/25 22:00 02/20/25 09:36 25 MG Methylprednisolone Sodium Succinate 40 mg Q8HR IV 02/19/25 14:00 02/20/25 05:48 40 MG Laboratory Results Laboratory Tests 02/19/25 05:14 02/20/25 06:31 Urinalysis Test 02/09/25 08:00 Urine Color Light-yellow (Yellow) Urine Clarity Clear (Clear) Urine pH 7.0 (5.0-9.0) Urine Specific [place] 1.014 (1.001-1.035) Urine Protein 2+ (Negative) H Urine Ketones Negative (Negative) Urine Blood Negative /uL (Negative) Urine Nitrite Negative (Negative) Urine Bilirubin Negative (Negative) Urine Urobilinogen Normal mg/dL (Negative) Urine Leukocyte Esterase Negative /uL (Negative) Urine RBC <1 /hpf (0 - 3) Urine Microscopic WBC 1 /HPF (0-3) Urine Squamous Epithelial Cells Few /hpf (<5) Urine Bacteria None seen /hpf (None Seen) Urine Glucose Normal mg/dL (Normal) Microbiology Microbiology Date/Time Source Procedure Growth Status 02/15/25 10:19 Lung Pending Resulted 02/15/25 10:19 Lung Pending Resulted 02/15/25 10:19 Lung Pending Resulted 02/15/25 10:19 Lung Pending Resulted 02/15/25 10:19 Lung - Final See Separate Report... Resulted 02/15/25 10:19 Bronchial Brushings AFB Broth Culture Pending Resulted 02/15/25 10:19 Bronchial Brushings - Final Resulted 02/15/25 10:19 Bronchial Brushings - Final Resulted 02/15/25 10:19 Bronchial Brushings Acid Fast Bacilli Culture Pending Resulted 02/09/25 07:37 Blood Blood Culture - Final NO GROWTH AFTER 5 DAYS OF INCUBATION. Complete Labs and/or images reviewed: Labs reviewed by me, Image(s) reviewed by me Assessment/Plan Assessment/Plan Impression: -acute on chronic hypoxic respiratory failure -sepsis -pneumonia, Gram-positive/Gram-negative etiology -sepsis -? MDS versus bone marrow suppression -microcytic anemia -thrombocytopenia -acute kidney injury, vasomotor nephropathy -tobacco dependence Plan: Events: Chest x-ray improved. Patient on 3 L via nasal cannula. Denies any dyspnea. -obtain medical records, bone marrow biopsy from [facility] , pending -continue bronchodilators -wean Solu-Medrol -O2 supplementation to keep saturation greater than 93% -continue empiric antibiotic therapy until BAL results are obtained -PUD prophylaxis -tobacco cessation education: 10 minutes spent with the patient regarding the need to remain abstain from smoking -repeat chest x-ray today Total time spent with patient discussing and formulating plan of care: 35 minutes. This medical document was created using an electronic medical record system with [employer] dictation system. Although this document has been carefully reviewed, there may still be some phonetic and typographical errors. These areas are purely typographical due to imperfections of the software programs, and do not reflect any compromise in the patient's medical care. Plan discussed with: Patient, Other (RN) Date of Service: Feb 20, 2025 Billing Provider: DONOVAN KAUR NP Common Visit Codes: [id number] INP/OBS CARE(HIGH) DONOVAN KAUR NP Feb 20, 2025 11:13
--- NOTE | 2025-02-20 15:15 | DVHPN2 ---
Progress Note - Dictate Date Seen: Feb 20, 2025 Has the PT tested + for MRSA If YES, has PT been informed?: No Medical Necessity Reason Pt with a Central, PICC or Fol: No vital signs Vital Sign Date Time Temp Pulse Resp B/P (MAP) Pulse Ox O2 Delivery O2 Flow Rate FiO2 02/20/25 13:22 97.9 69 18 131/79 (96) 98 97.9 02/20/25 11:13 Nasal Cannula* 3 32 Total Intake and Output 02/19/25 02/19/25 02/20/25 15:00 23:00 07:00 Intake Total 100 ml 650 ml 600 ml Output Total 950 ml 800 ml Balance 100 ml -300 ml -200 ml medications Current Medications Medications Dose Ordered Sig/Raulito Route Start Time Stop Time Status Last Admin Dose Admin Albuterol 2.5 mg Q6HWA NEB 02/09/25 12:00 02/20/25 11:13 2.5 MG Ipratropium [place] 0.5 mg Q6HWA NEB 02/09/25 12:00 02/20/25 11:13 0.5 MG Acetaminophen 650 mg Q6HP PRN PO 02/09/25 12:00 02/09/25 23:23 650 MG Nicotine 1 patch DAILY TD 02/10/25 10:00 02/20/25 09:37 1 PATCH Patient Own Medication 1 tab DAILY PO 02/10/25 10:00 UNV Ferrous Sulfate 325 mg DAILY PO 02/10/25 10:00 02/20/25 09:35 325 MG Guaifenesin/ Codeine Phosphate 10 ml Q4HPRN PRN PO 02/10/25 19:00 02/19/25 21:06 10 ML Budesonide 0.5 mg BID NEB 02/10/25 22:00 02/20/25 06:31 0.5 MG Vancomycin HCl 0 ml @ 0 mls/hr UD IV 02/11/25 09:30 Doxycycline Hyclate 100 ml @ 50 mls/hr Q12H IV 02/11/25 10:30 02/19/25 21:05 50 MLS/HR Baclofen 5 mg Q8HP PRN PO 02/11/25 18:00 02/20/25 12:56 5 MG Hydrochlorothiazide 25 mg DAILY PO 02/12/25 10:00 02/20/25 09:35 25 MG Amlodipine Besylate 10 mg DAILY PO 02/12/25 10:00 02/20/25 09:37 10 MG Loratadine 10 mg DAILY PO 02/17/25 10:00 02/20/25 09:36 10 MG Carvedilol 25 mg Q12HR PO 02/17/25 22:00 02/20/25 09:36 25 MG Methylprednisolone Sodium Succinate 40 mg Q8HR IV 02/19/25 14:00 02/20/25 14:58 40 MG Cefepime HCl 50 ml @ 12.5 mls/hr Q8H IV 02/20/25 18:00 Vancomycin HCl 100 ml @ 100 mls/hr Q12H IV 02/20/25 16:00 laboratory and microbiology Laboratory Tests 02/20/25 06:31 02/19/25 05:14 Test 02/19/25 05:14 Range/Units Serum Glucose 185 H 74-106 mg/dL Assessment/Plan Acute hypoxic respiratory failure Pneumonia, likely gram negative Nicotine dependence Cachexia, BMI 17.5 Anemia, iron deficiency Leucocytosis Metabolic acidosis Events: Remains on supplemental oxygen On 3 LPM NC no acute events Status post bronchoscopy with BAL on 02/15/25; cleared mucous plugs throughout. Plan: Supplemental oxygen Keep o2 saturation above 92% IV steroids Bronchodilators Continue abx Blood cultures: No growth thus far. Monitor WBC Monitor hgb - stable. Iron supplementation. Nutritional support Monitor renal function. Monitor electrolytes. Supplement as necessary. DVT prophylaxis Dietary Evaluation Review Recommendations by RD: Increase Calorie Intake Comments: 1) Initiate Ensure Enlive bid 2) Encourage optimal PO intake 3) Follow-up with cardiology, pulmonology, and nephrology 4) Continue to monitor I&O, labs, and skin integrity Expected Outcomes/Goals: 1) appetite and labs to improve 2) f/u in 3-5 days Plan discussed with: Patient CC Plasma Assessment Blood Product Administration S: [id number] CATE VICETNE MD Feb 20, 2025 15:15
[2025-02-20] MEDS: VANCOMYCIN 750MG KIT 100 ML IV SCH (18:26)
[2025-02-20] MEDS: CEFEPIME 2GM/50ML NS 50 ML IV SCH (21:49)
[2025-02-21] VITALS (11 sets, daily range): BP systolic 131–155; BP diastolic 82–94; PULSE 67–74; RESP 16–20; TEMP 97.3–98.4; O2SAT 96–100
--- NOTE | 2025-02-21 07:38 | ECG ---
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
--- NOTE | 2025-02-21 07:38 | ECG ---
[facility] Test Date: 2025-02-20 Test Time: 15:04:23 Pat Name: COOPER ANN Department: Room: 0250 A Gender: M Authorization Representative: cornelia : 1960 Requested By: DONOVAN KAUR Order Number: [id number] Reading MD: Measurements Intervals [place] Rate: 74 P: 64 ND: 138 QRS: 16 QRSD: 91 T: 59 QT: 400 QTc: 444 Interpretive Statements Sinus rhythm Probable left atrial enlargement Abnormal R-wave progression, early transition Borderline ST elevation, anterolateral leads Baseline wander in lead(s) V2,V5 Please click the below link to view image of tracing.
[2025-02-21 07:50] LABS: Hematocrit 24.1 % (41.0-53.0); Mean Corpuscular Hemoglobin 27.3 pg (28.0-32.0)
[2025-02-21 07:52] LABS: Hemoglobin 7.9 g/dL (13.5-17.5); Mean Corpuscular Volume 83.5 fL (80.0-100.0)
[2025-02-21 08:21] LABS: Nucleated Red Blood Cells % 5.0 %; Total Cells Counted 100.0 (100)
[2025-02-21 08:24] LABS: Anisocytosis Moderate; Polychromasia Slight; Tear Drop Cells FEW
--- NOTE | 2025-02-21 12:51 | DVHDS2 ---
Discharge Summary Date of Admission Feb 09, 2025 at 11:59 Date of Discharge: Feb 21, 2025 Labs/Diagnostic Data: Laboratory Results Test 02/21/25 07:16 02/20/25 06:31 02/19/25 05:14 02/18/25 06:24 White Blood Count 23.9 10^3/uL (4.4-10.8) Red Blood Count 2.89 10^6/uL (4.5-5.90) Hemoglobin 7.9 g/dL (13.5-17.5) Hematocrit 24.1 % (41.0-53.0) Mean Corpuscular Volume 83.5 fL (80.0-100.0) Mean Corpuscular Hemoglobin 27.3 pg (28.0-32.0) Mean Corpuscular Hemoglobin Concent 32.7 g/dL (32.0-36.0) Red Cell Distribution Width 24.2 % (11.8-14.3) Platelet Count 104 10^3/uL (140-450) Mean Platelet Volume 8.5 fL (6.9-10.8) Neutrophils (%) (Auto) % (37.0-80.0) Lymphocytes (%) (Auto) % (10.0-50.0) Monocytes (%) (Auto) % (0.0-12.0) Basophils (%) (Auto) % (0.0-2.0) Neutrophils # (Auto) 10 ^3/uL (1.6-8.6) Lymphocytes # (Auto) 10 ^3/uL (0.4-5.4) Monocytes # (Auto) 10 ^3/uL (0-1.3) Differential Total Cells Counted 100.0 (100) Neutrophils % (Manual) 45 (37.0-80.0) Band Neutrophils % (Manual) 2 Lymphocytes % (Manual) 6 (10.0-50.0) Monocytes % (Manual) 44 (0-12) Eosinophils % (Manual) 0 (0-7) Basophils % (Manual) 0 (0.0-2.0) Metamyelocytes % (manual) 0 Myelocytes % (Manual) 0 Promyelocytes % (Manual) 0 Blast Cells % (Manual) 0 Nucleated Red Blood Cells 5.0 % Reactive Lymphocytes 3 Platelet Estimate Decreased Polychromasia Slight Poikilocytosis (manual) Slight Anisocytosis (manual) Moderate Tear Drop Cells Few Creatinine 1.16 mg/dL (0.700-1.30) Glomerular Filtration Rate Calc 70 mL/min (>90) Troponin I High Sensitivity 7 ng/L (</=54) Eosinophils (%) (Auto) 0.3 % (0.0-7.0) Eosinophils # (Auto) 0.1 10 ^3/uL (0-0.8) Basophils # (Auto) 0.1 10 ^3/uL (0-0.2) Hart Cells Few Random Vancomycin Level 10.7 ug/mL (5-10) Smudge Cells 1 /100 WBC Ovalocytes Few Schistocytes Few Sodium Level 138 mmol/L (136-145) Potassium Level 4.5 mmol/L (3.5-5.1) Chloride Level 108 mmol/L (98-107) Carbon Dioxide Level 20 mmol/L (20-31) Anion Gap 10 (5-15) Blood Urea Nitrogen 36 mg/dL (9-23) BUN/Creatinine Ratio 31.9 (10.0-20.0) Serum Glucose 185 mg/dL (74-106) Calcium Level 7.8 mg/dL (8.7-10.4) Vancomycin Level Trough 22.1 ug/mL (5-10) Large Platelets Few Test 02/16/25 07:40 02/13/25 03:50 02/12/25 04:43 02/11/25 15:26 Stomatocytes Few Magnesium Level 2.0 mg/dL (1.6-2.6) Total Bilirubin 0.3 mg/dL (0.2-1.0) Aspartate Amino Transferase (AST) 42 U/L (13-40) Alanine Aminotransferase (ALT) 25 U/L (7-40) Alkaline Phosphatase 127 U/L (46-116) Total Protein 5.0 g/dL (5.7-8.2) Albumin 3.1 g/dL (3.2-4.8) Influenza Type A Antigen Negative (Negative) Influenza Type B Antigen Negative (Negative) SARS-CoV-2 Antigen (Rapid) Negative (NEGATIVE) Test 02/11/25 11:18 02/11/25 09:10 02/10/25 00:55 02/10/25 00:23 Lactic Acid Level 2.1 mmol/L (0.4-2.0) B-Type Natriuretic Peptide 211.56 pg/mL (0-100) Blood Gas Specimen Type Arterial Blood Gas Sample Site Left radial Blood Gas Patient Temperature 37.0 Arterial Blood Date Drawn [id number] Arterial Blood pH 7.467 (7.350-7.450) Arterial Blood Partial Pressure CO2 26.0 mmHg (35.0-48.0) Arterial Blood Partial Pressure O2 70.7 mmHg (83.0-108.0) Arterial Blood HCO3 18.4 mmol/L (21.0-28.0) Arterial Blood Oxygen Saturation 93.7 % (94.0-98.0) Arterial Blood Base Excess -4.7 mmol/L (-2.0-3.0) Arterial Blood Oxyhemoglobin 92.0 % (94.0-98.0) Arterial Blood Carboxyhemoglobin 0.4 % (0.5-1.5) Arterial Blood Methemoglobin 1.4 % (0.0-1.5) Terrance Test Yes Blood Gas Total Hemoglobin 7.30 g/dL (13.5-17.5) Blood Gas Liter Flow 50.00 Blood Gas Modality High flow FiO2 % 100.0 Blood Gas Notified Time [id number] POC Glucose 108 mg/dl (70-106) Test 02/09/25 09:06 02/09/25 08:00 02/09/25 07:37 Blood Gas Critical Value Read Back Yes Blood Gas Notified Whom Petra rojas md Blood Gas Notified By Stuart kelley rrt Urine Color Light-yellow (Yellow) Urine Clarity Clear (Clear) Urine pH 7.0 (5.0-9.0) Urine Specific [place] 1.014 (1.001-1.035) Urine Protein 2+ (Negative) Urine Ketones Negative (Negative) Urine Blood Negative /uL (Negative) Urine Nitrite Negative (Negative) Urine Bilirubin Negative (Negative) Urine Urobilinogen Normal mg/dL (Negative) Urine Leukocyte Esterase Negative /uL (Negative) Urine RBC <1 /hpf (0 - 3) Urine Microscopic WBC 1 /HPF (0-3) Urine Squamous Epithelial Cells Few /hpf (<5) Urine Bacteria None seen /hpf (None Seen) Urine Glucose Normal mg/dL (Normal) Prothrombin Time 11.9 sec (9.3-11.8) Prothrombin Time INR 1.14 (0.9-1.15) Activated Partial Thromboplast Time 38.2 SEC (24.5-34.5) Other Laboratory Tests 02/21/25 07:16 02/19/25 05:14 Brief Hx & Hospital Course: 64 M with COPD, HTN, anemia rec tx, ex smoker, recent admission x2 in OSH with PNA / COPDe, admitted for same. previously discharged on po abx. s/p bronch. covered empirically, now improved. pending BAL culture. completed abx course. culture neg pending fungal. stable to dc home, o2 recs baseline. dc clinic friday. losartan discontinued for hyperK. switched to coreg Condition at Discharge: Good Final Diagnosis/Problems List acute on chronic hypoxic respiratory failure sepsis COPD exacerbation PNA gp vs gn MDS vs marrow suppression microcytic anemia hyperkalemia TIM VMN on CKD s/p 1 unit PRBC ex smoker protein calorie malnutrition pulm consult for bronch hyperK MRSA nares Discharge Disposition: Home Discharge Instruct/Medications Scheduled Amlodipine Besylate (Amlodipine Besylate), 10 MG PO DAILY, (Reported) Ferrous Sulfate (Ferosul), 1 TAB PO DAILY, (Reported) Hydrochlorothiazide (Hydrochlorothiazide), 25 MG PO DAILY, (Reported) Losartan Potassium (Losartan Potassium), 50 MG PO DAILY, (Reported) Nicotine (Nicotine Transdermal Syst), 1 PATCH TOP DAILY, (Reported) Potassium Chloride (Klor-Con 10), 10 MEQ PO DAILY, (Reported) Discharge Statement: "Patient was advised to return to the ER or call 911 if any headaches, dizziness, shortness of breath, chest pain, abdominal pain, bleeding, fevers, or worsening of medical condition. Patient was counseled about treatment plan, medications, possible side effects, patientverbalized understanding. All questions were answered to the best of my ability. This discharge took greater then 30 minutes in planning, reviewing documentation, counseling the patient, and discussing with other team members." ASSESSMENT ASSESSMENT Assessment Date of Service: Feb 21, 2025 Billing Provider: MIRANDA TRAN MD Common Visit Codes: 15926-[id number] DISCH DAY >30min MIRANDA TRAN MD Feb 21, 2025 12:51
[2025-02-21] MEDS ORDERED: CARV-216 PO (12:57)
[2025-02-21] MEDS ORDERED: FER325T PO ×2 (12:57→13:00)
[2025-02-21] MEDS ORDERED: ALBU108A5 IN ×2 (12:57→13:00)
[2025-02-21] MEDS ORDERED: TIOT17SP IN (12:57)
[2025-02-21] MEDS ORDERED: CARV-217 PO (13:00)
--- NOTE | 2025-02-21 18:10 | DVHPN2 ---
Progress Note - Dictate Date Seen: Feb 21, 2025 Has the PT tested + for MRSA If YES, has PT been informed?: No Medical Necessity Reason Pt with a Central, PICC or Fol: No vital signs Vital Sign Date Time Temp Pulse Resp B/P (MAP) Pulse Ox O2 Delivery O2 Flow Rate FiO2 02/21/25 15:12 98.1 69 20 99 02/21/25 13:00 131/86 (101) 02/21/25 12:18 Nasal Cannula* 3 32 Total Intake and Output 02/20/25 02/20/25 02/21/25 15:00 23:00 07:00 Intake Total 890 ml 1940 ml Output Total 800 ml 4 ml Balance 90 ml 1936 ml medications Current Medications Medications Dose Ordered Sig/Raulito Route Start Time Stop Time Status Last Admin Dose Admin Albuterol 2.5 mg Q6HWA NEB 02/09/25 12:00 02/21/25 12:18 2.5 MG Ipratropium [place] 0.5 mg Q6HWA NEB 02/09/25 12:00 02/21/25 12:18 0.5 MG Acetaminophen 650 mg Q6HP PRN PO 02/09/25 12:00 02/09/25 23:23 650 MG Nicotine 1 patch DAILY TD 02/10/25 10:00 02/20/25 09:37 1 PATCH Patient Own Medication 1 tab DAILY PO 02/10/25 10:00 UNV Ferrous Sulfate 325 mg DAILY PO 02/10/25 10:00 02/21/25 09:30 325 MG Guaifenesin/ Codeine Phosphate 10 ml Q4HPRN PRN PO 02/10/25 19:00 02/20/25 21:49 10 ML Budesonide 0.5 mg BID NEB 02/10/25 22:00 02/21/25 06:21 0.5 MG Vancomycin HCl 0 ml @ 0 mls/hr UD IV 02/11/25 09:30 Doxycycline Hyclate 100 ml @ 50 mls/hr Q12H IV 02/11/25 10:30 02/21/25 11:19 50 MLS/HR Baclofen 5 mg Q8HP PRN PO 02/11/25 18:00 02/21/25 11:33 5 MG Hydrochlorothiazide 25 mg DAILY PO 02/12/25 10:00 02/21/25 09:32 25 MG Amlodipine Besylate 10 mg DAILY PO 02/12/25 10:00 02/21/25 09:32 10 MG Loratadine 10 mg DAILY PO 02/17/25 10:00 02/21/25 09:43 10 MG Carvedilol 25 mg Q12HR PO 02/17/25 22:00 02/21/25 09:31 25 MG Methylprednisolone Sodium Succinate 40 mg Q8HR IV 02/19/25 14:00 02/21/25 05:27 40 MG Cefepime HCl 50 ml @ 12.5 mls/hr Q8H IV 02/20/25 18:00 02/21/25 09:35 12.5 MLS/HR Vancomycin HCl 100 ml @ 100 mls/hr Q12H IV 02/20/25 16:00 02/21/25 15:48 100 MLS/HR laboratory and microbiology Laboratory Tests 02/21/25 07:16 02/19/25 05:14 Test 02/19/25 05:14 Range/Units Serum Glucose 185 H 74-106 mg/dL Assessment/Plan Acute hypoxic respiratory failure Pneumonia, likely gram negative Nicotine dependence Cachexia, BMI 17.5 Anemia, iron deficiency Leucocytosis Metabolic acidosis Events: Remains on supplemental oxygen On 3 LPM NC no distress Status post bronchoscopy with BAL Plan: Supplemental oxygen Keep o2 saturation above 92% IV steroids Bronchodilators Continue abx Blood cultures: No growth thus far. Monitor WBC Monitor hgb - stable. Iron supplementation. Nutritional support Monitor renal function. Monitor electrolytes. Supplement as necessary. DVT prophylaxis Dietary Evaluation Review Recommendations by RD: Increase Calorie Intake Comments: 1) Initiate Ensure Enlive bid 2) Encourage optimal PO intake 3) Follow-up with cardiology, pulmonology, and nephrology 4) Continue to monitor I&O, labs, and skin integrity Expected Outcomes/Goals: 1) appetite and labs to improve 2) f/u in 3-5 days Plan discussed with: Patient CC Plasma Assessment Blood Product Administration S: [id number] CATE VICENTE MD Feb 21, 2025 18:10
[2025-02-23] MEDS ORDERED: TIOT17SP IN (20:23)
== END 2025-02-21 15:48 | disposition home or self-care (01) | DRG 871 ==
LOC: EDBD 07:06 → ER 07:06 → OVERFLOW 11:59 → DOU IN ICU 02-11 15:10 → ICU CENTRL 02-11 15:11 → TELE-EAST 02-14 02:55 → EAST 02-17 12:35
PROVIDERS: ADMIT Student in an Organized Health Care Education/Training Program; ATTEND Student in an Organized Health Care Education/Training Program
PROC: 5A0935A Assistance with Respiratory Ventilation, Less than 24 Consecutive Hours, High Flow/Velocity Cannula (ICD-10-PCS; 2025-02-09)
PROC: 30233N1 Transfusion of Nonautologous Red Blood Cells into Peripheral Vein, Percutaneous Approach (ICD-10-PCS; principal; 2025-02-10)
PROC: 5A0935A Assistance with Respiratory Ventilation, Less than 24 Consecutive Hours, High Flow/Velocity Cannula (ICD-10-PCS; 2025-02-10)
PROC: 5A0935A Assistance with Respiratory Ventilation, Less than 24 Consecutive Hours, High Flow/Velocity Cannula (ICD-10-PCS; 2025-02-11)
PROC: 0BC78ZZ Extirpation of Matter from Left Main Bronchus, Via Natural or Artificial Opening Endoscopic (ICD-10-PCS; 2025-02-15)
PROC: 0B9D8ZX Drainage of Right Middle Lung Lobe, Via Natural or Artificial Opening Endoscopic, Diagnostic (ICD-10-PCS; 2025-02-15)
PROC: 0BDD8ZX Extraction of Right Middle Lung Lobe, Via Natural or Artificial Opening Endoscopic, Diagnostic (ICD-10-PCS; 2025-02-15)
PROC: 0BC38ZZ Extirpation of Matter from Right Main Bronchus, Via Natural or Artificial Opening Endoscopic (ICD-10-PCS; 2025-02-15)
DX: A41.9 Sepsis, unspecified organism (principal); J15.69 Pneumonia due to other Gram-negative bacteria; N17.0 Acute kidney failure with tubular necrosis; J96.21 Acute and chronic respiratory failure with hypoxia; J15.9 Unspecified bacterial pneumonia; E87.20 Acidosis, unspecified; E46 Unspecified protein-calorie malnutrition; J44.0 Chronic obstructive pulmonary disease with (acute) lower respiratory infection; J44.1 Chronic obstructive pulmonary disease with (acute) exacerbation; Z68.1 Body mass index [BMI] 19.9 or less, adult; J84.9 Interstitial pulmonary disease, unspecified; D46.9 Myelodysplastic syndrome, unspecified; Z20.822 Contact with and (suspected) exposure to COVID-19; E87.5 Hyperkalemia; D69.6 Thrombocytopenia, unspecified; Z99.81 Dependence on supplemental oxygen; N18.9 Chronic kidney disease, unspecified; D50.9 Iron deficiency anemia, unspecified; I12.9 Hypertensive chronic kidney disease with stage 1 through stage 4 chronic kidney disease, or unspecified chronic kidney disease; F17.210 Nicotine dependence, cigarettes, uncomplicated; Z79.899 Other long term (current) drug therapy
CPT/HCPCS: 31623; 31624; 36415; 36600; 71045; 80048; 80053; 80202; 81001; 82565; 82805; 82962; 83605; 83735; 83880; 84484; 85007; 85025; 85027; 85610; 85730; 86850; 86900; 86901; 86920; 87040; 87070; 87081; 87205; 87426; 87804; 93005; 94640; 96361; 96365; 96375; 97110; 97116; 97163; 97530; 99291; 99292; G0378; J0131; J0692; J2250; J2405

== ENCOUNTER 2025-02-26 11:32 | Inpatient (IN) | payer MEDICARE, MEDICAID ==
[~2025-02-26] VITALS: Ht 180.3 cm; Wt 60.3 kg
[~2025-02-26 11:32] MED LIST: ALBU108A5 IN; AMLO1TAB23 PO; CARV-217 PO; FER325T PO; FERR325T20 PO; HYDR25TA4 PO; NICO21DI37 TOP; TIOT17SP IN
[2025-02-26 12:00] VITALS: PULSE 68; RESP 12; O2SAT 99
--- NOTE | 2025-02-26 12:01 | ED.PDOC ---
HPI (NEURO) HPI Comments This is a 64 year-old male, with a Hx of Anemia, HTN, and COPD, who presents to the ED via EMS S/P syncopal episode today. Per , patient was discharged from the hospital earlier in the week, approximally 5 days ago for multiple issues, specific issues unknown. reports that the patient went out for the 1st time today, to breakfast, since last discharged. states patient passed out on the way to the [employer] register, where 911 was called immediately. Patient reports feeling lightheaded and dizzy this morning. Per , patient has been eating and drinking okay at home. At this time, there are no further complaints. Patient otherwise denies any head trauma, neck pain, back pain, N/V/D, dizzin ess, or headache. Chief Complaint: Syncope Time Seen by MD: 11:55 Primary Care Provider: UNKNOWN Reviewed Notes: Medications, Allergies Information Source: Patient, Spouse Mode of Arrival: EMS Severity: Moderate Timing: Hours Prehospital treatment: None Circumstances: Spontaneous Associated Signs and Symptoms: Other (Syncope, lightheaded, dizzy ) Past Medical History PAST MEDICAL HISTORY: Anemia, HTN Surgical History: Denies all surgeries Family History Family History: Reviewed,noncontributory to illness, Unknown Social History Smoker: Cigarettes Alcohol: Denies ETOH Use Drugs: Denies Drug Use Lives In: Home Constitutional: denies: chills, diaphoresis, fatigue, fever, malaise, sweats, weakness, others EENTM: denies: blurred vision, double vision, ear bleeding, ear discharge, ear drainage, ear pain, ear ringing, eye pain, eye redness, hearing loss, mouth pain, mouth swelling, nasal discharge, nose bleeding, nose congestion, nose pain, photophobia, tearing, throat pain, throat swelling, voice changes, others Respiratory: denies: cough, hemoptysis, orthopnea, SOB at rest, shortness of breath, SOB with excertion, stridor, wheezing, others Cardiovascular: denies: chest pain, dizzy spells, diaphoresis, Dyspnea on exertion, edema, irregular heart beat, left arm pain, lightheadedness, palpitations, PND, syncope, others Gastrointestinal: denies: abdomen distended, abdominal pain, blood streaked bowels, constipated, diarrhea, dysphagia, difficulty swallowing, hematemesis, melena, nausea, poor appetite, poor fluid intake, rectal bleeding, rectal pain, vomiting, others Genitourinary: denies: burning, dysuria, flank pain, frequency, hematuria, incontinence, penile discharge, penile sore, pain, testicle pain, testicle swell ing, urgency, others Neurological: reports: dizziness, fainting, others (lightheadedness); denies: headache, left sided numbness, left sided weakness, numbness, paresthesia, pre- existing deficit, right sided numbness, right sided weakness, seizure, speech problems, tingling, tremors, weakness Musculoskeletal: denies: back pain, gout, joint pain, joint swelling, muscle pain, muscle stiffness, neck pain, others Integumetry: denies: bruises, change in color, change in hair/nails, dryness, laceration, lesions, lumps, rash, wounds, others Allergic/Immunocompromised: denies: Difficulty Healing, Frequent Infections, Hives, Itching, others Hematologic/Lymphatic: denies: anemia, blood clots, easy bleeding, easy bruising, swollen glands, others Endocrine: denies: excessive hunger, excessive sweating, excessive thirst, excessive urination, flushing, intolerance to cold, intolerance to heat, unexplained weight gain, unexplained weight loss, others Psychiatric: denies: anxiety, bipolar disorder, depression, hopeless, panic disorder, schizophrenia, sleepless, suicidal, others All Other Systems: Reviewed and Negative Physical Exam General Appearance: Thin, Other (Patient currently on 4 L nasal cannula) HEENT: Normal ENT Inspection, Pharynx Normal, TMs Normal Neck: Full Range of Motion, Non-Tender, Normal, Normal Inspection Respiratory: Chest Non-Tender, Lungs Clear, No Accessory Muscle Use, No Respiratory Distress, Normal Breath Sounds Cardiovascular: No Edema, No JVD, No Murmur, No Gallop, Normal Peripheral Pulses, Regular Rate/Rhythm Breast Exam: Deferred Gastrointestinal: No Organomegaly, Non Tender, No Pulsatile Mass, Normal Bowel Sounds, Soft Genitalia: Deferred Pelvic: Deferred Rectal: Deferred Extremities: Other (No pitting edema bilateral lower extremities, nontender CT and L-spine) Musculoskeletal : Apperance: Normal Neurologic: Alert, tail dogger II-XII nml as Tested, No Motor Deficits, Normal Affect, Normal Mood, No Sensory Deficits Cerebellar Function: Normal Reflexes: Normal Skin: Dry, Normal Color, Warm Lymphatic: No Adenopathy EKG EKG : Comments Pacemaker spikes sinus rhythm rate of [address] changes Was a procedure done? Was a procedure done?: No Differential Diagnosis (SZ) Seizure: Closed Head Injury, CVA/TIA, Syncope General Weakness: Anemia, Dehydration, Electrolyte imbalance, Hypoglycemia, Hypotension, Hypovolemia, Pulmonary embolus X-Ray, Labs, Meds, VS Vital Signs Date Time Temp Pulse Resp B/P (MAP) Pulse Ox O2 Delivery O2 Flow Rate FiO2 02/26/25 12:30 73 12 97 02/26/25 12:00 68 12 109/60 (76) 99 02/26/25 12:00 68 12 99 Nasal Cannula* 3 32 02/26/25 11:32 97.5 66 18 124/80 97 97.5 Lab Test 02/26/25 12:34 Range/Units White Blood Count 8.5 # 4.4-10.8 10^3/uL Red Blood Count 2.42 L 4.5-5.90 10^6/uL Hemoglobin 6.7 #*L 13.5-17.5 g/dL Hematocrit 20.5 #L 41.0-53.0 % Mean Corpuscular Volume 84.6 80.0-100.0 fL Mean Corpuscular Hemoglobin 27.5 L 28.0-32.0 pg Mean Corpuscular Hemoglobin Concent 32.5 32.0-36.0 g/dL Red Cell Distribution Width 24.5 H 11.8-14.3 % Platelet Count 39 #L 140-450 10^3/uL Mean Platelet Volume 8.4 6.9-10.8 fL Neutrophils (%) (Auto) 37.0-80.0 % Lymphocytes (%) (Auto) 10.0-50.0 % Monocytes (%) (Auto) 0.0-12.0 % Basophils (%) (Auto) 0.0-2.0 % Neutrophils # (Auto) 1.6-8.6 10 ^3/uL Lymphocytes # (Auto) 0.4-5.4 10 ^3/uL Monocytes # (Auto) 0-1.3 10 ^3/uL Differential Total Cells Counted 100.0 100 Neutrophils % (Manual) 54 37.0-80.0 Band Neutrophils % (Manual) 4 Lymphocytes % (Manual) 17 10.0-50.0 Monocytes % (Manual) 23 H 0-12 Eosinophils % (Manual) 1 0-7 Basophils % (Manual) 0 0.0-2.0 Metamyelocytes % (manual) 0 Myelocytes % (Manual) 1 Promyelocytes % (Manual) 0 Blast Cells % (Manual) 0 Reactive Lymphocytes 0 Platelet Estimate Decreased Anisocytosis (manual) Moderate Ovalocytes Few Sodium Level 141 136-145 mmol/L Potassium Level 4.6 3.5-5.1 mmol/L Chloride Level 107 98-107 mmol/L Carbon Dioxide Level 24 20-31 mmol/L Anion Gap 10 5-15 Blood Urea Nitrogen 33 H 9-23 mg/dL Creatinine 1.24 0.700-1.30 mg/dL Glomerular Filtration Rate Calc 65 >90 mL/min BUN/Creatinine Ratio 26.6 H 10.0-20.0 Serum Glucose 123 H 74-106 mg/dL Calcium Level 7.5 L 8.7-10.4 mg/dL Troponin I High Sensitivity 6 </=54 ng/L [place] [id number] Ph: [phone] DIAGNOSTIC IMAGING Diagnostic Imaging Report : [id number] Signed PATIENT: COOPER ANN ACCT: [id number] UNIT: [id number] : 1960 LOC: OVERFLOW ROOM / BED: [address] [place] [address] / AGE / SEX: 64 / M ADM STATUS: ADM IN SERVICE 1159 ORDERING PHYSICIAN: ALEXANDRA DANIEL MD PROCEDURE(s): CXRP - CHEST PORTABLE REASON: Syncope ORDER NUMBER(s): [id number], ACCESSION NUMBER(s): [id number] CHEST RADIOGRAPH Indication: Syncope Technique: Single frontal view of the chest was obtained COMPARISON: XY CHEST XRAY 1 VIEW on DOS: 02/19/25, XY CHEST XRAY 1 VIEW on DOS: 02/15/25, XY CHEST PORTABLE on DOS: 02/12/25, XY CHEST PORTABLE on DOS: 02/09/25, XR CHEST 1 VIEW on DOS: 01/31/25 FINDINGS: Lines and Tubes: None Lungs: Clear Pleura: No effusion. No pneumothorax. Cardiomediastinal contours: Unremarkable Bones: Unremarkable IMPRESSION: 1. No acute disease. 64-year-old male presents here status post syncopal episode. states that patient was just discharged from the hospital earlier in the week proximally 5 days ago for multiple issues and she does not know exactly. She states today for the 1st time they went out to breakfast. Upon getting to a vault cashier patient has started to black out. 911 was immediately called. Patient states he has been eating and drinking okay at home. His EKG today demonstrates normal sinus rhythm with no significant ST changes. Patient did not hit his head. There was no head trauma. Denies any neck or back pain. At this time given his syncopal episode I am concerned about acute arrhythmia. He also has a history of anemia in the past requiring multiple blood transfusions. I have ordered a CBC, BMP, troponin, urinalysis chest x-ray and EKG. CBC with a hemoglobin of 6.7, BMP with evidence of acute kidney injury. Troponin is negative. Chest x-ray with no evidence of infection. Patient unable to provide urine. EKG with no significant ST changes. At this time suspect the cause of the syncope could be related to significant anemia. Blood transfusion has been written for. I have consented the patient who has agreed to transfusion. Hospitalist team has been contacted. Images Reviewed?: Images reviewed and evaluated by me Time of 1ST Reevaluation: 13:04 Reevaluation 1ST: Unchanged Patient Education/Counseling: Diagnosis, Treatment Family Education/Counseling: Diagnosis, Treatment Departure 1 Departure Time of Disposition: 14:22 Impression: Primary Impression: Syncope Qualified Codes: R55 - Syncope and collapse Additional Impression: Anemia Qualified Codes: D64.9 - Anemia, unspecified Disposition: 09 ADMITTED INPATIENT Condition: Fair Critical Care Note Critical Care Time?: Yes (35 min-critical care time only) Critical care comment: Concern for immediate deterioration of patient's circulatory system. Patient found to be anemic at 6.7. I am spent speaking to patient speaking to family regarding treatment plan and consent for blood, speaking to hospitalist team Stability Stability form required: No Heart Score Heart Score: Heart Score Response (Comments) Value History Slightly Suspicious 0 EKG Normal 0 Age >65 2 Risk Factors 1 or 2 risk factors 1 Troponin Normal limit 0 Total 3 I personally scribed for ALEXANDRA DANIEL MD ([facility]) on 02/26/25 at 12:21. Electronically submitted by Ayesha Acevedo ([employer]). I personally scribed for ALEXANDRA DANIEL MD ([facility]) on 02/26/25 at 12:35. Electronically submitted by Ayesha Acevedo ([employer]). I personally scribed for ALEXANDRA DANIEL MD ([facility]) on 02/26/25 at 13:29. Electronically submitted by Ayesha Acevedo ([employer]). I personally scribed for ALEXANDRA DANIEL MD ([facility]) on 02/26/25 at 16:36. Electronically submitted by Ayesha Acevedo ([employer]). ALEXANDRA DANIEL MD Feb 26, 2025 12:01
--- NOTE | 2025-02-26 12:40 | DVHHP2 ---
History of Present Illness Reason for Visit: Syncope History of Present Illness Chan Oneal is a 64-year-old male with past medical history of bone marrow biopsy, hypertension, anemia with blood transfusions, and COPD on home oxygen who presents to the ED with a syncopal episode. Patient reports that he was eating breakfast this morning with his and when he was utilizing his walker he stated that he felt tired which then he sat on his walker. He denies any loss of consciousness or any head strike. He reports that he called EMS for assistance shortly afterwards. Patient was recently here at [facility] and discharged. Patient's Elin at the bedside and does report that he had a bone marrow biopsy with results given to her however she states that she does not understand. She does report that she is supposed to see a screwmaker automatic however has not been able to get an appointment due to the change of insurance from [facility] up to this area. Patient also reports that he is on home oxygen 3-4 L via nasal cannula. Prior to his hospitalization at [facility] his reports that he was at [facility]. Patient denies any recent trauma or injury, recent sick contacts, recent travels, recent ingestion of spoiled food, chest pain, shortness of breath, fever, chills, abdominal pain, nausea, vomiting, diarrhea, or urinary symptoms. Cardiovascular: HTN Pulmonary: COPD Heme/Onc: Anemia NOS Past Surgical History: Other (Bone marrow biopsy) Family History: None Smoke: Quit ALCOHOL: none Drugs: None Lives: with Family Domestic Violence: Neg Review of Systems Constitutional: Yes: Other (Syncope) Allergies: Coded Allergies: NO KNOWN ALLERGIES (Unverified , 02/01/20) Exam Vital Signs Vital Signs Date Time Temp Pulse Resp B/P (MAP) Pulse Ox O2 Delivery O2 Flow Rate FiO2 02/26/25 11:32 97.5 66 18 124/80 97 97.5 General Appearance: Alert, Oriented X3, Cooperative, No acute distress HEENT: Atraumatic, PERRLA, EOMI, Mucous membr. moist/pink Respiratory: Normal air movement Cardiovascular: Regular rate, Normal S1, Normal S2 Abdominal: Normal bowel sounds, Soft Extremities: No edema, Normal pulses Neuro: Normal speech, Strength at 5/5 X4 ext, Normal tone, Sensation intact Psych/Mental Status: Mental status NL, Mood NL Labs/Xrays CLINICAL HISTORY: syncope TECHNIQUE: Helical scanning was performed of the head from the skull base to the vertex. Multiplanar reconstructions were performed. This exam was performed according to our departmental dose optimization program. Up-to-date CT equipment and radiation dose reduction techniques are utilized as appropriate. CTDI 56 DLP 902 COMPARISON: CT BRAIN on DOS: 04/12/21, HEAD WITHOUT CONTRAST on DOS: 04/11/21 FINDINGS: There is no evidence for acute intracranial hemorrhage, acute ischemic changes, mass, mass effect, or extra-axial fluid collection. There is no hydrocephalus or midline shift. There is no effacement of the cerebral sulci and basal subarachnoid cisterns. The granger-white matter differentiation is well maintained. There is mild brain volume loss. 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 The imaged paranasal sinuses are clear. IMPRESSION: NO ACUTE INTRACRANIAL ABNORMALITY SEEN. CLINICAL HISTORY: r/o stenosis TECHNIQUE: Granger-scale, Color and Duplex Doppler imaging of the bilateral carotid systems was performed. COMPARISON: None Findings: Right Carotid system: There is plaque present in the right carotid system. Left Carotid system: There is plaque present in the left carotid system. The following flow velocities were obtained (cm/sec). Right Carotid System: ICA PSV: 127 cm/sec ICA PDV: 42 cm/sec ICA/CCA Ratio: 1.2 Left Carotid System: ICA PSV: 131 cm/sec ICA PDV: 53 cm/sec ICA/CCA Ratio: 75 The right and left common carotid and external carotid arteries are patent. There is antegrade flow in both vertebral arteries and external carotid arteries. IMPRESSION: 50-69% RIGHT ICA NARROWING. 50-69% LEFT ICA NARROWING. CHEST RADIOGRAPH Indication: Syncope Technique: Single frontal view of the chest was obtained COMPARISON: XY CHEST XRAY 1 VIEW on DOS: 02/19/25, XY CHEST XRAY 1 VIEW on DOS: 02/15/25, XY CHEST PORTABLE on DOS: 02/12/25, XY CHEST PORTABLE on DOS: 02/09/25, XR CHEST 1 VIEW on DOS: 01/31/25 FINDINGS: Lines and Tubes: None Lungs: Clear Pleura: No effusion. No pneumothorax. Cardiomediastinal contours: Unremarkable Bones: Unremarkable IMPRESSION: 1. No acute disease. SEPSIS Sepsis Screen Date sepsis recognized/suspect: Feb 26, 2025 Time Sepsis recognized/suspect: 1130 Recent Procedure: No On Antibiotic Therapy: No Respiratory Rate >20: No Heart Rate >90: No Temp<36 C (96.8 F) or >38.3 C: No SBP <90 or MAP <65 mmHG: No New Acute Mental Status Change: No Is the patient on CPAP, BIPAP,: No Physician Orders Complete Blood Count (02/26/25 11:59) Basic Metabolic Panel (02/26/25 11:59) Troponin-I Hs (02/26/25 11:59) Troponin-I Hs (02/26/25 12:59) Troponin-I Hs (02/26/25 14:59) Chest Portable (02/26/25 11:59) Vital Signs Date Time Temp Pulse Resp B/P (MAP) Pulse Ox O2 Delivery O2 Flow Rate FiO2 02/26/25 11:32 97.5 66 18 124/80 97 97.5 Assessment/Plan Assessment/Plan Assessment Autonomic imbalance Severe anemia requiring blood transfusions Thrombocytopenia 50-69% RIGHT ICA NARROWING 50-69% LEFT ICA NARROWING History of COPD on home oxygen 3-4 L via nasal cannula History of hypertension History of anemia requiring blood transfusions History of tobacco use History of bone marrow biopsy Plan Admit to [facility] surge Type and screen Transfuse PRBCs for hemoglobin less than 7.0 Supplemental oxygen UA UDS Chest x-ray Troponin Labs pending Orthostatics CT head Carotid ultrasound Influenza test COVID test Chest x-ray Diet Home medications reconciled Prophylaxis-SCDs PUD prophylaxis-not indicated no history of GERD or GI bleed Discussed plan of care with patient, patient's , and nurse Rounding hospitalist to consider vascular surgery for right and left ICA narrowing Counseled patient on continuous of cessation of tobacco use [id number] Behavior change smoking greater than 10 minutes about use of other options also gave option of nicotine patch [phone] Preventive counseling healthy eating habits, physical activity, and regular checkups Plan discussed with: Patient, Spouse Date of Service: Feb 26, 2025 Billing Provider: RAYSHAWN BLOCK Common Visit Codes: [id number] INP/OBS CARE (HIGH) Secondary Visit Codes: [id number] COUNSELING IND RAYSHAWN BLOCK Feb 26, 2025 12:40
[2025-02-26] MEDS ORDERED: ONDANSETRON HCL 4 MG/2 ML VIAL IV PRN (12:45)
--- NOTE | 2025-02-26 12:47 | DVH ---
CHEST RADIOGRAPH Indication: Syncope Technique: Single frontal view of the chest was obtained COMPARISON: XY CHEST XRAY 1 VIEW on DOS: 02/19/25, XY CHEST XRAY 1 VIEW on DOS: 02/15/25, XY CHEST PORT ABLE on DOS: 02/12/25, XY CHEST PORTABLE on DOS: 02/09/25, XR CHEST 1 VIEW on DOS: 01/31/25 FINDINGS: Lines and Tubes: None Lungs: Clear Pleura: No effusion. No pneumothorax. Cardiomediastinal contours: Unremarkable Bones: Unremarkable IMPRESSION: 1. No acute disease.
[2025-02-26 13:11] LABS: Chloride 107 mmol/L (98-107); Potassium 4.6 mmol/L (3.5-5.1); Sodium 141 mmol/L (136-145)
[2025-02-26 13:12] LABS: Anion Gap 10 (5-15); Carbon Dioxide 24 mmol/L (20-31)
[2025-02-26 13:17] LABS: BUN/Creatinine Ratio 26.6 (10.0-20.0)
[2025-02-26 13:26] LABS: Blood Urea Nitrogen 33 mg/dL (9-23); Calcium 7.5 mg/dL (8.7-10.4); Glucose 123 mg/dL (74-106)
--- NOTE | 2025-02-26 13:31 | DVH ---
CLINICAL HISTORY: syncope TECHNIQUE: Helical scanning was performed of the head from the skull base to the vertex. Multiplanar reconstructions were performed. This exam was performed according to our departmental dose optimizat ion program. Up-to-date CT equipment and radiation dose reduction techniques are utilized as appropri ate. CTDI 56 DLP 902 COMPARISON: CT BRAIN on DOS: 04/12/21, HEAD WITHOUT CONTRAST on DOS: 04/11/21 FINDINGS: There is no evidence for acute intracranial hemorrhage, acute ischemic changes, mass, mass effect, or extra-axial fluid collection. There is no hydrocephalus or midline shift. There is no effacement of the cerebral sulci and basal subarachnoid cisterns. The prieto-white matter differentiation is well kimberly ntained. There is mild brain volume loss. 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 The imaged paranasal sinuses are clear. IMPRESSION: NO ACUTE INTRACRANIAL ABNORMALITY SEEN.
[2025-02-26 13:33] LABS: Hematocrit 20.5 % (41.0-53.0); Mean Corpuscular Hemoglobin 27.5 pg (28.0-32.0); Mean Corpuscular Volume 84.6 fL (80.0-100.0)
--- NOTE | 2025-02-26 13:33 | DVH ---
CLINICAL HISTORY: r/o stenosis TECHNIQUE: Granger-scale, Color and Duplex Doppler imaging of the bilateral carotid systems was performe d. COMPARISON: None Findings: Right Carotid system: There is plaque present in the right carotid system. Left Carotid system: There is plaque present in the left carotid system. The following flow velocities were obtained (cm/sec). Right Carotid System: ICA PSV: 127 cm/sec ICA PDV: 42 cm/sec ICA/CCA Ratio: 1.2 Left Carotid System: ICA PSV: 131 cm/sec ICA PDV: 53 cm/sec ICA/CCA Ratio: 75 The right and left common carotid and external carotid arteries are patent. There is antegrade flow i n both vertebral arteries and external carotid arteries. IMPRESSION: 50-69% RIGHT ICA NARROWING. 50-69% LEFT ICA NARROWING. Estimation of carotid stenosis is based on velocity parameters that correlate the residual internal c arotid diameter with that of the more distal vessel in accordance with the [place] Symptomatic Carotid Endarterectomy Trial (NASCET).
[2025-02-26 13:36] LABS: Hemoglobin 6.7 g/dL (13.5-17.5)
[2025-02-26 13:51] LABS: Anisocytosis Moderate; Ovalocytes FEW; Total Cells Counted 100.0 (100)
[2025-02-26 14:10] LABS: COVID19 ANTIGEN SOFIA FIA NEGATIVE (NEGATIVE)
[2025-02-26 16:09] LABS: Iron 46.0 ug/dL (65-175); Total Iron Binding Capacity 189.0 ug/dL (250-425)
[2025-02-26 18:15] VITALS: BP 123/65; PULSE 77; RESP 22; TEMP 98.5
[2025-02-26 18:45] VITALS: BP 124/70; PULSE 76; RESP 22; TEMP 99.3
[2025-02-26 20:10] LABS: Urine Protein, UAD 2+ (Negative)
[2025-02-26 20:34] LABS: Amphetamine Screen, Urine Neg (NEGATIVE); Barbiturate Scree,Urine Neg (NEGATIVE); Benzodiazephine Screen, Urine Neg (NEGATIVE); Cannabinoid Screen, Urine Neg (NEGATIVE); Cocaine Screen, Urine Neg (NEGATIVE); Opiate Scree,Urine Neg (NEGATIVE); Phencyclidine Screen, Urine Neg (NEGATIVE)
[2025-02-26 20:53] VITALS: PULSE 77; RESP 18; O2SAT 97
[2025-02-26 21:00] VITALS: BP 125/69; PULSE 77; RESP 18; TEMP 98.1
[2025-02-26 21:55] VITALS: BP_SYST 148; BP_DIAS 79; BP_DIAS 82; PULSE 79; RESP 18; TEMP 98.4; O2SAT 97
[2025-02-26] MEDS: CARVEDILOL 12.5 MG TAB PO SCH (22:16)
[2025-02-27] VITALS (9 sets, daily range): BP systolic 117–139; BP diastolic 70–85; PULSE 69–77; RESP 16–20; TEMP 97.3–98.4; O2SAT 93–97
[2025-02-27 06:31] LABS: Hemoglobin 7.6 g/dL (13.5-17.5)
[2025-02-27 06:34] LABS: Hematocrit 22.4 % (41.0-53.0); Mean Corpuscular Hemoglobin 27.8 pg (28.0-32.0); Mean Corpuscular Volume 82.6 fL (80.0-100.0)
[2025-02-27 06:50] LABS: Alanine Aminotransferase 21 U/L (7-40); Alkaline Phosphatase 83 U/L (46-116); Anion Gap 11 (5-15); BUN/Creatinine Ratio 25.2 (10.0-20.0); Bilirubin, Total 0.4 mg/dL (0.2-1.0); Carbon Dioxide 20 mmol/L (20-31); Glucose 100 mg/dL (74-106); Potassium 4.2 mmol/L (3.5-5.1); Sodium 138 mmol/L (136-145)
[2025-02-27 06:52] LABS: Albumin 2.9 g/dL (3.2-4.8); Blood Urea Nitrogen 28 mg/dL (9-23); Calcium 7.4 mg/dL (8.7-10.4); Chloride 107 mmol/L (98-107); Total Protein 4.5 g/dL (5.7-8.2)
[2025-02-27 07:41] LABS: Nucleated Red Blood Cells % 3.0 %; Total Cells Counted 100.0 (100)
[2025-02-27 07:42] LABS: Anisocytosis Moderate
[2025-02-27] MEDS: FERROUS SULFATE 325mg EC TAB PO SCH (09:33)
[2025-02-27] MEDS: NICOTINE 21MG/24 HR TOPICAL PATCH TD SCH (09:34)
[2025-02-27] MEDS: hydroCHLOROthiazide 25 MG TAB PO SCH (09:34)
--- NOTE | 2025-02-27 13:49 | DVHPN2 ---
Assessment/Plan Assessment/Plan progress note 64 M with COPD, HTN, anemia rec tx, ex smoker, recent admission x2 in OSH with PNA / COPDe, admitted for same. previously discharged on po abx. s/p bronch. covered empirically, now improved. pending BAL culture seen today, titrate spo2 to >92. hb 6.9, transfuse 1 unit. c/w PT for effort tolerance improvement Physical exam AOx4 comfortable in NC no JVD PERRLA MMM S1 S2 RRR no murmur b/l coarse rhonchi abdomen soft nontender no LE edema labs ekg imaging reviewed bone marrow from 01/21/25 hypocellular marrow, minimal fibrosis and fatty marrow replacement, no iron stores, mild reticulin fibrosis MRSA neg BAL culture negative assessment and plan anemia MDS req transfusion syncope from above chronic hypoxic respiratory failure COPD not on exacerbation MDS vs marrow suppression microcytic anemia CKD 2 s/p 1 unit PRBC ex smoker protein calorie malnutrition muscle spasm HTN tele resume home meds s/p PRBC maintain hb >7 HemOnc consult considering EPO vs luspatercept keep spo2 >92 nebs diet cardiac dvt ppx hold full code Plan discussed with: Patient My Orders Orders - MIRANDA TRAN MD Procedure Category Date Status Time Gastric Occult Blood LAB 02/27/25 Logged 09:36 Fluticasone Nasal PHA 02/27/25 In Process [place] (Flonase [place]) 22:00 Loratadine Tablet PHA 02/28/25 In Process (Claritin Tablet) 10:00 Baclofen Tablet PHA 02/27/25 Logged (Liorisal Tablet) 14:00 Complete Blood Count LAB 02/28/25 Verified 04:00 Magnesium LAB 02/28/25 Verified 04:00 Phosphorus LAB 02/28/25 Verified 04:00 Comprehensive LAB 02/28/25 Verified Metabolic Panel 04:00 Date of Service: Feb 27, 2025 Billing Provider: MIRANDA TRAN MD Common Visit Codes: [id number] INP/OBS CARE(HIGH) MIRANDA TRAN MD Feb 27, 2025 13:49
[2025-02-27] MEDS: BACLOFEN 10 MG TAB PO SCH (13:56)
[2025-02-27] MEDS ORDERED: IPRATROPIUM BROM 0.5 MG/2.5ML INH SOL NEB PRN (14:00)
[2025-02-27] MEDS ORDERED: ALBUTEROL SULF 2.5 MG/0.5ML(0.5%) NEB SOLN NEB PRN (14:00)
[2025-02-27] MEDS: FLUTICASONE PROP NASAL SPR 0.05 % (50MCG) 16GM EACHNOSTRI SCH (16:14)
[2025-02-27] MEDS ORDERED: FLUTICASONE PROP NASAL SPR 0.05 % (50MCG) 16GM EACHNOSTRI SCH (22:00)
[2025-02-28] VITALS (9 sets, daily range): BP systolic 125–137; BP diastolic 69–87; PULSE 67–73; RESP 16–19; TEMP 98.1–99.5; O2SAT 96–97
[2025-02-28] MEDS: LORATADINE 10 MG TAB PO SCH (09:50)
[2025-02-28 14:04] LABS: Hematocrit 21.5 % (41.0-53.0); Hemoglobin 7.1 g/dL (13.5-17.5); Mean Corpuscular Hemoglobin 27.7 pg (28.0-32.0); Mean Corpuscular Volume 83.4 fL (80.0-100.0)
[2025-02-28 14:18] LABS: Alanine Aminotransferase 17 U/L (7-40); Alkaline Phosphatase 77 U/L (46-116); Anion Gap 9 (5-15); BUN/Creatinine Ratio 20.8 (10.0-20.0); Blood Urea Nitrogen 22 mg/dL (9-23); Carbon Dioxide 23 mmol/L (20-31); Chloride 105 mmol/L (98-107); Magnesium 1.8 mg/dL (1.6-2.6); Potassium 4.3 mmol/L (3.5-5.1); Sodium 137 mmol/L (136-145)
[2025-02-28 14:19] LABS: Bilirubin, Total 0.4 mg/dL (0.2-1.0)
[2025-02-28 14:21] LABS: Albumin 2.8 g/dL (3.2-4.8); Calcium 7.4 mg/dL (8.7-10.4); Glucose 133 mg/dL (74-106); Total Protein 4.4 g/dL (5.7-8.2)
[2025-02-28 15:34] LABS: Total Cells Counted 100.0 (100)
[2025-02-28 15:35] LABS: Anisocytosis Moderate
[2025-02-28] MEDS: ACETAMINOPHEN 325 MG TAB PO PRN (17:52)
--- NOTE | 2025-02-28 18:29 | DVHPN2 ---
Assessment/Plan Assessment/Plan progress note 64 M with COPD, HTN, anemia rec tx, ex smoker, recent admission x2 in OSH with PNA / COPDe, admitted for same. previously discharged on po abx. s/p bronch. covered empirically, now improved. pending BAL culture seen today, titrate spo2 to >92. c/w PT for effort tolerance improvement. 1 more PRBC. pending hemeonc Physical exam AOx4 comfortable in NC no JVD PERRLA MMM S1 S2 RRR no murmur b/l coarse rhonchi abdomen soft nontender no LE edema labs ekg imaging reviewed bone marrow from 01/21/25 hypocellular marrow, minimal fibrosis and fatty marrow replacement, no iron stores, mild reticulin fibrosis MRSA neg BAL culture negative assessment and plan anemia MDS req transfusion syncope from above chronic hypoxic respiratory failure COPD not on exacerbation MDS vs marrow suppression microcytic anemia CKD 2 s/p 1 unit PRBC ex smoker protein calorie malnutrition muscle spasm HTN tele resume home meds s/p PRBC maintain hb >7 HemOnc consult considering EPO vs luspatercept keep spo2 >92 nebs diet cardiac dvt ppx hold full code Plan discussed with: Patient Date of Service: Feb 28, 2025 Billing Provider: MIRANDA TRAN MD Common Visit Codes: [id number] INP/OBS CARE(HIGH) MIRANDA TRAN MD Feb 28, 2025 18:29
[2025-02-28] MEDS ORDERED: THROAT LOZENGES(CEPASTAT) MT PRN (18:45)
[2025-02-28] MEDS: guaiFENesin-CODEINE Liq 5 ML UD PO ONE (20:00)
[2025-02-28] MEDS: guaiFENesin-DM 100/10mg/5ml SYR PO PRN (20:29)
[2025-03-01] VITALS (13 sets, daily range): BP systolic 126–138; BP diastolic 70–86; PULSE 64–76; RESP 16–20; TEMP 98.2–99.9; O2SAT 96–100
[2025-03-01 05:19] LABS: Hemoglobin 8.2 g/dL (13.5-17.5)
[2025-03-01 05:21] LABS: Hematocrit 24.4 % (41.0-53.0); Mean Corpuscular Hemoglobin 28.2 pg (28.0-32.0); Mean Corpuscular Volume 83.8 fL (80.0-100.0)
[2025-03-01 06:54] LABS: Nucleated Red Blood Cells % 1.0 %
[2025-03-01 06:55] LABS: Anisocytosis Moderate; Total Cells Counted 100.0 (100)
[2025-03-01 06:56] LABS: Polychromasia Slight
[2025-03-01] MEDS: BRIMONIDINE 0.2% OPTH Soln 5ml EACHEYE SCH (13:07)
--- NOTE | 2025-03-01 15:17 | DVHPN2 ---
Assessment/Plan Assessment/Plan progress note 64 M with COPD, HTN, anemia rec tx, ex smoker, recent admission x2 in OSH with PNA / COPDe, admitted for same. previously discharged on po abx. s/p bronch. covered empirically, now improved. pending BAL culture seen today, dc plan tomorrow, if insurance switched will [facility]. Physical exam AOx4 comfortable in NC no JVD PERRLA MMM S1 S2 RRR no murmur b/l coarse rhonchi abdomen soft nontender no LE edema labs ekg imaging reviewed bone marrow from 01/21/25 hypocellular marrow, minimal fibrosis and fatty marrow replacement, no iron stores, mild reticulin fibrosis MRSA neg BAL culture negative assessment and plan anemia MDS req transfusion syncope from above chronic hypoxic respiratory failure COPD not on exacerbation MDS vs marrow suppression microcytic anemia CKD 2 s/p 1 unit PRBC ex smoker protein calorie malnutrition muscle spasm HTN tele resume home meds s/p PRBC maintain hb >7 HemOnc consult considering EPO vs luspatercept keep spo2 >92 nebs diet cardiac dvt ppx hold full code Plan discussed with: Patient My Orders Orders - MIRANDA TRAN MD Procedure Category Date Status Time Pt Request For Service PT 02/28/25 Logged 18:26 Stool Occult Blood LAB 02/28/25 Logged 18:28 Brimonidine 0.2% Opth PHA 03/01/25 In Process Soln (Alphagan 0.2 14:00 Date of Service: Mar 01, 2025 Billing Provider: MIRANDA TRAN MD Common Visit Codes: [id number] INP/OBS CARE(HIGH) MIRANDA TRAN MD Mar 01, 2025 15:17
[2025-03-01] MEDS: CYCLOBENZAPRINE HCL 10 MG TAB PO ONE (22:02)
[2025-03-02] VITALS (7 sets, daily range): BP systolic 125–131; BP diastolic 75–85; PULSE 62–88; RESP 18–19; TEMP 37.8; O2SAT 98–100
--- NOTE | 2025-03-02 14:07 | DVHDS2 ---
Discharge Summary Date of Admission Feb 26, 2025 at 12:35 Date of Discharge: Mar 02, 2025 Labs/Diagnostic Data: Laboratory Results Test 03/01/25 04:40 02/28/25 13:55 02/26/25 20:01 02/26/25 15:03 White Blood Count 7.6 10^3/uL (4.4-10.8) Red Blood Count 2.91 10^6/uL (4.5-5.90) Hemoglobin 8.2 g/dL (13.5-17.5) Hematocrit 24.4 % (41.0-53.0) Mean Corpuscular Volume 83.8 fL (80.0-100.0) Mean Corpuscular Hemoglobin 28.2 pg (28.0-32.0) Mean Corpuscular Hemoglobin Concent 33.6 g/dL (32.0-36.0) Red Cell Distribution Width 19.9 % (11.8-14.3) Platelet Count 29 10^3/uL (140-450) Mean Platelet Volume 8.0 fL (6.9-10.8) Neutrophils (%) (Auto) % (37.0-80.0) Lymphocytes (%) (Auto) % (10.0-50.0) Monocytes (%) (Auto) % (0.0-12.0) Basophils (%) (Auto) % (0.0-2.0) Neutrophils # (Auto) 10 ^3/uL (1.6-8.6) Lymphocytes # (Auto) 10 ^3/uL (0.4-5.4) Monocytes # (Auto) 10 ^3/uL (0-1.3) Differential Total Cells Counted 100.0 (100) Neutrophils % (Manual) 44 (37.0-80.0) Band Neutrophils % (Manual) 6 Lymphocytes % (Manual) 19 (10.0-50.0) Monocytes % (Manual) 23 (0-12) Eosinophils % (Manual) 2 (0-7) Basophils % (Manual) 0 (0.0-2.0) Metamyelocytes % (manual) 2 Myelocytes % (Manual) 3 Promyelocytes % (Manual) 1 Blast Cells % (Manual) 0 Nucleated Red Blood Cells 1.0 % Reactive Lymphocytes 0 Platelet Estimate Decreased Polychromasia Slight Anisocytosis (manual) Moderate Sodium Level 137 mmol/L (136-145) Potassium Level 4.3 mmol/L (3.5-5.1) Chloride Level 105 mmol/L (98-107) Carbon Dioxide Level 23 mmol/L (20-31) Anion Gap 9 (5-15) Blood Urea Nitrogen 22 mg/dL (9-23) Creatinine 1.06 mg/dL (0.700-1.30) Glomerular Filtration Rate Calc 78 mL/min (>90) BUN/Creatinine Ratio 20.8 (10.0-20.0) Serum Glucose 133 mg/dL (74-106) Calcium Level 7.4 mg/dL (8.7-10.4) Phosphorus Level 3.0 mg/dL (2.4-5.1) Magnesium Level 1.8 mg/dL (1.6-2.6) Total Bilirubin 0.4 mg/dL (0.2-1.0) Aspartate Amino Transferase (AST) 17 U/L (13-40) Alanine Aminotransferase (ALT) 17 U/L (7-40) Alkaline Phosphatase 77 U/L (46-116) Total Protein 4.4 g/dL (5.7-8.2) Albumin 2.8 g/dL (3.2-4.8) Urine Color Yellow (Yellow) Urine Clarity Clear (Clear) Urine pH 6.0 (5.0-9.0) Urine Specific [place] 1.016 (1.001-1.035) Urine Protein 2+ (Negative) Urine Ketones Negative (Negative) Urine Blood Negative /uL (Negative) Urine Nitrite Negative (Negative) Urine Bilirubin Negative (Negative) Urine Urobilinogen Normal mg/dL (Negative) Urine Leukocyte Esterase Negative /uL (Negative) Urine RBC 2 /hpf (0 - 3) Urine Microscopic WBC 2 /HPF (0-3) Urine Squamous Epithelial Cells None seen /hpf (<5) Urine Bacteria None seen /hpf (None Seen) Urine Hyaline Casts Few /lpf (0 - 2) Urine Glucose Normal mg/dL (Normal) Urine Opiates Screen Neg (NEGATIVE) Urine Fentanyl Screen Neg (NEGATIVE) Urine Barbiturates Screen Neg (NEGATIVE) Urine Phencyclidine Screen Neg (NEGATIVE) Urine Amphetamines Screen Neg (NEGATIVE) Urine Benzodiazepines Screen Neg (NEGATIVE) Urine Cocaine Screen Neg (NEGATIVE) Urine Cannabinoids Screen Neg (NEGATIVE) Reticulocyte Count (auto) 3.08 % (0.5-1.5) Iron Level 46 ug/dL (65-175) Total Iron Binding Capacity 189 ug/dL (250-425) Percent Iron Saturation 24.3 % (20-55) Ferritin 3003.5 ng/mL (22-322) Troponin I High Sensitivity 5 ng/L (</=54) Vitamin B12 Level 520 pg/mL (211-911) Folic Acid 15.27 ng/mL (>5.38) Test 02/26/25 13:18 02/26/25 13:10 02/26/25 12:34 Lactate Dehydrogenase 768 U/L (120-246) Influenza Type A Antigen Negative (Negative) Influenza Type B Antigen Negative (Negative) SARS-CoV-2 Antigen (Rapid) Negative (NEGATIVE) Ovalocytes Few Other Laboratory Tests 03/01/25 04:40 02/28/25 13:55 Final Diagnosis/Problems List anemia req transfusion copd Discharge Disposition: Home Discharge Instruct/Medications Diet: Consistent carbohydrate, Cardiac 2g Na,low cholest Activity: No Restrictions, As Tolerated Follow Up/Referral: dc clinic 03/11 dr lopez Scheduled Albuterol Sulfate (Albuterol Sulfate Hfa), 108 MCG IN DAILY Amlodipine Besylate (Amlodipine Besylate), 10 MG PO DAILY, (Reported) Carvedilol (Coreg), 1 TAB PO BID Ferrous Sulfate (Ferosul), 1 TAB PO DAILY, (Reported) Ferrous Sulfate (Ferrous Sulfate), 1 TAB PO DAILY Hydrochlorothiazide (Hydrochlorothiazide), 25 MG PO DAILY, (Reported) Nicotine (Nicotine Transdermal Syst), 1 PATCH TOP DAILY, (Reported) Tiotropium [place] Monohydrate (Spiriva Respimat), 2.5 MCG IN DAILY Discharge Statement: "Patient was advised to return to the ER or call 911 if any headaches, dizziness, shortness of breath, chest pain, abdominal pain, bleeding, fevers, or worsening of medical condition. Patient was counseled about treatment plan, medications, possible side effects, patientverbalized understanding. All questions were answered to the best of my ability. This discharge took greater then 30 minutes in planning, reviewing documentation, counseling the patient, and discussing with other team members." ASSESSMENT ASSESSMENT Assessment anemia req transfusion copd Date of Service: Mar 02, 2025 Billing Provider: MIRANDA TRAN MD Common Visit Codes: [id number] DISCH DAY >30min MIRANDA TRAN MD Mar 02, 2025 14:07
== END 2025-03-02 15:29 | disposition home or self-care (01) | DRG 811 ==
LOC: ER 11:32 → EDBD 11:32 → OVERFLOW 12:35 → EAST 12:37
PROVIDERS: ADMIT Student in an Organized Health Care Education/Training Program; ATTEND Student in an Organized Health Care Education/Training Program
PROC: 30233N1 Transfusion of Nonautologous Red Blood Cells into Peripheral Vein, Percutaneous Approach (ICD-10-PCS; principal; 2025-02-26)
DX: D46.9 Myelodysplastic syndrome, unspecified (principal); E43 Unspecified severe protein-calorie malnutrition; J96.11 Chronic respiratory failure with hypoxia; Z68.1 Body mass index [BMI] 19.9 or less, adult; D50.9 Iron deficiency anemia, unspecified; G90.89 Other disorders of autonomic nervous system; Z20.822 Contact with and (suspected) exposure to COVID-19; D69.6 Thrombocytopenia, unspecified; I65.23 Occlusion and stenosis of bilateral carotid arteries; I12.9 Hypertensive chronic kidney disease with stage 1 through stage 4 chronic kidney disease, or unspecified chronic kidney disease; J44.9 Chronic obstructive pulmonary disease, unspecified; N18.2 Chronic kidney disease, stage 2 (mild); F17.210 Nicotine dependence, cigarettes, uncomplicated; M62.838 Other muscle spasm; Z99.81 Dependence on supplemental oxygen
CPT/HCPCS: 36415; 36430; 70450; 71045; 80048; 80053; 80307; 81001; 82607; 82728; 82746; 83540; 83550; 83615; 83735; 84100; 84484; 85007; 85027; 85045; 86850; 86900; 86901; 86920; 87081; 87426; 87804; 93886; 99291; G0378

== ENCOUNTER → 2025-03-11 | Outpatient (CLI) | payer MEDICARE, MEDICAID ==
[2025-03-11 11:32] LABS: Hemoglobin 8.2 g/dL (13.5-17.5); Mean Corpuscular Hemoglobin 27.1 pg (28.0-32.0)
[2025-03-11 11:34] LABS: Hematocrit 26.3 % (41.0-53.0); Mean Corpuscular Volume 87.5 fL (80.0-100.0)
[2025-03-11 12:02] LABS: Anisocytosis Slight; Nucleated Red Blood Cells % 1.0 %; Total Cells Counted 100.0 (100)
== END | disposition home or self-care (01) ==
LOC: LAB 11:16
PROVIDERS: ATTEND Student in an Organized Health Care Education/Training Program
DX: D46.Z Other myelodysplastic syndromes (principal)
CPT/HCPCS: 36415; 85007; 85027

== ENCOUNTER 2025-03-29 21:05 | Emergency (ER) | payer MEDICARE, MEDICAID ==
[~2025-03-29] VITALS: Ht 182.9 cm; Wt 64.0 kg
[2025-03-29 21:48] VITALS: BP 116/64; TEMP 98.4
--- NOTE | 2025-03-29 22:05 | ED.PDOC ---
Epistaxis- HPI HPI Comments 64-year-old male presents to ER with complaints of nosebleed x 1 day. Patient reports that he started experiencing unprovoked bleeding from right nasal flare at 6:00 p.m. prior to arrival to ER. Denies any pain and presents to ER ambulatory on arrival, alert oriented x4, with steady gait, in no distress with minimal bleeding noted from right hand flare. Patient does also present on 3 L nasal cannula due to history of COPD. Denies headache, nose picking, nausea/vomiting, injury, dizziness or any further symptoms/complaints Chief Complaint: Nose Bleed Time Seen by MD: 21:28 Primary Care Provider: UNKNOWN Reviewed Notes: Nurses Notes, Medications, Allergies Allergies: Coded Allergies: NO KNOWN ALLERGIES (Unverified , 02/01/20) Home Meds Active Scripts Tiotropium [place] Monohydrate (Spiriva Respimat) 2.5 Mcg/Act Spr, 2.5 MCG IN DAILY for 30 Days, #30 SPRAY 1 Refill Prov:MIRANDA TRAN MD 02/23/25 Ferrous Sulfate (FERROUS SULFATE) 325 Mg Tb, 1 TAB PO DAILY for 30 Days, #30 TAB 0 Refills Prov:MIRANDA TRAN MD 02/21/25 Carvedilol (Coreg) 25 Mg Tab, 1 TAB PO BID for 30 Days, #60 TAB 0 Refills Prov:MIRANDA TRAN MD 02/21/25 Albuterol Sulfate (Albuterol Sulfate Hfa) 108 Mcg/Act Aer, 108 MCG IN DAILY for 30 Days, #30 AER Prov:MIRANDA TRAN MD 02/21/25 Reported Medications Hydrochlorothiazide (Hydrochlorothiazide) 25 Mg Tab, 25 MG PO DAILY for 30 Days, MG 02/11/25 Amlodipine Besylate (Amlodipine Besylate) 10 Mg Tab, 10 MG PO DAILY, TAB 02/11/25 Ferrous Sulfate (Ferosul) 325 Mg Tab, 1 TAB PO DAILY 02/09/25 Nicotine (Nicotine Transdermal Syst) 21 Mg/24 Hr Dis, 1 PATCH TOP DAILY 02/09/25 Information Source: Patient (and patients ) Mode of Arrival: Ambulatory Past Medical History PAST MEDICAL HISTORY: Anemia, COPD, HTN Surgical History: Denies all surgeries Family History Family History: Unknown Social History Smoker: Non-Smoker Alcohol: Denies ETOH Use Drugs: Denies Drug Use Lives In: Home Constitutional: denies: chills, diaphoresis, fatigue, fever, malaise, sweats, weakness, others EENTM: reports: others (As stated in HPI) Respiratory: denies: cough, hemoptysis, orthopnea, SOB at rest, shortness of breath, SOB with excertion, stridor, wheezing, others Cardiovascular: denies: chest pain, dizzy spells, diaphoresis, Dyspnea on exertion, edema, irregular heart beat, left arm pain, lightheadedness, palpitations, PND, syncope, others Gastrointestinal: denies: abdomen distended, abdominal pain, blood streaked bowels, constipated, diarrhea, dysphagia, difficulty swallowing, hematemesis, melena, nausea, poor appetite, poor fluid intake, rectal bleeding, rectal pain, vomiting, others Genitourinary: denies: burning, dysuria, flank pain, frequency, hematuria, incontinence, penile discharge, penile sore, pain, testicle pain, testicle swelling, urgency, others Neurological: denies: dizziness, fainting, headache, left sided numbness, left sided weakness, numbness, paresthesia, pre-existing deficit, right sided numbn ess, right sided weakness, seizure, speech problems, tingling, tremors, weakness, others Musculoskeletal: denies: back pain, gout, joint pain, joint swelling, muscle pain, muscle stiffness, neck pain, others Integumetry: denies: bruises, change in color, change in hair/nails, dryness, laceration, lesions, lumps, rash, wounds, others Allergic/Immunocompromised: denies: Difficulty Healing, Frequent Infections, Hives, Itching, others Hematologic/Lymphatic: reports: others (As stated in HPI) Endocrine: denies: excessive hunger, excessive sweating, excessive thirst, excessive urination, flushing, intolerance to cold, intolerance to heat, unexplained weight gain, unexplained weight loss, others Psychiatric: denies: anxiety, bipolar disorder, depression, hopeless, panic disorder, schizophrenia, sleepless, suicidal, others Physical Exam General Appearance: No Apparent Distress HEENT: PERRL/EOMI, Pharynx Normal, TMs Normal, Other (Patient on 3 L nasal cannula. Minimal anterior right nasal bleeding noted) Neck: Full Range of Motion, Non-Tender, Normal, Normal Inspection Respiratory: Chest Non-Tender, Lungs Clear, No Accessory Muscle Use, No Respi ratory Distress, Normal Breath Sounds Cardiovascular: No Murmur, No Gallop, Regular Rate/Rhythm Breast Exam: Deferred Gastrointestinal: NOT DONE Genitalia: Deferred Pelvic: Deferred Rectal: Deferred Extremities: Normal capillary refill, Normal range of motion Neurologic: Alert, bull riveter II-XII nml as Tested, No Motor Deficits, Normal Affect, Normal Mood, No Sensory Deficits Cerebellar Function: Normal Reflexes: Normal Skin: Dry, Normal Color, Warm Peripheral Pulses: 2+ carotid (R), 2+ carotid (L), 2+ Radial (R), 2+ Radial (L), 2+ Brachial (R), 2+ Brachial (L) Lymphatic: No Adenopathy Was a procedure done? Was a procedure done?: Yes Sedation Sedation?: No Nasal Cautery and Pack Indicaton: Anterior epitaxis Silver nitrate: Right Hemostasis: Was not obtained (With silver nitrate) Location of packing: Right Packing: Other (Right rhino rocket- patient tolerated well without any nosebleed appreciated post rhino rocket insertion) Informed consent obtained: Yes Risks/benefits/alt described: Yes Differential Diagnosis (NSB) Differential Diagnosis: Posterior Nasal Bleed, Foreign Body, Hypertension X-Ray, Labs, Meds, VS Vital Signs Date Time Temp Pulse Resp B/P (MAP) Pulse Ox O2 Delivery O2 Flow Rate FiO2 03/29/25 22:17 77 16 98 03/29/25 21:48 Nasal Cannula* 3 32 03/29/25 21:48 98.4 83 20 116/64 (81) 91 98.4 03/29/25 21:05 98.4 83 20 116/64 91 98.4 Current Medications Medications (Trade) Dose Ordered Sig/Raulito Route Start Time Stop Time Status Last Admin Oxymetazoline HCl (Afrin) 1 spr ONCE ONCE EACHNOSTRI 03/29/25 22:15 03/29/25 22:16 DC 03/29/25 22:09 Afrin ordered - patient still had nose bleeding with Afrin and direct nasal pressure Cauterization attempted without success Patient and patients requested Rhino rocket- with all risks discussed Advised to follow up in 2-3 days for removal of packing Patient provided simple mask with oxygen saturations at 99% on 3L - was advised on use at all times at home Patient had improvement in symptoms, in no distress and asymptomatic of nose bleeding for at least 1 hour prior to discharge. Case discussed with Dr. Sousa who's agreeable with current plan of care Advised to follow up with PCP in 1-2 days Patient and patient's verbalized understanding and agreeable with current plan of care Advised to return to ER immediately if symptoms worsen Time of 1ST Reevaluation: 21:54 Reevaluation 1ST: N/A Patient Education/Counseling: Diagnosis, Treatment, Prognosis, Need For Follow Up Family Education/Counseling: Diagnosis, Treatment, Prognosis, Need For Follow Up Departure 1 Departure Time of Disposition: 22:51 Impression: Primary Impression: Anterior epistaxis Additional Impression: History of COPD Disposition: 01 HOME / SELF CARE / HOMELESS Condition: Stable Discharged With: Significant Other Critical Care Note Critical Care Time?: No Stability Stability form required: No Heart Score Heart Score: Heart Score Response (Comments) Value History N/A 0 EKG N/A 0 Age N/A 0 Risk Factors N/A 0 Troponin N/A 0 Total 0 MOODY JAIN Mar 29, 2025 22:05
[2025-03-29] MEDS: OXYMETAZOLINE HCL 0.05 % NASAL SPRAY 15ML EACHNOSTRI ONE (22:09)
[2025-03-29 22:17] VITALS: PULSE 77; RESP 16; O2SAT 98
== END 2025-03-29 23:48 | disposition home or self-care (01) ==
LOC: ER 21:05
DX: R04.0 Epistaxis (principal); J44.9 Chronic obstructive pulmonary disease, unspecified; I10 Essential (primary) hypertension; Z79.899 Other long term (current) drug therapy
CPT/HCPCS: 30901

== ENCOUNTER 2025-05-08 06:04 | Inpatient (IN) | payer MEDICARE, MEDICAID ==
[~2025-05-08] VITALS: Ht 177.8 cm; Wt 57.7 kg
[2025-05-08] VITALS (13 sets, daily range): BP systolic 99–117; BP diastolic 45–59; PULSE 66–78; RESP 16–27; TEMP 97.5–98.4; O2SAT 90–96
--- NOTE | 2025-05-08 06:43 | ED.PDOC ---
GI ASSESSMENT HPI Comments This is a 64 year old male PETER presenting to the ED with chief complaint of abdominal pain. Patient reports that he has been experiencing generalized abdominal pain with associated SOB since yesterday. EMS relays patient has history of COPD and is currently on 3L of O2 at 98% O2 saturation. EMS states patient has history of similar symptoms in the past indicating that he may need a blood transfusion as he has history of anemia. Patient denies any N/V/D, dizziness, fever, chills, chest pain, or headache. 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, Medications, Allergies Allergies: Coded Allergies: NO KNOWN ALLERGIES (Unverified , 02/01/20) Home Meds Active Scripts Tiotropium Leander Monohydrate (Spiriva Respimat) 2.5 Mcg/Act Spr, 2.5 MCG IN DAILY for 30 Days, #30 SPRAY 1 Refill Prov:MIRANDA TRAN MD 02/23/25 Ferrous Sulfate (FERROUS SULFATE) 325 Mg Tb, 1 TAB PO DAILY for 30 Days, #30 TAB 0 Refills Prov:MIRANDA TRAN MD 02/21/25 Carvedilol (Coreg) 25 Mg Tab, 1 TAB PO BID for 30 Days, #60 TAB 0 Refills Prov:MIRANDA TRAN MD 02/21/25 Albuterol Sulfate (Albuterol Sulfate Hfa) 108 Mcg/Act Aer, 108 MCG IN DAILY for 30 Days, #30 AER Prov:MIRANDA TRAN MD 02/21/25 Reported Medications Hydrochlorothiazide (Hydrochlorothiazide) 25 Mg Tab, 25 MG PO DAILY for 30 Days, MG 02/11/25 Amlodipine Besylate (Amlodipine Besylate) 10 Mg Tab, 10 MG PO DAILY, TAB 02/11/25 Ferrous Sulfate (Ferosul) 325 Mg Tab, 1 TAB PO DAILY 02/09/25 Nicotine (Nicotine Transdermal Syst) 21 Mg/24 Hr Dis, 1 PATCH TOP DAILY 02/09/25 Information Source: Patient, Emergency Med Personnel Mode of Arrival: EMS Timing: Days Duration: Since onset Prehospital treatment: None Quality: Sharp Vomitus: None Stool: Normal Severity: Moderate Recent: None Recent Hx of: None Pain Location: Diffuse Modifying Factors: Nothing Associated sign and symptoms: Abdominal Pain Past Medical History PAST MEDICAL HISTORY: Anemia, CKF, COPD, HTN Surgical History: Denies all surgeries Family History Family History: Reviewed,noncontributory to illness, Unknown Social History Smoker: Non-Smoker Alcohol: Denies ETOH Use Drugs: Denies Drug Use Lives In: Home Constitutional: denies: chills, diaphoresis, fatigue, fever, malaise, sweats, weakness, others EENTM: denies: blurred vision, double vision, ear bleeding, ear discharge, ear drainage, ear pain, ear ringing, eye pain, eye redness, hearing loss, mouth pain, mouth swelling, nasal discharge, nose bleeding, nose congestion, nose pain, photophobia, tearing, throat pain, throat swelling, voice changes, others Respiratory: reports: shortness of breath; denies: cough, hemoptysis, orthopnea, SOB at rest, SOB with excertion, stridor, wheezing, others Cardiovascular: denies: chest pain, dizzy spells, diaphoresis, Dyspnea on exertion, edema, irregular heart beat, left arm pain, lightheadedness, palpitations, PND, syncope, others Gastrointestinal: reports: abdominal pain; denies: abdomen distended, blood streaked bowels, constipated, diarrhea, dysphagia, difficulty swallowing, hematemesis, melena, nausea, poor appetite, poor fluid intake, rectal bleeding, rectal pain, vomiting, others Genitourinary: denies: burning, dysuria, flank pain, frequency, hematuria, inc ontinence, penile discharge, penile sore, pain, testicle pain, testicle swelling, urgency, others Neurological: denies: dizziness, fainting, headache, left sided numbness, left sided weakness, numbness, paresthesia, pre-existing deficit, right sided numbness, right sided weakness, seizure, speech problems, tingling, tremors, weakness, others Musculoskeletal: denies: back pain, gout, joint pain, joint swelling, muscle pain, muscle stiffness, neck pain, others Integumetry: denies: bruises, change in color, change in hair/nails, dryness, laceration, lesions, lumps, rash, wounds, others Allergic/Immunocompromised: denies: Difficulty Healing, Frequent Infections, Hives, Itching, others Hematologic/Lymphatic: denies: anemia, blood clots, easy bleeding, easy bruising, swollen glands, others Endocrine: denies: excessive hunger, excessive sweating, excessive thirst, excessive urination, flushing, intolerance to cold, intolerance to heat, unexplained weight gain, unexplained weight loss, others Psychiatric: denies: anxiety, bipolar disorder, depression, hopeless, panic disorder, schizophrenia, sleepless, suicidal, others All Other Systems: Reviewed and Negative Physical Exam General Appearance: Moderate Distress, Thin HEENT: Normal ENT Inspection, Pharynx Normal, TMs Normal Neck: Full Range of Motion, Non-Tender, Normal, Normal Inspection Respiratory: Chest Non-Tender, Lungs Clear, No Accessory Muscle Use, No Respiratory Distress, Normal Breath Sounds Cardiovascular: No Edema, No JVD, No Murmur, No Gallop, Normal Peripheral Pulses, Regular Rate/Rhythm Breast Exam: Deferred Gastrointestinal: No Organomegaly, Non Tender, No Pulsatile Mass, Normal Bowel Sounds, Soft Genitalia: Deferred Pelvic: Deferred Rectal: Deferred Extremities: No calf tenderness, Normal capillary refill, Normal inspection, Normal range of motion, Non-tender, No pedal edema Musculoskeletal : Apperance: Normal Neurologic: 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 Was a procedure done?: No GI differential Dx Differential Diagnosis: Constipation, Diverticular disease, Esophagitis, Gastritis/PUD, Gastroenteritis X-Ray, Labs, Meds, VS Vital Signs Date Time Temp Pulse Resp B/P (MAP) Pulse Ox O2 Delivery O2 Flow Rate FiO2 05/08/25 07:05 67 95/43 (60) 05/08/25 06:57 66 90/35 (53) 05/08/25 06:52 98.1 65 18 99/37 (57) 94 98.1 05/08/25 06:52 66 18 90 Nasal Cannula* 4 36 05/08/25 06:49 66 05/08/25 06:49 98.0 67 22 96/58 96 98.0 Lab Test 05/08/25 07:17 05/08/25 06:42 Range/Units Lactic Acid Level Pending White Blood Count 155.9 *H 4.4-10.8 10^3/uL Red Blood Count 1.49 L 4.5-5.90 10^6/uL Hemoglobin 4.5 *L 13.5-17.5 g/dL Hematocrit 16.8 L 41.0-53.0 % Mean Corpuscular Volume 113.4 H 80.0-100.0 fL Mean Corpuscular Hemoglobin 30.4 28.0-32.0 pg Mean Corpuscular Hemoglobin Concent 26.8 L 32.0-36.0 g/dL Red Cell Distribution Width 27.8 H 11.8-14.3 % Platelet Count 22 L 140-450 10^3/uL Mean Platelet Volume 9.7 6.9-10.8 fL Neutrophils (%) (Auto) 37.0-80.0 % Lymphocytes (%) (Auto) 10.0-50.0 % Monocytes (%) (Auto) 0.0-12.0 % Basophils (%) (Auto) 0.0-2.0 % Neutrophils # (Auto) 1.6-8.6 10 ^3/uL Lymphocytes # (Auto) 0.4-5.4 10 ^3/uL Monocytes # (Auto) 0-1.3 10 ^3/uL Differential Total Cells Counted Pending Neutrophils % (Manual) Pending Band Neutrophils % (Manual) Pending Lymphocytes % (Manual) Pending Monocytes % (Manual) Pending Eosinophils % (Manual) Pending Basophils % (Manual) Pending Metamyelocytes % (manual) Pending Myelocytes % (Manual) Pending Promyelocytes % (Manual) Pending Blast Cells % (Manual) Pending Nucleated Red Blood Cells % Reactive Lymphocytes Pending Platelet Estimate Pending Sodium Level 141 136-145 mmol/L Potassium Level 6.3 *H 3.5-5.1 mmol/L Chloride Level 115 H 98-107 mmol/L Carbon Dioxide Level 13 L 20-31 mmol/L Anion Gap 13 5-15 Blood Urea Nitrogen 56 H 9-23 mg/dL Creatinine 2.84 H 0.700-1.30 mg/dL Glomerular Filtration Rate Calc 24 >90 mL/min BUN/Creatinine Ratio 19.7 10.0-20.0 Serum Glucose 101 74-106 mg/dL Calcium Level 8.0 L 8.7-10.4 mg/dL Total Bilirubin 3.2 H 0.2-1.0 mg/dL Aspartate Amino Transferase (AST) 476 H 13-40 U/L Alanine Aminotransferase (ALT) 151 H 7-40 U/L Alkaline Phosphatase 154 H 46-116 U/L Troponin I High Sensitivity 4 </=54 ng/L Total Protein 5.8 5.7-8.2 g/dL Albumin 2.6 L 3.2-4.8 g/dL Current Medications Medications (Trade) Dose Ordered Sig/Raulito Route Start Time Stop Time Status Last Admin Sodium Chloride 1,000 ml @ 1,000 mls/hr Q1H ONCE IVB 05/08/25 07:15 05/08/25 08:14 05/08/25 07:09 Patient alert. Came in because of abdominal discomfort. Possibly lost lot of weight. Vitals stable. History of COPD. On oxygen. Blood pressure low. Heart rate within normal limits. Explained to the patient. Continue monitoring. Time of 1ST Reevaluation: 07:40 Reevaluation 1ST: Unchanged Patient Education/Counseling: Diagnosis, Treatment Family Education/Counseling: No Family Present SEPSIS Sepsis Screen Physician Orders Complete Blood Count (05/08/25 06:36) Chest Portable (05/08/25 06:36) Urinalysis (05/08/25 06:36) Sodium Chloride 0.9% (05/08/25 07:15) Sodium Chloride 0.9% (05/08/25 07:15) Metronidazole 500mg/100ml (Flagyl 500mg/ (05/08/25 07:15) Blood Culture (05/08/25 07:05) Lactic Acid W/ Reflex Order (05/08/25 07:05) Manual Differential (05/08/25 06:42) Potassium (05/08/25 11:43) Insulin R 10units Iv X One (05/08/25 07:45) Dextrose 50% 1amp=50ml (05/08/25 07:45) Albuterol 20mg Medneb X One (05/08/25 07:45) Sod Bicarb 50ml=1amp (05/08/25 07:45) Lasix 20mg Iv X One (05/08/25 07:45) Calcium Gluc 1 Amp Ivpb (05/08/25 07:45) Lokelma 10gm Po X One (05/08/25 07:45) Vital Signs Date Time Temp Pulse Resp B/P (MAP) Pulse Ox O2 Delivery O2 Flow Rate FiO2 05/08/25 07:05 67 95/43 (60) 05/08/25 06:57 66 90/35 (53) 05/08/25 06:52 98.1 65 18 99/37 (57) 94 98.1 05/08/25 06:52 66 18 90 Nasal Cannula* 4 36 05/08/25 06:49 66 05/08/25 06:49 98.0 67 22 96/58 96 98.0 Laboratory Tests Test 05/08/25 06:42 05/08/25 07:17 White Blood Count 155.9 10^3/uL (4.4-10.8) *H Lactic Acid Level Pending Medications Medications Dose Ordered Sig/Raulito Route Start Time Stop Time Status Last Admin Dose Admin Sodium Chloride 1,000 ml @ 1,000 mls/hr Q1H ONCE IVB 05/08/25 07:15 05/08/25 08:14 05/08/25 07:09 Departure 1 Departure Time of Disposition: 07:04 Impression: Primary Impression: Hypotension Qualified Codes: I95.9 - Hypotension, unspecified Additional Impressions: COPD exacerbation Failure to thrive Qualified Codes: R62.7 - Adult failure to thrive Hyperkalemia Liver disease Acute renal failure Qualified Codes: N17.9 - Acute kidney failure, unspecified Disposition: 09 ADMITTED INPATIENT Admit to: Med Surg Condition: Guarded Critical Care Note Critical Care Time?: Yes (90 min-critical care time only) Stability Stability form required: No Heart Score Heart Score: Heart Score Response (Comments) Value History Slightly Suspicious 0 EKG Normal 0 Age >65 2 Risk Factors >3 or Hx ASHD 2 Troponin Normal limit 0 Total 4 I personally scribed for HILARIA CERNA MD ([email or web address]) on 05/08/25 at 06:43. Electronically submitted by Ricardo Rivera ([email or web address]). HILARIA CERNA MD May 08, 2025 06:43
[2025-05-08 07:05] LABS: Hematocrit 16.8 % (41.0-53.0); Mean Corpuscular Hemoglobin 30.4 pg (28.0-32.0); Mean Corpuscular Volume 113.4 fL (80.0-100.0)
[2025-05-08] MEDS: SODIUM CHLORIDE 0.9% 1,000 ML IVB ONE (07:09)
[2025-05-08 07:25] LABS: Anion Gap 13 (5-15); BUN/Creatinine Ratio 19.7 (10.0-20.0); Glucose 101 mg/dL (74-106); Sodium 141 mmol/L (136-145); Total Protein 5.8 g/dL (5.7-8.2)
[2025-05-08 07:37] LABS: Alanine Aminotransferase 151 U/L (7-40); Albumin 2.6 g/dL (3.2-4.8); Alkaline Phosphatase 154 U/L (46-116); Bilirubin, Total 3.2 mg/dL (0.2-1.0); Blood Urea Nitrogen 56 mg/dL (9-23); Calcium 8.0 mg/dL (8.7-10.4); Carbon Dioxide 13 mmol/L (20-31); Chloride 115 mmol/L (98-107)
[2025-05-08 07:42] LABS: Potassium 6.3 mmol/L (3.5-5.1)
[2025-05-08 07:43] LABS: Hemoglobin 4.5 g/dL (13.5-17.5)
[2025-05-08 07:53] LABS: Lactic Acid w/Reflex 2.3 mmol/L (0.4-2.0)
--- NOTE | 2025-05-08 07:59 | DVH ---
CHEST RADIOGRAPH INDICATION: sob TECHNIQUE: Single frontal view of the chest was obtained. COMPARISON: XR CHEST 1 VIEW on DOS: 04/15/25, XY CHEST PORTABLE on DOS: 02/26/25 FINDINGS: Similar-appearing nonspecific bilateral interstitial prominence. No focal consolidation. No significant pleural effusion. No pneumothorax. Stable cardiomediastinal silhouette. IMPRESSION: No focal consolidation.
[2025-05-08] MEDS: ALBUTEROL SULF 2.5 MG/0.5ML(0.5%) NEB SOLN NEB ONE (08:26)
[2025-05-08 08:37] LABS: Anisocytosis Slight; Nucleated Red Blood Cells % 21.0 %; Total Cells Counted 100.0 (100)
[2025-05-08 08:38] LABS: Macrocytosis Slight
[2025-05-08] MEDS: CALCIUM GLUC 1,000mg/50ml-NS 50 ML IV ONE (08:45)
[2025-05-08] MEDS: SODIUM BICARB 8.4% 50Meq/50ml SYR INJ IV ONE (09:19)
[2025-05-08] MEDS: SODIUM ZIRCONIUM CYCL 10 GM PAK PO ONE (09:19)
[2025-05-08] MEDS: DEXTROSE (50%) 50ML SYRG IV ONE (09:19)
[2025-05-08] MEDS: FUROSEMIDE 20 MG/2 ML VIAL IV ONE ×2 (09:20→19:02)
[2025-05-08] MEDS: InsuLIN REG 1unit/0.01ml Soln (100units/ml) IV ONE (09:49)
[2025-05-08] MEDS ORDERED: MORPHINE SULFATE INJ 2 MG/ml SYRG IV PRN (11:30)
[2025-05-08] MEDS ORDERED: ACETAMINOPHEN 325 MG TAB PO PRN (11:30)
[2025-05-08] MEDS ORDERED: HYDROcodone-ACET 5/325MG TAB PO PRN (11:30)
[2025-05-08] MEDS ORDERED: hydrALAZINE HCL 20 MG/ML VL IV PRN (11:30)
[2025-05-08] MEDS ORDERED: NITROGLYCERIN 0.4 MG SL TAB SL PRN (11:30)
[2025-05-08] MEDS ORDERED: ONDANSETRON HCL 4 MG/2 ML VIAL IV PRN (11:30)
--- NOTE | 2025-05-08 11:33 | DVHHP2 ---
History of Present Illness Reason for Visit: Severe anemia History of Present Illness The patient is a 64-year-old male with past medical history of chronic kidney failure, anemia, COPD, and hypertension who presented to [facility] ED with complaint of acute abdominal pain. Patient reports that he has been experiencing generalized abdominal pain associated with shortness of breaths for the past 1 day. Patient was seen and evaluated in the ED, laboratory data shows WBC 155.9, hemoglobin 4.5, hematocrit 16.8, platelets 55257, sodium 141, potassium 6.3, BUN 56, creatinine 2.84, GFR 24, glucose 101, calcium 8.0, albumin 2.5, total bilirubin 3.2, AST 476, ALT 151, alkaline phos 154, troponin 4, lactic acid 2.3, blood pressure 99/53, heart rate 74, temperature 97.8 F, O2 saturation 97% on oxygen. Renal ultrasound revealing 6.7 cm anechoic structure posterior to the bladder of uncertain etiology and or significant clinical correlation recommended, normal sonographic appearance of the kidney, no hydronephrosis. Chest x-ray show no focal consolidation. Please see medication orders section in the computer. On my assessment, sister at bedside, patient denied chest pain, no headache, diaphoresis, currently on oxygen, no diarrhea, nausea, vomiting, fever, no chills. Patient was admitted for further evaluation and medical management. Past Medical History Anemia, CKF, COPD, HTN Past Surgical History Denies all surgeries Family History Reviewed, noncontributory to the management of this case. Past Social History The patient lives at home, denies smoking, alcohol or illicit drugs abuse. Review of Systems Constitutional: Yes: Weakness; No: Fever, Chills, Sweats, Malaise, Other Eyes: No: Pain, Vision change, Conjunctivae inflammation, Eyelid inflammation, Other, Redness ENT: No: Ear pain, Ear discharge, Nose pain, Nose discharge, Nose congestion, Mouth pain, Mouth swelling, Throat pain, Throat swelling, Other Respiratory: Shortness of breath; No: Cough, Dry, SOB with excertion, Wheezing, Hemoptysis, Pleuritic Pain, Sputum, Wheezing, Other Cardiovascular: No: Chest Pain, Palpitations, Orthopnea, Paroxysmal Noc. Dyspn ea, Edema, Lt Headedness, Other Gastrointestinal: Abdominal Pain; No: Nausea, Vomiting, Diarrhea, Constipation, Melena, Hematochezia, Other Genitourinary: No Dysuria, No Frequency, No Incontinence, No Hematuria, No Retention, No Other Musculoskeletal: No: other, neck pain, shoulder pain, arm pain, back pain, hand pain, leg pain, foot pain Skin: No: Rash, Lesions, Jaundice, Bruising, Other Neurological: No: Weakness, Numbness, Incoordination, Change in speech, Confusion, Seizures, Other Allergies: Coded Allergies: NO KNOWN ALLERGIES (Unverified , 02/01/20) Exam Vital Signs Vital Signs Date Time Temp Pulse Resp B/P (MAP) Pulse Ox O2 Delivery O2 Flow Rate FiO2 05/08/25 10:47 97.8 74 20 99/53 97.8 05/08/25 08:27 97 Nasal Cannula* 3 32 General Appearance: Alert, Oriented X3, Cooperative, No acute distress HEENT: Atraumatic, PERRLA, EOMI, Mucous membr. moist/pink Respiratory: Normal air movement, Other (On oxygen) Cardiovascular: Regular rate, Normal S1, Normal S2, No murmurs Abdominal: Normal bowel sounds, Soft, No tenderness, No hepatospenomegaly, No masses Extremities: No clubbing, No cyanosis, No edema, Normal pulses, No tenderness/swelling Skin: No rashes, No significant lesion Neuro: Normal speech, Normal tone, Sensation intact, Cranial nerves 3-12 NL, Reflexes 2+, Other (Generalized weakness) Psych/Mental Status: Mental status NL, Mood NL Labs/Xrays Labs Test 05/08/25 11:03 05/08/25 07:17 05/08/25 06:42 Range/Units Lactic Acid Level 2.3 *H 0.4-2.0 mmol/L White Blood Count 155.9 *H 4.4-10.8 10^3/uL Red Blood Count 1.49 L 4.5-5.90 10^6/uL Hemoglobin 4.5 *L 13.5-17.5 g/dL Hematocrit 16.8 L 41.0-53.0 % Mean Corpuscular Volume 113.4 H 80.0-100.0 fL Mean Corpuscular Hemoglobin 30.4 28.0-32.0 pg Mean Corpuscular Hemoglobin Concent 26.8 L 32.0-36.0 g/dL Red Cell Distribution Width 27.8 H 11.8-14.3 % Platelet Count 22 L 140-450 10^3/uL Mean Platelet Volume 9.7 6.9-10.8 fL Neutrophils (%) (Auto) 37.0-80.0 % Lymphocytes (%) (Auto) 10.0-50.0 % Monocytes (%) (Auto) 0.0-12.0 % Basophils (%) (Auto) 0.0-2.0 % Neutrophils # (Auto) 1.6-8.6 10 ^3/uL Lymphocytes # (Auto) 0.4-5.4 10 ^3/uL Monocytes # (Auto) 0-1.3 10 ^3/uL Differential Total Cells Counted 100.0 100 Neutrophils % (Manual) 23 L 37.0-80.0 Band Neutrophils % (Manual) 6 Lymphocytes % (Manual) 23 10.0-50.0 Monocytes % (Manual) 21 H 0-12 Eosinophils % (Manual) 1 0-7 Basophils % (Manual) 0 0.0-2.0 Metamyelocytes % (manual) 2 Myelocytes % (Manual) 24 Promyelocytes % (Manual) 0 Blast Cells % (Manual) 0 Nucleated Red Blood Cells 21.0 % Reactive Lymphocytes 0 Platelet Estimate Markedly decreased Anisocytosis (manual) Slight Macrocytosis Slight Sodium Level 141 136-145 mmol/L Potassium Level 6.3 *H 3.5-5.1 mmol/L Chloride Level 115 H 98-107 mmol/L Carbon Dioxide Level 13 L 20-31 mmol/L Anion Gap 13 5-15 Blood Urea Nitrogen 56 H 9-23 mg/dL Creatinine 2.84 H 0.700-1.30 mg/dL Glomerular Filtration Rate Calc 24 >90 mL/min BUN/Creatinine Ratio 19.7 10.0-20.0 Serum Glucose 101 74-106 mg/dL Calcium Level 8.0 L 8.7-10.4 mg/dL Total Bilirubin 3.2 H 0.2-1.0 mg/dL Aspartate Amino Transferase (AST) 476 H 13-40 U/L Alanine Aminotransferase (ALT) 151 H 7-40 U/L Alkaline Phosphatase 154 H 46-116 U/L Troponin I High Sensitivity 4 </=54 ng/L Total Protein 5.8 5.7-8.2 g/dL Albumin 2.6 L 3.2-4.8 g/dL PATIENT: PREDOM,COOPER ACCT: [id number] UNIT: [id number] : 1960 LOC: OVERFLOW ROOM / BED: [address] [place] [address] AGE / SEX: 64 / M ADM STATUS: ADM IN SERVICE 1535 ORDERING PHYSICIAN: CARMEN ROMAN MD PROCEDURE(s): KIDUS - KIDNEY REASON: silke ORDER NUMBER(s): [id number], ACCESSION NUMBER(s): [id number] INDICATION: silke TECHNIQUE: Multiple real-time sonographic images of the kidneys and bladder were obtained. COMPARISON: US KIDNEY RETROPERITONEUM on DOS: 01/31/25 FINDINGS: The right kidney measures 11.9 cm in length, which is normal in size. There is normal echogenicity of the right kidney. No hydronephrosis. The left kidney measures 11.6 cm in length, which is normal in size. There is normal echogenicity of the left kidney. No hydronephrosis. Prevoid bladder volume is 300 mL. Bladder wall is 1.3 mm. There is a 6.2 x 2.6 x 6.7 cm anechoic structure posterior to the bladder of uncertain etiology and or significance. IMPRESSION: 1. Normal sonographic appearance of the kidneys. No hydronephrosis. 2. 6.7 cm anechoic structure posterior to the bladder of uncertain etiology and or significance clinical correlation recommended. ORDERING PHYSICIAN: HILARIA CERNA MD PROCEDURE(s): CXRP - CHEST PORTABLE REASON: sob ORDER NUMBER(s): [id number], ACCESSION NUMBER(s): [id number] CHEST RADIOGRAPH INDICATION: sob TECHNIQUE: Single frontal view of the chest was obtained. COMPARISON: XR CHEST 1 VIEW on DOS: 04/15/25, XY CHEST PORTABLE on DOS: 02/26/25 FINDINGS: Similar-appearing nonspecific bilateral interstitial prominence. No focal consolidation. No significant pleural effusion. No pneumothorax. Stable cardiomediastinal silhouette. IMPRESSION: No focal consolidation. SEPSIS Sepsis Screen Date sepsis recognized/suspect: May 08, 2025 Time Sepsis recognized/suspect: 0654 Recent Procedure: No On Antibiotic Therapy: No Respiratory Rate >20: No Heart Rate >90: No Temp<36 C (96.8 F) or >38.3 C: No SBP <90 or MAP <65 mmHG: No New Acute Mental Status Change: No Is the patient on CPAP, BIPAP,: No Physician Orders Chest Portable (05/08/25 06:36) Urinalysis (05/08/25 06:36) Sodium Chloride 0.9% (05/08/25 07:15) Blood Culture (05/08/25 07:05) Potassium (05/08/25 11:43) *[facility] (05/08/25 07:43) Type And Screen (05/08/25 07:43) Hydralazine Injection (Apresoline Inject (05/08/25 11:30) Albuterol Medneb (Ventolin Medneb) (05/08/25 11:30) Ipratropium Medneb (Atrovent Medneb) (05/08/25 11:30) Complete Blood Count (05/08/25 13:00) Admit (05/08/25 11:22) Allergies (05/08/25 11:22) Code Status (05/08/25 11:22) Sodium Chloride Lock (Saline Lock Ns) (05/08/25 14:00) Oxygen Per Hour (05/08/25 11:22) Hydrocodone-Acet 5/325mg Tab ([place] 5/32 (05/08/25 11:30) Ondansetron Hcl (Zofran) (05/08/25 11:30) Multiple Vitamin Tablet (Mvi Tab) (05/09/25 10:00) Fall Risk Precautions In Place QSHIFT (05/08/25 11:22) Complete Blood Count (05/09/25 04:00) Comprehensive Metabolic Panel (05/09/25 04:00) Cardiac Diet-2gna,Lofat,Lochol (05/08/25 Lunch) Condition: Serious (05/08/25 11:22) Acetaminophen Tablet (Tylenol Tablet) (05/08/25 11:30) Maintain Bed Rest (05/08/25 11:22) Sequential Compression Device (05/08/25 ) Nitroglycerin Sublingual (Ntrostat Subli (05/08/25 11:30) Morphine Sulfate Injection (05/08/25 11:30) Stat Ekg For Chest Pain (05/08/25 11:22) Notify Md Of Changes From Base (05/08/25 11:22) Area Operations Manager For 24 Hours (05/08/25 11:22) Emergency Dysrhythmia Protocol (05/08/25 11:22) Rhythm Strips Once Every Shift (05/08/25 11:22) Oxygen By Nasal Cannula (05/08/25 11:22) Vital Signs Date Time Temp Pulse Resp B/P (MAP) Pulse Ox O2 Delivery O2 Flow Rate FiO2 05/08/25 10:47 97.8 74 20 99/53 97.8 05/08/25 10:28 97.8 78 27 106/45 97.8 05/08/25 09:20 110/48 05/08/25 08:27 16 97 Nasal Cannula* 3 32 05/08/25 08:24 67 22 93 Nasal Cannula* 3 32 05/08/25 08:00 97.5 67 18 104/46 (65) 93 97.5 05/08/25 07:05 67 95/43 (60) 05/08/25 06:57 66 90/35 (53) 05/08/25 06:52 98.1 65 18 99/37 (57) 94 98.1 05/08/25 06:52 66 18 90 Nasal Cannula* 4 36 05/08/25 06:49 66 05/08/25 06:49 98.0 67 22 96/58 96 98.0 Laboratory Tests Test 05/08/25 06:42 05/08/25 07:17 White Blood Count 155.9 10^3/uL (4.4-10.8) *H Lactic Acid Level 2.3 mmol/L (0.4-2.0) *H Medications Medications Dose Ordered Sig/Raulito Route Start Time Stop Time Status Last Admin Dose Admin Albuterol 20 mg ONCE ONCE NEB 05/08/25 07:45 05/08/25 07:46 DC 05/08/25 08:26 20 MG Calcium Gluconate/ Sodium Chloride 50 ml @ 120 mls/hr ONCE ONCE IV 05/08/25 07:45 05/08/25 08:09 DC 05/08/25 08:45 120 MLS/HR Ceftriaxone Sodium 50 ml @ 100 mls/hr ONCE ONCE IV 05/08/25 07:15 05/08/25 07:44 DC 05/08/25 09:55 100 MLS/HR Dextrose 50 ml ONCE ONCE IV 05/08/25 07:45 05/08/25 07:46 DC 05/08/25 09:19 50 ML Furosemide 20 mg ONCE ONCE IV 05/08/25 07:45 05/08/25 07:46 DC 05/08/25 09:20 20 MG Insulin Human Regular 10 units ONCE ONCE IV 05/08/25 07:45 05/08/25 07:46 DC 05/08/25 09:49 10 UNITS Sodium Bicarbonate 50 ml ONCE ONCE IV 05/08/25 07:45 05/08/25 07:46 DC 05/08/25 09:19 50 ML Sodium Chloride 1,000 ml @ 1,000 mls/hr Q1H ONCE IVB 05/08/25 07:15 05/08/25 08:14 DC 05/08/25 07:09 1,000 MLS/HR Zirconium Oxide 10 gm ONCE ONCE PO 05/08/25 07:45 05/08/25 07:46 DC 05/08/25 09:19 10 GM Assessment/Plan Assessment/Plan Severe anemia Hypotension Liver disease Sepsis, unspecified organisms Thrombocytopenia Hyperkalemia COPD with acute exacerbation Adult failure to thrive Acute kidney failure, unspecified Generalized weakness Plan 1. Admit to telemetry unit 2. Breathing treatment 3. Pain control management 4. IV antibiotic management 5. Management of fluids and electrolytes 6. Consultation for Nephrology/hospitalist 7. Diagnostic test renal ultrasound 8. DVT prophylaxis-SCDs 9. Repeat labs CBC now, CBC CMP in a.m. 10. Transfused 2 units of PRBC 11. Continue with current medical management 12. Treatment plan discussed with patient/sister and RN. Patient/sister verbalized understanding. Plan discussed with: Patient, Other (RN) My Orders Orders - DEJAN PA DNP Procedure Category Date Status Time Hydralazine Injection PHA 05/08/25 Verified (Apresoline Inject 11:30 Albuterol Medneb PHA 05/08/25 Verified (Ventolin Medneb) 11:30 Ipratropium Medneb PHA 05/08/25 Verified (Atrovent Medneb) 11:30 Complete Blood Count LAB 05/08/25 Verified 13:00 Admit ADMIT 05/08/25 Verified 11:22 Allergies JANE 05/08/25 Verified 11:22 Code Status CODE 05/08/25 Verified 11:22 Sodium Chloride Lock PHA 05/08/25 Verified (Saline Lock Ns) 14:00 Oxygen Per Hour RT 05/08/25 Verified 11:22 Hydrocodone-Acet PHA 05/08/25 Verified 5/325mg Tab ([place] 11:30 Ondansetron Hcl PHA 05/08/25 Verified (Zofran) 11:30 Multiple Vitamin PHA 05/09/25 Verified Tablet (Mvi Tab) 10:00 Fall Risk Precautions JANE 05/08/[address] 11:22 Complete Blood Count LAB 05/09/25 Verified 04:00 Comprehensive LAB 05/09/25 Verified Metabolic Panel 04:00 Cardiac DIET 05/08/25 Verified Diet-2gna,Lofat,Lochol Lunch Condition: Serious JANE 05/08/25 Verified 11:22 Acetaminophen Tablet PHA 05/08/25 Verified (Tylenol Tablet) 11:30 Maintain Bed Rest JANE 05/08/25 Verified 11:22 Sequential JANE 05/08/25 Verified Compression Device Nitroglycerin PHA 05/08/25 Verified Sublingual (Ntrostat 11:30 Morphine Sulfate PHA 05/08/25 Verified Injection 11:30 Stat Ekg For Chest JANE 05/08/25 Verified Pain 11:22 Notify Md Of Changes JANE 05/08/25 Verified From Base 11:22 Area Operations Manager For JANE 05/08/25 Verified 24 Hours 11:22 Emergency Dysrhythmia JANE 05/08/25 Verified Protocol 11:22 Rhythm Strips Once JANE 05/08/25 Verified Every Shift 11:22 Oxygen By Nasal RT 05/08/25 Verified Cannula 11:22 Problem List: (1) Severe anemia (2) Hypotension (3) Liver disease (4) Sepsis, unspecified organism (5) Thrombocytopenia (6) Hyperkalemia (7) COPD with acute exacerbation (8) Adult failure to thrive (9) Acute kidney failure, unspecified (10) Generalized weakness Date of Service: May 08, 2025 Billing Provider: DEJAN PA DNP Common Visit Codes: 41180-OZBSGRT INP/OBS CARE (HIGH) DEJAN PA DNP May 08, 2025 11:32
[2025-05-08 11:34] LABS: Urine Protein, UAD TRACE (Negative)
[2025-05-08] MEDS: SODIUM CHLORIDE 0.9% 1,000 ML IV ONE (12:24)
[2025-05-08] MEDS: SODIUM CHLOR 0.9% PF (SALINE LOCK) 10ML VIAL/SYR IV SCH (14:19)
--- NOTE | 2025-05-08 15:35 | DVHINCON2 ---
Date of service: May 08, 2025 Referring Physician Hospitalist Reason for Consultation Acute kidney injury History of Present Illness 64-year-old male with past medical history of chronic long-term smoker with complication of severe COPD and emphysema on continuous 4 L oxygen, diagnosed with myelodysplastic syndrome on previous admission, history of acute kidney injury requiring dialysis but had renal recovery with baseline renal function CKD two, hypertension who presents to the hospital complaining of abdominal pain brought in by was found to have a hemoglobin of four platelet level of 22 and WBC count of [id number]. Nephrology was consulted due to elevated creatinine level. Patient is currently not on any pressors and is receiving 2 units of blood in the ER his is at bedside who provides his medical history Allergies: Coded Allergies: NO KNOWN ALLERGIES (Unverified , 02/01/20) Home Meds Active Scripts Tiotropium [place] Monohydrate (Spiriva Respimat) 2.5 Mcg/Act Spr, 2.5 MCG IN DAILY for 30 Days, #30 SPRAY 1 Refill Prov:MIRANDA TRAN MD 02/23/25 Ferrous Sulfate (FERROUS SULFATE) 325 Mg Tb, 1 TAB PO DAILY for 30 Days, #30 TAB 0 Refills Prov:MIRANDA TRAN MD 02/21/25 Carvedilol (Coreg) 25 Mg Tab, 1 TAB PO BID for 30 Days, #60 TAB 0 Refills Prov:MIRANDA TRAN MD 02/21/25 Albuterol Sulfate (Albuterol Sulfate Hfa) 108 Mcg/Act Aer, 108 MCG IN DAILY for 30 Days, #30 AER Prov:MIRANDA TRAN MD 02/21/25 Reported Medications Hydrochlorothiazide (Hydrochlorothiazide) 25 Mg Tab, 25 MG PO DAILY for 30 Days, MG 02/11/25 Amlodipine Besylate (Amlodipine Besylate) 10 Mg Tab, 10 MG PO DAILY, TAB 02/11/25 Ferrous Sulfate (Ferosul) 325 Mg Tab, 1 TAB PO DAILY 02/09/25 Nicotine (Nicotine Transdermal Syst) 21 Mg/24 Hr Dis, 1 PATCH TOP DAILY 02/09/25 Current Medications Current Medications Medications (Trade) Dose Ordered Sig/Raulito Route PRN Reason Start Time Stop Time Status Last Admin Hydralazine HCl (Apresoline Injection) 10 mg Q6HP PRN IV SBP>150 05/08/25 11:30 Albuterol (Ventolin Medneb) 2.5 mg Q4HPRN PRN NEB SHORTNESS OF BREATH 05/08/25 11:30 Ipratropium [place] (Atrovent Medneb) 0.5 mg Q4HPRN PRN NEB SHORTNESS OF BREATH 05/08/25 11:30 Sodium Chloride (Saline Lock Ns) 10 ml Q8HR IV 05/08/25 14:00 05/08/25 14:19 Acetaminophen/ Hydrocodone Bitart ([place] 5/325MG Tab) 1 tab Q4HP PRN PO MODERATE PAIN (4-6 PAIN SCALE) 05/08/25 11:30 Ondansetron HCl (Zofran) 4 mg Q4HP PRN IV NAUSEA / VOMITING 05/08/25 11:30 Multivitamins (Mvi Tab) 1 tab DAILY PO 05/09/25 10:00 Acetaminophen (Tylenol Tablet) 650 mg Q6HP PRN PO PAIN SCALE 1-3 OR TEMP>100.4 05/08/25 11:30 Nitroglycerin (Ntrostat Sublingual) 0.4 mg Q5MINP PRN SL FOR CHEST PAIN 05/08/25 11:30 Morphine Sulfate 2 mg Q30M PRN IV FOR CHEST PAIN 05/08/25 11:30 Family History: Patient reports no known family medical history. Social History smoker Review of Systems Weakness and abdominal pain H&P Exam Vital Signs/I&O Vital Sign Date Time Temp Pulse Resp B/P (MAP) Pulse Ox O2 Delivery O2 Flow Rate FiO2 05/08/25 15:22 97.9 74 20 110/55 94 3.0 32 97.9 05/08/25 08:27 Nasal Cannula* Physical Exam Chronically ill-appearing male distended jugular veins as well as engorged cranial temporal veins Barrel chest abdomen is soft no pitting edema Labs/Diagnostic Data Labs/Diagnostic Data Laboratory Tests Test 05/08/25 11:40 05/08/25 11:03 05/08/25 07:17 05/08/25 06:42 Range/Units Potassium Level 5.5 H 6.3 *H 3.5-5.1 mmol/L Urine Color Yellow Yellow Urine Clarity Clear Clear Urine pH 5.0 5.0-9.0 Urine Specific [place] 1.012 1.001-1.035 Urine Protein Trace H Negative Urine Ketones Negative Negative Urine Blood Negative Negative /uL Urine Nitrite Negative Negative Urine Bilirubin Negative Negative Urine Urobilinogen 3 H Negative mg/dL Urine Leukocyte Esterase Negative Negative /uL Urine RBC 1 0 - 3 /hpf Urine Microscopic WBC 1 0-3 /HPF Urine Squamous Epithelial Cells Few <5 /hpf Urine Bacteria None seen None Seen /hpf Urine Hyaline Casts Few 0 - 2 /lpf Urine Glucose Normal Normal mg/dL Lactic Acid Level 2.3 *H 0.4-2.0 mmol/L White Blood Count 155.9 *H 4.4-10.8 10^3/uL Red Blood Count 1.49 L 4.5-5.90 10^6/uL Hemoglobin 4.5 *L 13.5-17.5 g/dL Hematocrit 16.8 L 41.0-53.0 % Mean Corpuscular Volume 113.4 H 80.0-100.0 fL Mean Corpuscular Hemoglobin 30.4 28.0-32.0 pg Mean Corpuscular Hemoglobin Concent 26.8 L 32.0-36.0 g/dL Red Cell Distribution Width 27.8 H 11.8-14.3 % Platelet Count 22 L 140-450 10^3/uL Mean Platelet Volume 9.7 6.9-10.8 fL Neutrophils (%) (Auto) 37.0-80.0 % Lymphocytes (%) (Auto) 10.0-50.0 % Monocytes (%) (Auto) 0.0-12.0 % Basophils (%) (Auto) 0.0-2.0 % Neutrophils # (Auto) 1.6-8.6 10 ^3/uL Lymphocytes # (Auto) 0.4-5.4 10 ^3/uL Monocytes # (Auto) 0-1.3 10 ^3/uL Differential Total Cells Counted 100.0 100 Neutrophils % (Manual) 23 L 37.0-80.0 Band Neutrophils % (Manual) 6 Lymphocytes % (Manual) 23 10.0-50.0 Monocytes % (Manual) 21 H 0-12 Eosinophils % (Manual) 1 0-7 Basophils % (Manual) 0 0.0-2.0 Metamyelocytes % (manual) 2 Myelocytes % (Manual) 24 Promyelocytes % (Manual) 0 Blast Cells % (Manual) 0 Nucleated Red Blood Cells 21.0 % Reactive Lymphocytes 0 Platelet Estimate Markedly decreased Anisocytosis (manual) Slight Macrocytosis Slight Sodium Level 141 136-145 mmol/L Chloride Level 115 H 98-107 mmol/L Carbon Dioxide Level 13 L 20-31 mmol/L Anion Gap 13 5-15 Blood Urea Nitrogen 56 H 9-23 mg/dL Creatinine 2.84 H 0.700-1.30 mg/dL Glomerular Filtration Rate Calc 24 >90 mL/min BUN/Creatinine Ratio 19.7 10.0-20.0 Serum Glucose 101 74-106 mg/dL Calcium Level 8.0 L 8.7-10.4 mg/dL Total Bilirubin 3.2 H 0.2-1.0 mg/dL Aspartate Amino Transferase (AST) 476 H 13-40 U/L Alanine Aminotransferase (ALT) 151 H 7-40 U/L Alkaline Phosphatase 154 H 46-116 U/L Troponin I High Sensitivity 4 </=54 ng/L Total Protein 5.8 5.7-8.2 g/dL Albumin 2.6 L 3.2-4.8 g/dL Assessment Acute kidney injury hemodynamically mediated Chronic kidney disease stage 2 Hyperkalemia Myelodysplastic syndrome r/o acute disease Thrombocytopenia Severe anemia Chronic severe COPD emphysema Obtain phosphorus, uric acid, LDH level IV sodium bicarbonate push Lasix 40 IV push 2 units PRBC currently ordered Obtain ultrasound of the kidney Strict Is&Os Monitor oxygen level Recommend workup of patient's elevated WBC consider Hematology consultation No emergent indication for dialysis at this time however prognosis is guarded Plan discussed with: Patient, Spouse CARMEN ROMAN MD May 08, 2025 15:35
[2025-05-08] MEDS: FUROSEMIDE 100 MG/10ML VIAL IV ONE (16:11)
[2025-05-08] MEDS: SODIUM BICARB 8.4% 50Meq/50ml SYR Vial IV ONE (16:12)
--- NOTE | 2025-05-08 16:23 | DVH ---
INDICATION: silke TECHNIQUE: Multiple real-time sonographic images of the kidneys and bladder were obtained. COMPARISON: US KIDNEY RETROPERITONEUM on DOS: 01/31/25 FINDINGS: The right kidney measures 11.9 cm in length, which is normal in size. There is normal echogenicity of the right kidney. No hydronephrosis. The left kidney measures 11.6 cm in length, which is normal in size. There is normal echogenicity of the left kidney. No hydronephrosis. Prevoid bladder volume is 300 mL. Bladder wall is 1.3 mm. There is a 6.2 x 2.6 x 6.7 cm anechoic structure posterior to the bladder of uncertain etiology and or significance. IMPRESSION: 1. Normal sonographic appearance of the kidneys. No hydronephrosis. 2. 6.7 cm anechoic structure posterior to the bladder of uncertain etiology and or significance clinical correlation recommended.
[2025-05-08] MEDS ORDERED: IBUPROFEN 600 MG TAB PO PRN (17:15)
[2025-05-08 17:33] LABS: Hematocrit 21.5 % (41.0-53.0); Mean Corpuscular Hemoglobin 30.1 pg (28.0-32.0); Mean Corpuscular Volume 105.2 fL (80.0-100.0)
[2025-05-08 17:37] LABS: Hemoglobin 6.2 g/dL (13.5-17.5)
[2025-05-08 17:41] LABS: Potassium 4.7 mmol/L (3.5-5.1)
[2025-05-08 17:42] LABS: Anion Gap 15 (5-15)
[2025-05-08 17:47] LABS: BUN/Creatinine Ratio 26.1 (10.0-20.0); Glucose 85 mg/dL (74-106)
[2025-05-08 17:48] LABS: Blood Urea Nitrogen 66 mg/dL (9-23); Calcium 7.5 mg/dL (8.7-10.4); Carbon Dioxide 15 mmol/L (20-31); Chloride 115 mmol/L (98-107); Sodium 145 mmol/L (136-145)
[2025-05-08 17:59] LABS: Uric Acid 24.8 mg/dL (3.7-9.2)
[2025-05-08 21:36] LABS: Total Cells Counted 100.0 (100)
[2025-05-08 21:37] LABS: Anisocytosis Slight; Macrocytosis Moderate
[2025-05-08 21:40] LABS: Nucleated Red Blood Cells % 40.0 %
[2025-05-09] VITALS (17 sets, daily range): BP systolic 112–127; BP diastolic 41–74; PULSE 69–78; RESP 16–20; TEMP 97.7–98.5; O2SAT 93–99
[2025-05-09] MEDS: IPRATROPIUM BROM 0.5 MG/2.5ML INH SOL NEB PRN (09:23)
[2025-05-09] MEDS: ALBUTEROL SULF 2.5 MG/0.5ML(0.5%) NEB SOLN NEB PRN (09:23)
[2025-05-09] MEDS: MULTIPLE VITAMIN TAB PO SCH (11:04)
[2025-05-09 11:50] LABS: Hematocrit 25.3 % (41.0-53.0); Hemoglobin 8.0 g/dL (13.5-17.5); Mean Corpuscular Hemoglobin 30.3 pg (28.0-32.0); Mean Corpuscular Volume 96.1 fL (80.0-100.0)
[2025-05-09 12:00] LABS: Anion Gap 15 (5-15); BUN/Creatinine Ratio 23.1 (10.0-20.0); Potassium 4.1 mmol/L (3.5-5.1); Sodium 143 mmol/L (136-145)
[2025-05-09 12:11] LABS: Alanine Aminotransferase 110 U/L (7-40); Albumin 2.6 g/dL (3.2-4.8); Alkaline Phosphatase 150 U/L (46-116); Bilirubin, Total 2.4 mg/dL (0.2-1.0); Blood Urea Nitrogen 54 mg/dL (9-23); Calcium 7.8 mg/dL (8.7-10.4); Carbon Dioxide 17 mmol/L (20-31); Chloride 111 mmol/L (98-107); Glucose 136 mg/dL (74-106); Total Protein 5.7 g/dL (5.7-8.2)
[2025-05-09] MEDS: LIDOCAINE 2%HCL (LOCAL ANESTH.) INJ 10ml MDV ONE (12:13)
--- NOTE | 2025-05-09 12:13 | DVHPN2 ---
Progress Note Date Seen: May 09, 2025 Medical Necessity Reason Pt with a Central, PICC or Fol: No Subjective Review of Systems: RESPIRATORY:Abnormal Other Systems: Patient seen and examined by myself today in follow-up Objective vital signs Vital Sign Date Time Temp Pulse Resp B/P (MAP) Pulse Ox O2 Delivery O2 Flow Rate FiO2 05/09/25 09:29 75 20 98 05/09/25 09:23 Nasal Cannula* 3 32 05/09/25 09:00 97.9 118/58 (78) 97.9 Total Intake and Output 05/08/25 05/08/25 05/09/25 15:00 23:00 07:00 Intake Total 2300 ml 900 ml 2100 ml Output Total 0 ml 300 ml 420 ml Balance 2300 ml 600 ml 1680 ml medications Current Medications Medications Dose Ordered Sig/Raulito Route Start Time Stop Time Status Last Admin Dose Admin Hydralazine HCl 10 mg Q6HP PRN IV 05/08/25 11:30 Albuterol 2.5 mg Q4HPRN PRN NEB 05/08/25 11:30 05/09/25 09:23 2.5 MG Ipratropium [place] 0.5 mg Q4HPRN PRN NEB 05/08/25 11:30 05/09/25 09:23 0.5 MG Sodium Chloride 10 ml Q8HR IV 05/08/25 14:00 05/09/25 11:04 10 ML Acetaminophen/ Hydrocodone Bitart 1 tab Q4HP PRN PO 05/08/25 11:30 Ondansetron HCl 4 mg Q4HP PRN IV 05/08/25 11:30 Multivitamins 1 tab DAILY PO 05/09/25 10:00 05/09/25 11:04 1 TAB Nitroglycerin 0.4 mg Q5MINP PRN SL 05/08/25 11:30 Morphine Sulfate 2 mg Q30M PRN IV 05/08/25 11:30 Ibuprofen 600 mg Q8HP PRN PO 05/08/25 17:15 Ceftriaxone Sodium 50 ml @ 100 mls/hr DAILY@09 IV 05/09/25 09:00 05/09/25 11:05 100 MLS/HR Metronidazole 100 ml @ 100 mls/hr Q8HR IV 05/09/25 08:30 Morphine Sulfate 2 mg Q4HPRN PRN IV 05/09/25 12:15 UNV Examination: LUNGS:Normal, LUNGS:Abnormal, MSK:Normal laboratory and microbiology Laboratory Tests 05/09/25 11:01 Test 05/09/25 11:01 Range/Units Serum Glucose 136 H 74-106 mg/dL Microbiology Date/Time Source Procedure Growth Status 05/08/25 07:23 Blood Blood Culture - Preliminary NO GROWTH AFTER 24 HOURS OF INCUBATION. Resulted Problem List/Assessment/Plan Problem List/Assessment/Plan Acute kidney injury superimposed Chronic Kidney Disease secondary hemodynamic mediated Tumor lysis syndrome Acute on chronic respiratory failure, O2 supplement Hyperkalemia Acute Leukemia Thrombocytopenia Severe anemia Chronic severe COPD emphysema Sepsis Recommendations Kidney function slightly improved Increased urine output Strict I&Os Kidney ultrasound reported within normal limit IV fluid hydration with a bicarb Hematology consult We will continue to follow Plan discussed with: Patient CC Plasma Assessment Blood Product Administration S: [id number] JAVAD HERMAN MD May 09, 2025 12:13
[2025-05-09] MEDS: fentaNYL CITRATE 100 MCG/2 ML VL ONE (12:24)
[2025-05-09] MEDS: MIDAZOLAM HCL 2MG/2ML 2ml VIAL (1mg/ml) ONE (12:24)
[2025-05-09] MEDS ORDERED: HYDROmorphone HCL 2 MG/ML VL/or syr IV PRN (12:30)
[2025-05-09] MEDS ORDERED: MORPHINE SULFATE 4 MG/ML SYR/VIAL IV PRN (12:30)
[2025-05-09 13:15] LABS: Nucleated Red Blood Cells % 79.0 %; Total Cells Counted 100.0 (100)
[2025-05-09 13:50] LABS: Magnesium 2.4 mg/dL (1.6-2.6)
[2025-05-09 14:06] LABS: Hepatitis B Surface Antigen Negative (Negative)
--- NOTE | 2025-05-09 14:12 | DVH ---
CT PELVIS WO CONTRAST, CT CT GUIDANCE FOR NEEDLE PLACEME, HISTORY: BONE MARROW BX COMPARISON: CT ANGIO PELVIS on DOS: 01/31/25, CT CHEST/ABD/PEL on DOS: 01/14/25, CT ABD/PEL W - IV on DOS: 05/13/24 PROCEDURE: Informed consent and time-out was performed before the procedure. Conscious sedation was performed by the interventional radiology nurse. The pelvic bone was marked, sterilized, draped, and locally anesthetized using approximately 5 ml of 1% lidocaine. Axial CT images were used for localization. A 11 gauge [employer] Bone Biopsy kit was used to take 15 mL aspirate and 1 core sample. The biopsy needle was then removed. No immediate complications noted. FINDINGS: Axial CT images demonstrates biopsy needle within the right posterior pelvic bone. IMPRESSION: CT-guided bone marrow aspiration biopsy of the right posterior pelvic bone.
--- NOTE | 2025-05-09 14:12 | DVH ---
CT PELVIS WO CONTRAST, CT CT GUIDANCE FOR NEEDLE PLACEME, HISTORY: BONE MARROW BX COMPARISON: CT ANGIO PELVIS on DOS: 01/31/25, CT CHEST/ABD/PEL on DOS: 01/14/25, CT ABD/PEL W - IV on DOS: 05/13/24 PROCEDURE: Informed consent and time-out was performed before the procedure. Conscious sedation was performed by the interventional radiology nurse. The pelvic bone was marked, sterilized, draped, and locally anesthetized using approximately 5 ml of 1% lidocaine. Axial CT images were used for localization. A 11 gauge [employer] Bone Biopsy kit was used to take 15 mL aspirate and 1 core sample. The biopsy needle was then removed. No immediate complications noted. FINDINGS: Axial CT images demonstrates biopsy needle within the right posterior pelvic bone. IMPRESSION: CT-guided bone marrow aspiration biopsy of the right posterior pelvic bone.
[2025-05-09 14:25] LABS: Hepatitis C Antibody Negative (Negative)
[2025-05-09] MEDS: SODIUM BICARB 50mEq/50ml Vial 50 ML in SOD CHL 0.45% 1,000 ML IV SCH (14:40)
--- NOTE | 2025-05-09 15:48 | DVHPN2 ---
Assessment/Plan Assessment/Plan progress note 64 M with COPD on home o2, MDS, admitted for abdominal pain w/o NVD, found extremely elevated WBC, TIM, hyperK. Seen by nephro. directly discussed w/ path and IR, smear showed leukoerythroblastic picture, for bone bx today. 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 severe anemia req transfusion chronic hypoxic respiratory failure COPD group E tumor lysis syndrome microcytic anemia hyperkalemia TMI VMN on CKD s/p 1 unit PRBC ex smoker protein calorie malnutrition [facility] for hemeonc smear transfuse keep HB >7 bicarb drip alupurinol iv fluid pain mgmt bone bx diet cardiac dvt ppx lovenox tomorrow full code condition critical prognosis poor crit care time 35 minutes Plan discussed with: Patient, Spouse My Orders Orders - MIRANDA TRAN MD Procedure Category Date Status Time Bone Marrow BD 05/09/25 Transmitted Aspiration Lt 11:38 Leukemia LAB 05/09/25 Logged Immunophenotyping 11:38 Pathology LAB 05/09/25 Logged Miscellaneous Order 11:38 Bone Marrow BD 05/09/25 Transmitted Aspiration Bi 12:06 * Radiologist Consult CONS 05/09/25 Transmitted 12:06 Hydromorphone PHA 05/09/25 In Process Injection (Dilaudid 12:30 Date of Service: May 09, 2025 Billing Provider: MIRANDA TRAN MD Common Visit Codes: 95556-PAGIUIOM CARE 30-74 MIN MIRANDA TRAN MD May 09, 2025 15:48
[2025-05-09] MEDS: CARVEDILOL 12.5 MG TAB PO SCH (23:07)
[2025-05-10] VITALS (14 sets, daily range): BP systolic 112–143; BP diastolic 50–65; PULSE 63–94; RESP 16–19; TEMP 97.7–98.3; O2SAT 92–100
[2025-05-10 05:38] LABS: Hemoglobin 7.4 g/dL (13.5-17.5)
[2025-05-10 05:43] LABS: Hematocrit 24.9 % (41.0-53.0); Mean Corpuscular Hemoglobin 28.7 pg (28.0-32.0); Mean Corpuscular Volume 96.5 fL (80.0-100.0)
[2025-05-10 06:35] LABS: Anion Gap 13 (5-15); Potassium 4.4 mmol/L (3.5-5.1); Sodium 140 mmol/L (136-145)
[2025-05-10 06:41] LABS: BUN/Creatinine Ratio 25.0 (10.0-20.0); Glucose 89 mg/dL (74-106)
[2025-05-10 06:49] LABS: Blood Urea Nitrogen 49 mg/dL (9-23); Calcium 7.6 mg/dL (8.7-10.4); Carbon Dioxide 17 mmol/L (20-31); Chloride 110 mmol/L (98-107)
[2025-05-10 07:03] LABS: Total Cells Counted 100.0 (100)
[2025-05-10 07:04] LABS: Nucleated Red Blood Cells % 53.0 %
[2025-05-10] MEDS: SODIUM BICARB 50mEq/50ml Vial 100 ML in SOD CHL 0.45% 1,000 ML IV SCH (10:52)
--- NOTE | 2025-05-10 11:28 | DVHPN2 ---
Progress Note Date Seen: May 10, 2025 Medical Necessity Reason Pt with a Central, PICC or Fol: No Subjective Patient reports: No new complaints Other Systems: Patient seen and examined by myself today in follow-up Objective vital signs Vital Sign Date Time Temp Pulse Resp B/P (MAP) Pulse Ox O2 Delivery O2 Flow Rate FiO2 05/10/25 10:39 94 114/62 05/10/25 09:00 98.2 16 94 98.2 05/10/25 07:51 Nasal Cannula 3.0 05/10/25 07:51 32 Total Intake and Output 05/09/25 05/09/25 05/10/25 15:00 23:00 07:00 Intake Total 150 ml 920 ml 700 ml Output Total 800 ml Balance 150 ml 120 ml 700 ml medications Current Medications Medications Dose Ordered Sig/Raulito Route Start Time Stop Time Status Last Admin Dose Admin Albuterol 2.5 mg Q4HPRN PRN NEB 05/08/25 11:30 05/09/25 17:57 2.5 MG Ipratropium Kiron 0.5 mg Q4HPRN PRN NEB 05/08/25 11:30 05/09/25 17:57 0.5 MG Sodium Chloride 10 ml Q8HR IV 05/08/25 14:00 05/10/25 06:39 10 ML Acetaminophen/ Hydrocodone Bitart 1 tab Q4HP PRN PO 05/08/25 11:30 Ondansetron HCl 4 mg Q4HP PRN IV 05/08/25 11:30 Multivitamins 1 tab DAILY PO 05/09/25 10:00 05/10/25 10:37 1 TAB Morphine Sulfate 2 mg Q30M PRN IV 05/08/25 11:30 Ceftriaxone Sodium 50 ml @ 100 mls/hr DAILY@09 IV 05/09/25 09:00 05/10/25 10:39 100 MLS/HR Metronidazole 100 ml @ 100 mls/hr Q8HR IV 05/09/25 08:30 05/10/25 06:39 100 MLS/HR Hydromorphone HCl 1 mg Q4HPRN PRN IV 05/09/25 12:30 Carvedilol 25 mg Q12HR PO 05/09/25 22:00 05/10/25 10:39 25 MG Sodium Bicarbonate 100 ml/Sodium Chloride 1,100 ml @ 100 mls/hr Q11H IV 05/10/25 09:45 05/10/25 10:52 100 MLS/HR Examination: LUNGS:Normal, CVS:Normal, MSK:Normal laboratory and microbiology Laboratory Tests 05/10/25 04:44 Test 05/10/25 04:44 Range/Units Serum Glucose 89 74-106 mg/dL Microbiology Date/Time Source Procedure Growth Status 05/09/25 04:10 Nose MRSA Screen - Final Complete 05/08/25 07:23 Blood Blood Culture - Preliminary NO GROWTH AFTER 48 HOURS OF INCUBATION. Resulted Problem List/Assessment/Plan Problem List/Assessment/Plan Acute kidney injury superimposed Chronic Kidney Disease secondary hemodynamic mediated Tumor lysis syndrome Acute on chronic respiratory failure, O2 supplement Hyperkalemia , resolved Acute Leukemia Thrombocytopenia Severe anemia Chronic severe COPD emphysema Sepsis Recommendations Kidney function is improving Increased urine output Strict I&Os Kidney ultrasound reported within normal limit IV fluid hydration with a bicarb Hematology consult We will continue to follow Plan discussed with: Patient My Orders My Orders Orders - JAVAD HERMAN MD Procedure Category Date Status Time Urine Sodium LAB 05/09/25 Logged 12:15 Urine LAB 05/09/25 Logged Protein/Creatinine Urine Creatinine LAB 05/09/25 Logged 12:15 Urinalysis LAB 05/09/25 Logged 12:15 Sod Chl 0.45% PHA 05/10/25 In Process (Sodi... W/Sodium 09:45 Communication Order ORDERS 05/10/25 Transmitted 09:42 CC Plasma Assessment Blood Product Administration S: [id number] JAVAD HERMAN MD May 10, 2025 11:28
--- NOTE | 2025-05-10 14:55 | DVHDS2 ---
Discharge Summary Date of Admission May 08, 2025 at 11:22 Date of Discharge: May 10, 2025 Labs/Diagnostic Data: Laboratory Results Test 05/10/25 04:44 05/09/25 11:01 05/08/25 17:10 05/08/25 11:03 White Blood Count 117.2 10^3/uL (4.4-10.8) Red Blood Count 2.58 10^6/uL (4.5-5.90) Hemoglobin 7.4 g/dL (13.5-17.5) Hematocrit 24.9 % (41.0-53.0) Mean Corpuscular Volume 96.5 fL (80.0-100.0) Mean Corpuscular Hemoglobin 28.7 pg (28.0-32.0) Mean Corpuscular Hemoglobin Concent 29.8 g/dL (32.0-36.0) Red Cell Distribution Width 19.4 % (11.8-14.3) Platelet Count 14 10^3/uL (140-450) Mean Platelet Volume 9.5 fL (6.9-10.8) Neutrophils (%) (Auto) % (37.0-80.0) Lymphocytes (%) (Auto) % (10.0-50.0) Monocytes (%) (Auto) % (0.0-12.0) Basophils (%) (Auto) % (0.0-2.0) Neutrophils # (Auto) 10 ^3/uL (1.6-8.6) Lymphocytes # (Auto) 10 ^3/uL (0.4-5.4) Monocytes # (Auto) 10 ^3/uL (0-1.3) Differential Total Cells Counted 100.0 (100) Neutrophils % (Manual) 32 (37.0-80.0) Band Neutrophils % (Manual) 6 Lymphocytes % (Manual) 6 (10.0-50.0) Monocytes % (Manual) 38 (0-12) Eosinophils % (Manual) 0 (0-7) Basophils % (Manual) 0 (0.0-2.0) Metamyelocytes % (manual) 4 Myelocytes % (Manual) 11 Promyelocytes % (Manual) 1 Blast Cells % (Manual) 2 Nucleated Red Blood Cells 53.0 % Reactive Lymphocytes 0 Platelet Estimate Markedly decreased Sodium Level 140 mmol/L (136-145) Potassium Level 4.4 mmol/L (3.5-5.1) Chloride Level 110 mmol/L (98-107) Carbon Dioxide Level 17 mmol/L (20-31) Anion Gap 13 (5-15) Blood Urea Nitrogen 49 mg/dL (9-23) Creatinine 1.96 mg/dL (0.700-1.30) Glomerular Filtration Rate Calc 37 mL/min (>90) BUN/Creatinine Ratio 25.0 (10.0-20.0) Serum Glucose 89 mg/dL (74-106) Calcium Level 7.6 mg/dL (8.7-10.4) Phosphorus Level 4.8 mg/dL (2.4-5.1) Magnesium Level 2.4 mg/dL (1.6-2.6) Total Bilirubin 2.4 mg/dL (0.2-1.0) Aspartate Amino Transferase (AST) 197 U/L (13-40) Alanine Aminotransferase (ALT) 110 U/L (7-40) Alkaline Phosphatase 150 U/L (46-116) Total Protein 5.7 g/dL (5.7-8.2) Albumin 2.6 g/dL (3.2-4.8) Hepatitis B Surface Antigen Negative (Negative) Hepatitis C Antibody Negative (Negative) Eosinophils (%) (Auto) % (0.0-7.0) Eosinophils # (Auto) 10 ^3/uL (0-0.8) Basophils # (Auto) 10 ^3/uL (0-0.2) Anisocytosis (manual) Slight Macrocytosis Moderate Uric Acid 24.8 mg/dL (3.7-9.2) Lactate Dehydrogenase 2009 U/L (120-246) Urine Color Yellow (Yellow) Urine Clarity Clear (Clear) Urine pH 5.0 (5.0-9.0) Urine Specific [place] 1.012 (1.001-1.035) Urine Protein Trace (Negative) Urine Ketones Negative (Negative) Urine Blood Negative /uL (Negative) Urine Nitrite Negative (Negative) Urine Bilirubin Negative (Negative) Urine Urobilinogen 3 mg/dL (Negative) Urine Leukocyte Esterase Negative /uL (Negative) Urine RBC 1 /hpf (0 - 3) Urine Microscopic WBC 1 /HPF (0-3) Urine Squamous Epithelial Cells Few /hpf (<5) Urine Bacteria None seen /hpf (None Seen) Urine Hyaline Casts Few /lpf (0 - 2) Urine Glucose Normal mg/dL (Normal) Test 05/08/25 07:17 05/08/25 06:42 Lactic Acid Level 2.3 mmol/L (0.4-2.0) Troponin I High Sensitivity 4 ng/L (</=54) Other Laboratory Tests 05/10/25 04:44 Brief Hx & Hospital Course: 64 M with COPD on home o2, MDS, admitted for abdominal pain w/o NVD, found extremely elevated WBC, TIM, hyperK, uric acid. started on fluid and bicarb, ceft and flagyl, transfuse RBC. Seen by nephro. directly discussed w/ path and IR, smear showed leukoerythroblastic picture, for bone bx today. prelim bx showed unlikely acute leukemia, full result pending. case presented to [facility], patient accepted for transfer for tumor lysis. K stable, tim improved. 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 severe anemia req transfusion chronic hypoxic respiratory failure COPD group E tumor lysis syndrome microcytic anemia hyperkalemia TIM VMN on CKD s/p 1 unit PRBC ex smoker protein calorie malnutrition Discharge Disposition: Acute Care Facility Discharge Instruct/Medications Diet: Consistent carbohydrate, Cardiac 2g Na,low cholest Activity: No Restrictions, As Tolerated Scheduled Albuterol Sulfate (Albuterol Sulfate Hfa), 108 MCG IN DAILY Amlodipine Besylate (Amlodipine Besylate), 10 MG PO DAILY, (Reported) Carvedilol (Coreg), 1 TAB PO BID Ferrous Sulfate (Ferosul), 1 TAB PO DAILY, (Reported) Ferrous Sulfate (Ferrous Sulfate), 1 TAB PO DAILY Hydrochlorothiazide (Hydrochlorothiazide), 25 MG PO DAILY, (Reported) Nicotine (Nicotine Transdermal Syst), 1 PATCH TOP DAILY, (Reported) Tiotropium [place] Monohydrate (Spiriva Respimat), 2.5 MCG IN DAILY Discharge Statement: "Patient was advised to return to the ER or call 911 if any headaches, dizziness, shortness of breath, chest pain, abdominal pain, bleeding, fevers, or worsening of medical condition. Patient was counseled about treatment plan, medications, possible side effects, patientverbalized understanding. All questions were answered to the best of my ability. This discharge took greater then 30 minutes in planning, reviewing documentation, counseling the patient, and discussing with other team members." ASSESSMENT ASSESSMENT Assessment tumor lysis syndrome Date of Service: May 10, 2025 Billing Provider: MIRANDA TRAN MD Common Visit Codes: 21118-RDT/OBS DISCH DAY >30min MIRANDA TRAN MD May 10, 2025 14:54
[2025-05-10 16:22] LABS: Urine Amorphous Crystal FEW /hpf (None Seen); Urine Protein, UAD 1+ (Negative)
[2025-05-10 16:27] LABS: Protein, Urine 95.1 mg/dL (1-14)
[2025-05-10] MEDS: SALINE 0.65 % NASAL SPRAY 45ML BOTTLE EACHNOSTRI SCH (18:00)
== END 2025-05-10 23:20 | disposition short-term general hospital (02) | DRG 834 ==
LOC: EDUNIT# 06:04 → ER 06:04 → EDBD 06:04 → OVERFLOW 11:22 → TELE-EAST 23:03
PROVIDERS: ADMIT Student in an Organized Health Care Education/Training Program; ATTEND Student in an Organized Health Care Education/Training Program
PROC: 30233N1 Transfusion of Nonautologous Red Blood Cells into Peripheral Vein, Percutaneous Approach (ICD-10-PCS; 2025-05-08)
PROC: 07DR3ZX Extraction of Iliac Bone Marrow, Percutaneous Approach, Diagnostic (ICD-10-PCS; principal; 2025-05-09)
DX: C92.00 Acute myeloblastic leukemia, not having achieved remission (principal); E88.3 Tumor lysis syndrome; N17.0 Acute kidney failure with tubular necrosis; E46 Unspecified protein-calorie malnutrition; J44.1 Chronic obstructive pulmonary disease with (acute) exacerbation; D69.6 Thrombocytopenia, unspecified; Z99.81 Dependence on supplemental oxygen; D50.9 Iron deficiency anemia, unspecified; F17.200 Nicotine dependence, unspecified, uncomplicated; J96.11 Chronic respiratory failure with hypoxia; C93.10 Chronic myelomonocytic leukemia not having achieved remission; D46.9 Myelodysplastic syndrome, unspecified; K76.9 Liver disease, unspecified; I12.9 Hypertensive chronic kidney disease with stage 1 through stage 4 chronic kidney disease, or unspecified chronic kidney disease; Z68.1 Body mass index [BMI] 19.9 or less, adult; N18.2 Chronic kidney disease, stage 2 (mild); R62.7 Adult failure to thrive; J43.9 Emphysema, unspecified; E87.5 Hyperkalemia; Z79.899 Other long term (current) drug therapy
CPT/HCPCS: 10005; 36415; 36430; 71045; 72192; 76775; 77012; 80048; 80053; 81001; 82570; 83605; 83615; 83735; 84100; 84132; 84156; 84300; 84484; 84550; 85007; 85025; 85027; 86803; 86850; 86900; 86901; 86920; 87040; 87081; 87340; 94640; 94644; 96365; 96367; 96375; 99291; 99292; G0378; J1815; J2003; J2250; J3490